=== PATIENT | female | born 1955 ===

== ENCOUNTER 2020-05-29 11:37 | Observation (INO) | payer MEDICARE, MEDICAID, SELFPAY ==
[2020-05-29] VITALS (7 sets, daily range): BP systolic 148–171; BP diastolic 66–85; PULSE 66–77; RESP 16–18; TEMP 36.7–36.8; O2SAT 95–97; BMI 37.8
--- NOTE | 2020-05-29 | ECG_ITS ---
Test Reason : DIZZINESS Blood Pressure : / mmHG Vent. Rate : 080 BPM Atrial Rate : 080 BPM P-R Int : 170 ms QRS Dur : 100 ms QT Int : 382 ms P-R-T Axes : 055 -26 037 degrees QTc Int : 440 ms Normal sinus rhythm Normal ECG When compared with ECG of 17-FEB-2018 15:22, No significant change was found Referred By: Generic ED Physician Electronically Signed By:Durga Garcia
--- NOTE | ~2020-05-29 | CT_ITS ---
EXAMINATION: CT ANGIOGRAM HEAD CT ANGIOGRAM NECK CLINICAL INFORMATION: Dizziness. Stroke. Outside treatment window. COMPARISON: CT head from 05/08/2008. TECHNIQUE: Initial noncontrast cnc machine programmer imaging of the head and neck was performed. Noncontrast head CT was also performed. Test bolus sequences followed by intravenous administration 70 mL of Omnipaque 350. Helical imaging was performed in the axial plane from the aortic arch to the skull vertex. Delayed postcontrast imaging of the head was also performed. The data was processed at the geospatial technologist's workstation for generation of MIP sequences. Angled MIPs and volume rendered reformatted images were also generated at an offline 3D workstation. Stenoses are assessed in accordance with NASCET criteria unless otherwise indicated. DLP: 2293 mGy-cm This CT examination was performed using dose optimization techniques as appropriate, variously including the following: *Automated exposure control. *Adjustment of mA and/or kV according to patient size (this includes techniques or standardized protocols for targeted exams where dose is matched to indication/reason for exam; i.e. extremities or head). *Use of iterative reconstruction technique. FINDINGS: CT Head: There is no evidence of acute intracranial hemorrhage or edematous territorial infarction. Scattered hypoattenuation in the periventricular and deep white matter are consistent with mild to moderate microangiopathy. Herrera-white matter differentiation is preserved. The ventricles are normal in size and configuration. No evidence for obstructive hydrocephalus. No abnormal mass effect or midline shift. No extra-axial fluid collections. No pathologic intra-axial enhancement or regional oligemia. No acute soft tissue or osseous abnormalities. Moderate mucosal thickening of the paranasal sinuses. Odontogenic disease with periapical lucency associated with the maxillary right premolar. The mastoid air cells and middle ear cavities are clear. CT Neck: The thyroid gland and remaining cervical soft tissues are within normal limits. Moderate degenerative disc disease at C4-C5 and C5-C6 with disc-osteophyte complex formation. Mild facet and uncovertebral joint arthropathy. CT Upper Chest: The visualized lung apices and upper mediastinum are within normal limits. Neck CTA: Aortic Arch: Normal contour and caliber with mild calcific atherosclerotic disease. Classic 3 vessel branching pattern of the aortic arch. Great Vessel Origins: No significant stenosis of the branch origins. Right Common Carotid Artery: Normal opacification without focal stenosis or occlusion. Cervical Right Internal Carotid Artery: Mild calcific atherosclerotic disease of the carotid bulb and proximal internal carotid artery without flow-limiting stenosis. Left Common Carotid Artery: Normal opacification without focal stenosis or occlusion. Cervical Left Internal Carotid Artery: Mild calcific atherosclerotic disease of the carotid bulb and proximal internal carotid artery without flow-limiting stenosis. Cervical Right Vertebral Artery: Co-dominant. Normal opacification without focal stenosis or occlusion. Cervical Left Vertebral Artery: Co-dominant. Normal opacification without focal stenosis or occlusion. Brain CTA: Intracranial Internal Carotid Arteries: Normal contrast opacification of the petrous, cavernous, paraophthalmic, and supraclinoid segments of the internal carotid arteries without focal stenosis. Right Anterior Cerebral Artery: Normal A1 segment. Normal opacification of the distal segments of the AGGIE. Left Anterior Cerebral Artery: Normal A1 segment. There is a 0.2 cm aneurysm associated with the a 3 segment (image [id number]). Otherwise, normal Opacification of the distal segments of the AGGIE. Anterior Communicating Artery: Normal. Right Middle Cerebral Artery: Normal opacification of the M1 segment of the MCA without focal stenosis or occlusion. Normal arborization of the distal segments. Left Middle Cerebral Artery: Normal opacification of the M1 segment of the MCA without focal stenosis or occlusion. Normal arborization of the distal segments. Right Vertebral Artery: Normal opacification of the V4 segment. Normal opacification of the proximal segments of the posterior inferior cerebellar artery. Left Vertebral Artery: Normal opacification of the V4 segment. Normal opacification of the proximal segments of the posterior inferior cerebellar artery. Basilar Artery: Normal opacification without focal stenosis or occlusion. Normal appearance of the proximal superior cerebellar arteries. Right Posterior Cerebral Artery: Normal P1 segment. Normal opacification of the distal segments of the DRUPAL PHP DEVELOPER. Left Posterior Cerebral Artery: Normal P1 segment. Normal opacification of the distal segments of the DRUPAL PHP DEVELOPER. Normal opacification of the superior sagittal, straight, transverse, and sigmoid sinuses. CT/CT angio head neck IMPRESSION: 1. No evidence of acute intracranial hemorrhage or edematous territorial infarction. 2. There is a 0.2 cm aneurysm associated with the A3 segment of the left anterior cerebral artery. 3. CTA of the head and neck without proximal occlusion or flow-limiting stenosis.
[2020-05-29 14:57] LABS: MANUAL DIFF FLAG NO
[2020-05-29 14:58] LABS: Basophils Percent Auto 0.6 % (0-2); Eosinophils Absolute Auto 0.1 X10*3/uL (0.0-0.4); Hematocrit 38.9 % (37-47); Hemoglobin 12.6 g/dl (12.0-16.0); Imm Gran Abs Auto 0.02 X10*3/uL (0.00-0.03); Imm Gran Pct Auto 0.3 % (0.0-0.4); Lymphocytes Absolute Auto 2.2 X10*3/uL (1.2-4.9); Lymphocytes Percent Auto 30.6 % (20-40); Mean Corpuscular HGB Conc 32.4 g/dl (31.0-35.0); Mean Corpuscular Hemoglobin 26.8 pg (27.0-33.0); Mean Corpuscular Volume 82.6 fL (80-98); Mean Platelet Volume 10.8 fL (9.4-12.3); Monocytes Absolute Auto 0.5 X10*3/uL (0.1-1.2); Monocytes Percent Auto 6.5 % (2-11); Neutrophils Absolute Auto 4.3 X10*3/uL (2.0-8.3); Platelet Count 212 X10*3/uL (160-400); Red Blood Count 4.71 X10*6/uL (4.20-5.50); Red Cell Distribution Width 12.3 % (11.0-16.0); White Blood Count 7.1 X10*3/uL (4.8-10.8)
[2020-05-29 15:18] LABS: Anion Gap 12 (12-20); Blood Urea Nitrogen 14 mg/dL (9-16); Calcium 10.9 mg/dL (8.4-10.2); Carbon Dioxide 30 mmol/L (22-29); Chloride 99 mmol/L (96-108); Estimated Glomerular Filt Rate > 60; Glucose Random 189 mg/dL (60-115); Potassium 4.3 mmol/L (3.3-5.1); Sodium 137 mmol/L (135-145)
[2020-05-29 15:49] LABS: Glucose, Whole Blood 143 mg/dL (60-115)
[2020-05-29] MEDS: 0.9 % Sodium Chloride 1,000 ML 999 ML IV (18:19)
[2020-05-29] MEDS: Meclizine HCl 25 MG TABLET 50 MG PO (18:19)
[2020-05-29 18:26] LABS: Glucose Urine UA NEG (NEG); Leukocyte Esterase Urine TRACE (NEG); Nitrite Urine POS (NEG); PH >= 9.0 (5.0-8.0); UACC Culture Trigger YES; Urine Blood NEG (NEG); Urine Ketones NEG (NEG); Urine Protein NEG (NEG-TRACE)
--- NOTE | 2020-05-29 18:26 | ED.GENADULT ---
HPI - General Adult General Chief complaint: Nausea/Vomiting/Diarrhea Stated complaint: HIGH BS,DIZZINESS Time Seen by Provider: 05/29/20 12:35 Source: patient Mode of arrival: ambulatory Limitations: no limitations History of Present Illness HPI narrative: Patient presents to ED for dizziness which occurred while she was sitting at 10:00 o'clock in the morning. Patient felt like she was moving. Patient denied having any slurred speech, loss of vision, facial droop, or paralysis of extremities. Patient states when she stood up dizziness got worse. Patient states when dizziness episode occurred her blood pressure systolic was 144 and fingerstick glucose was 200s. Patient denies ever having chest pain, headache, or passing out. Related Data Home Medications Medication Instructions Recorded Confirmed allopurinol 100 mg PO DAILY 05/29/20 05/29/20 amlodipine 5 mg PO DAILY 05/29/20 05/29/20 aspirin 81 mg PO DAILY 05/29/20 05/29/20 atorvastatin 40 mg PO BEDTIME 05/29/20 05/29/20 blood sugar diagnostic [FreeStyle 05/29/20 05/29/20 Lite Strips] cholecalciferol (vitamin D3) 50 mcg PO QAM 05/29/20 05/29/20 citalopram 20 mg PO DAILY 05/29/20 05/29/20 dulaglutide [Trulicity] 1.5 mg SUBCUT QWEEK 05/29/20 05/29/20 insulin glargine [Lantus U-100 25 unit SUBCUT DAILY 05/29/20 05/29/20 Insulin] metformin 1,000 mg PO BID 05/29/20 05/29/20 Allergies Allergy/AdvReac Type Severity Reaction Status Date / Time No Known Allergies Allergy Unverified 12/27/19 16:37 [No Known Allergies*] Review of Systems Review of Systems: Yes all other systems are reviewed and are negative Constitutional: Constitutional: Reports as per HPI, Reports no additional constitutional complaints and Reports anorexia Eyes: Eyes: Reports as per HPI and Reports no additional eye complaints ENT: Reports system reviewed and no additional complaints, except as documented, Reports as per HPI, Reports vertigo and Reports dizziness Cardiovascular: Cardiovascular: Reports as per HPI and Reports no additional cardiovascular complaints Respiratory: Respiratory: Reports as per HPI and Reports no additional respiratory complaints Gastrointestinal: Gastrointestinal: Reports as per HPI and Reports no additional gastrointestinal complaints Genitourinary: Genitourinary: Reports no additional female genitourinary complaints and Reports as per HPI Musculoskeletal: Musculoskeletal: Reports no additional musculoskeletal complaints and Reports as per HPI Neurologic: Reports system reviewed and no additional complaints, except as documented, Reports as per HPI, Reports vertigo and Reports dizziness Psychiatric: Psychiatric: Reports no additional psychiatric complaints and Reports as per HPI [facility]LY [facility] Past Medical History Medical History (Updated 05/30/20 @ 01:07 by HUMAIRA Hernandez) Diabetes type 2, uncontrolled HTN (hypertension) Vitamin D deficiency Social History Social History Smoking Status: Unknown if ever smoked Use of substances other than those prescribed or required for medical reasons: No Advance Directives: No Advance Directives Information Provided: Yes Physical Exam Vital Signs: Vital Signs: Last Vital Signs Temp 98.3 F 05/29/20 20:22 Pulse 76 05/29/20 22:16 Resp 18 05/29/20 22:16 BP 152/72 H 05/29/20 22:16 Pulse Ox 97 05/29/20 22:16 Body Mass Index 37.8 Const: General: cooperative, healthy appearing, comfortable, no acute distress, well developed, alert, awake and Physically active HENMT: Other: Patient has known chronic left ear hearing loss Head: Yes normal to inspection, Yes No palpable skull fracture present, Yes normocephalic, Yes atraumatic, Yes abrasion, No Gerber's sign, No contusion, No cranial bruits, No hematoma, No laceration, No occipital foramen tenderness, No palpable skull fracture, No raccoon eyes, No scalp tenderness, No Temporal artery tenderness present and No periorbital ecchymosis Ears: external ears normal, TM's normal bilaterally and TM normal on the right Eyes: Other: Positive for left horizontal nystagmus General: appearance normal, both eyes and all related structures Neck: Neck: Yes normal visual inspection, Yes full ROM, Yes no lymphadenopathy, Yes no meningeal signs, Yes trachea midline, Yes supple and No tender Chest: Chest palpation & inspection: normal inspection of the chest and normal palpation of entire chest wall Resp: Effort & Inspection: normal respiratory effort and able to speak in complete sentences Auscultation: clear to auscultation bilaterally Cardio: Jugular venous distension: no JVD Heart sounds: S1 normal heart sound present and S2 normal heart sound present GI: Inspection: Yes normal to inspection and No abdominal wall ecchymosis Palpation (GI): Soft to palpation, not firm, nontender, no guarding and not rigid : General: No CVA tenderness and Yes no CVA tenderness Back/Spine/Pelvis: Back: no CVA tenderness, No CVA tenderness and No back tenderness Skin: General skin exam: no rashes or lesions noted and elasticity normal Neuro: Other: Negative for facial droop. Negative slurred speech. Negative pronator drift. All extremities motor strength are equal and 5+. Rapid hand movement is intact. Tried to do Romberg but patient felt dizzy and almost fell. General: no meningeal signs Extrem: General: Yes normal to inspection and Yes full ROM Psych: Appearance: grossly normal, well kempt and not disheveled Course Course Course Narrative: Negative for any neuro deficit. If stroke patient already of the window. Blood pressure and fingerstick glucose are normal. Will have cardiac evaluation due to risk factors of age and diabetes. The patient of the window and orthostatics negative will send patient for head CT a. Will give fluids. Also given meclizine 50 mg. If patient does not improve will reassess and may need to be admitted for MRI to rule out posterior cerebellar stroke if there is no improvement. Reevaluation(s) Reevaluation #1: While a in the CT scan room per hours informed by technical service representative the patient states she had allergic reaction in the past with IV contrast. Patient states having hives, but no anaphylactic reaction. Patient given Benadryl and Solu-Medrol before CT scan was performed. Patient's troponin negative. UA shows nitrate. Avoid orthostatic results. Time: 19:40 Reevaluation #2: Patient's orthostatics negative. Awaiting for results of head CT a. Time: 20:04 Reevaluation #3: Head CT is negative for signs of stroke. 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 Case presented to hospitalist Dr. Rouse for admission for MRI in the morning to rule out posterior stroke . On ambulation patient felt dizzy. Valium ordered. Patient started on antibiotics for UTI. Patient has no urinary symptoms. Medical Decision Making MDM Narrative Medical decision making narrative: Dizziness. BRIELLE Lab Data Result diagrams: 05/29/20 14:51 05/29/20 14:51 Labs: Lab Results 05/29/20 05/29/20 05/29/20 Range/Units 14:51 14:51 15:42 WBC 7.1 (4.8-10.8) X10*3/uL RBC 4.71 (4.20-5.50) X10*6/uL Hgb 12.6 (12.0-16.0) g/dl Hct 38.9 (37-47) % MCV 82.6 (80-98) fL MCH 26.8 L (27.0-33.0) pg MCHC 32.4 (31.0-35.0) g/dl RDW 12.3 (11.0-16.0) % Plt Count 212 (160-400) X10*3/uL MPV 10.8 (9.4-12.3) fL Immature Gran % (Auto) 0.3 (0.0-0.4) % Neut % (Auto) 60.0 (45-73) % Lymph % (Auto) 30.6 (20-40) % Ogle % (Auto) 6.5 (2-11) % Eos % (Auto) 2.0 (0-4) % Baso % (Auto) 0.6 (0-2) % Lymph # (Auto) 2.2 (1.2-4.9) X10*3/uL Ogle # (Auto) 0.5 (0.1-1.2) X10*3/uL Eos # (Auto) 0.1 (0.0-0.4) X10*3/uL Baso # (Auto) 0.0 (0.0-0.2) X10*3/uL Abs Immat Gran (auto) 0.02 (0.00-0.03) X10*3/uL Absolute Neuts (auto) 4.3 (2.0-8.3) X10*3/uL Absolute Nucleated RBC 0.000 (0.0-0.012) X10*3/uL Nucleated RBC % (auto) 0.0 (0.0-0.2) /100WBC PT (10.8-13.0) SEC INR (0.9-1.1) APTT (24.1-38.0) SEC Sodium 137 (135-145) mmol/L Potassium 4.3 (3.3-5.1) mmol/L Chloride 99 (96-108) mmol/L Carbon Dioxide 30 H (22-29) mmol/L Anion Gap 12 (12-20) BUN 14 (9-16) mg/dL Creatinine 0.77 (0.5-1.4) mg/dL Estim Creat Clear Calc TNP Estimated GFR > 60 POC Glucose 143 H (60-115) mg/dL Random Glucose 189 H (60-115) mg/dL Calcium 10.9 H (8.4-10.2) mg/dL Troponin I High Sens (<3.5-17.0) ng/L Urine Color Urine Appearance Urine pH (5.0-8.0) Ur Specific [place] (1.005-1.025) Urine Protein (NEG-TRACE) MG/DL Urine Glucose (UA) (NEG) MG/DL Urine Ketones (NEG) MG/DL Urine Blood (NEG) Urine Nitrite (NEG) Ur Leukocyte Esterase (NEG) Urine RBC (0) /HPF Urine WBC (0-4) /HPF Ur Squamous Epith Cells /LPF Urine Bacteria /LPF 05/29/20 05/29/20 05/29/20 Range/Units 18:11 18:17 18:17 WBC (4.8-10.8) X10*3/uL RBC (4.20-5.50) X10*6/uL Hgb (12.0-16.0) g/dl Hct (37-47) % MCV (80-98) fL MCH (27.0-33.0) pg MCHC (31.0-35.0) g/dl RDW (11.0-16.0) % Plt Count (160-400) X10*3/uL MPV (9.4-12.3) fL Immature Gran % (Auto) (0.0-0.4) % Neut % (Auto) (45-73) % Lymph % (Auto) (20-40) % Ogle % (Auto) (2-11) % Eos % (Auto) (0-4) % Baso % (Auto) (0-2) % Lymph # (Auto) (1.2-4.9) X10*3/uL Ogle # (Auto) (0.1-1.2) X10*3/uL Eos # (Auto) (0.0-0.4) X10*3/uL Baso # (Auto) (0.0-0.2) X10*3/uL Abs Immat Gran (auto) (0.00-0.03) X10*3/uL Absolute Neuts (auto) (2.0-8.3) X10*3/uL Absolute Nucleated RBC (0.0-0.012) X10*3/uL Nucleated RBC % (auto) (0.0-0.2) /100WBC PT 12.4 (10.8-13.0) SEC INR 1.0 (0.9-1.1) APTT 33.3 (24.1-38.0) SEC Sodium (135-145) mmol/L Potassium (3.3-5.1) mmol/L Chloride (96-108) mmol/L Carbon Dioxide (22-29) mmol/L Anion Gap (12-20) BUN (9-16) mg/dL Creatinine (0.5-1.4) mg/dL Estim Creat Clear Calc Estimated GFR POC Glucose (60-115) mg/dL Random Glucose (60-115) mg/dL Calcium (8.4-10.2) mg/dL Troponin I High Sens < 3.5 (<3.5-17.0) ng/L Urine Color YELLOW Urine Appearance CLOUDY Urine pH >= 9.0 H (5.0-8.0) Ur Specific [place] 1.010 (1.005-1.025) Urine Protein NEG (NEG-TRACE) MG/DL Urine Glucose (UA) NEG (NEG) MG/DL Urine Ketones NEG (NEG) MG/DL Urine Blood NEG (NEG) Urine Nitrite POS H (NEG) Ur Leukocyte Esterase TRACE H (NEG) Urine RBC 0-2 (0) /HPF Urine WBC 1-4 (0-4) /HPF Ur Squamous Epith Cells TRACE /LPF Urine Bacteria 2+ /LPF ECG Data Interpretation: Normal sinus rhythm. Normal EKG. Negative STEMI. Ventricular rate 80. LA interval 170. QTC 440. Discharge Plan Discharge Clinical Impression: Dizziness, Acute UTI Patient Disposition: Admitted As Inpatient
[2020-05-29 18:30] LABS: Appearance Urine CLOUDY; Color Urine YELLOW
[2020-05-29 18:32] LABS: Prothrombin Time 12.4 SEC (10.8-13.0)
[2020-05-29 18:35] LABS: Partial Thromboplastin Time 33.3 SEC (24.1-38.0)
[2020-05-29 18:38] LABS: Bacteria Urine 2+ /LPF; RBC Urine 0-2 /HPF (0); Squamous Epithelial Cell Urine TRACE /LPF
[2020-05-29 18:52] LABS: Troponin-I High Sensitivity < 3.5 ng/L (<3.5-17.0)
--- NOTE | 2020-05-29 19:17 | PC.NURSE ---
Patient in cat scan for cta. Patient had an allergic reaction to contrast and was medicated per emar as noted.
[2020-05-29] MEDS: methylPREDNISolone Sod Succ/PF 125 MG/2 ML VIAL IVPUSH (19:18)
[2020-05-29] MEDS: diphenhydrAMINE HCL 50 MG/ML VIAL IVPUSH (19:18)
[2020-05-29] MEDS: iohexoL 350 MG/ML 100 ML INFUS..BTL IV (19:31)
--- NOTE | 2020-05-29 22:08 | PM.IMHP ---
History of Present Illness Date of Service: 05/29/20 Chief Complaint: Dizziness 65-year-old female with a past medical history of hypertension, diabetes, left ear hearing loss presented to the hospital with a chief complaint of dizziness. Patient reports that around 10:00 a.m. she was sitting and suddenly felt room spinning associated nausea vomiting. Denies any headaches or blurry visions. When she tried to stand up her symptoms got worsened. Subsequently came to the ER for further evaluation. Denies any chest pain palpitations. Denies any numbness tingling. Denies any fever chills cough. Denies any recent travel or sick contacts. Denies any focal weakness. Denies any fall or loss of consciousness. Review of all other systems is negative except mentioned above ER course: Per ER team patient's exam was nonfocal CTA head and neck showed no acute findings except for small aneurysm. Patient on exam also noted to have nystagmus. Patient was given meclizine with improvement slightly. But was unsteady on gait. Orthostatics were negative EKG nonischemic and troponins negative. Also noted to have UTI-given antibiotics. Admitted to the hospital for further management [facility] Medical History (Updated 05/30/20 @ 01:07 by HUMAIRA Hernandez) Diabetes type 2, uncontrolled HTN (hypertension) Vitamin D deficiency Social History Smoking Status: Unknown if ever smoked Use of substances other than those prescribed or required for medical reasons: No Advance Directives: No Advance Directives Information Provided: Yes Meds Allergies Allergy/AdvReac Type Severity Reaction Status Date / Time No Known Allergies Allergy Unverified 12/27/19 16:37 [No Known Allergies*] Active Medications: Current Medications Generic Name Dose Route Start Last Admin Trade Name Freq PRN Reason Stop Dose Admin Acetaminophen 650 mg 05/29/20 22:03 Acetaminophen Supp 650 Mg Supp.Rect KS Q6H PRN Pain, Mild (Pain Scale 1-3) Ceftriaxone Sodium 1 gm/ 50 mls @ 100 mls/hr 05/29/20 22:03 Sodium Chloride IV 05/29/20 22:32 ONCE ONE Ceftriaxone Sodium 1 gm/ 50 mls @ 100 mls/hr 05/29/20 22:15 Sodium Chloride IV Q24H [facility] Insulin Human Lispro 0 unit 05/30/20 07:30 Insulin Lispro 100 Unit/Ml 3 Ml Vial SUBCUT QIDACHS [facility] Labetalol HCl 10 mg 05/29/20 22:06 Labetalol Hcl 100 Mg/20 Ml Vial IVPUSH Q4H PRN BP>140/90 Meclizine HCl 25 mg 05/29/20 22:05 Meclizine Hcl 25 Mg Tablet PO Q8H PRN dizziness Pharmacy Consult 1 each 05/29/20 21:52 Consult Rx Perform Med Rec MISCELLANE ONCE PRN Consult order Sodium Chloride 3 ml 05/30/20 00:00 0.9 % Sodium Chloride Flush 3 Ml Syringe IVFLUSH QSWVFT [facility] Home Medications Medication Instructions Recorded Confirmed Last Taken Type allopurinol 100 mg PO DAILY 05/29/20 05/29/20 Unknown History amlodipine 5 mg PO DAILY 05/29/20 05/29/20 Unknown History aspirin 81 mg PO DAILY 05/29/20 05/29/20 Unknown History atorvastatin 40 mg PO BEDTIME 05/29/20 05/29/20 Unknown History blood sugar diagnostic [FreeStyle 05/29/20 05/29/20 Unknown History Lite Strips] cholecalciferol (vitamin D3) 50 mcg PO QAM 05/29/20 05/29/20 Unknown History citalopram 20 mg PO DAILY 05/29/20 05/29/20 Unknown History dulaglutide [Trulicity] 1.5 mg SUBCUT QWEEK 05/29/20 05/29/20 Unknown History insulin glargine [Lantus U-100 25 unit SUBCUT DAILY 05/29/20 05/29/20 Unknown History Insulin] metformin 1,000 mg PO BID 05/29/20 05/29/20 Unknown History Physical Exam Vital Signs and Narrative: Vital Signs: Last Vital Signs Temp 98.3 F 05/29/20 20:22 Pulse 66 05/29/20 20:22 Resp 18 05/29/20 20:22 BP 148/66 H 05/29/20 20:22 Pulse Ox 96 05/29/20 20:22 Body Mass Index 37.8 Gen: Appears be in no acute distress HEENT: NCAT, Moist mucosa. Pulmonary: Vesicular breath sounds, fair air entry CVS: Normal S1-S2 Abdomen: BS+, Soft, Nontender Extremities: Warm well perfused Neuro: Alert and awake. Grossly nonfocal Gait not assessed Results Labs CBC and Chem 7: 05/29/20 14:51 05/29/20 14:51 Labs: Laboratory Results - last 24 hr 05/29/20 05/29/20 05/29/20 14:51 14:51 15:42 MCV 82.6 MCH 26.8 L MCHC 32.4 RDW 12.3 Plt Count 212 MPV 10.8 Immature Gran % (Auto) 0.3 Neut % (Auto) 60.0 Lymph % (Auto) 30.6 [place] % (Auto) 6.5 Eos % (Auto) 2.0 Baso % (Auto) 0.6 Lymph # (Auto) 2.2 [place] # (Auto) 0.5 Eos # (Auto) 0.1 Baso # (Auto) 0.0 Abs Immat Gran (auto) 0.02 Absolute Neuts (auto) 4.3 Absolute Nucleated RBC 0.000 Nucleated RBC % (auto) 0.0 PT INR APTT Anion Gap 12 Estim Creat Clear Calc TNP Estimated GFR > 60 POC Glucose 143 H Random Glucose 189 H Calcium 10.9 H Troponin I High Sens Urine Color Urine Appearance Urine pH Ur Specific [place] Urine Protein Urine Glucose (UA) Urine Ketones Urine Blood Urine Nitrite Ur Leukocyte Esterase Urine RBC Urine WBC Ur Squamous Epith Cells Urine Bacteria 05/29/20 05/29/20 05/29/20 18:11 18:17 18:17 MCV MCH MCHC RDW Plt Count MPV Immature Gran % (Auto) Neut % (Auto) Lymph % (Auto) [place] % (Auto) Eos % (Auto) Baso % (Auto) Lymph # (Auto) [place] # (Auto) Eos # (Auto) Baso # (Auto) Abs Immat Gran (auto) Absolute Neuts (auto) Absolute Nucleated RBC Nucleated RBC % (auto) PT 12.4 INR 1.0 APTT 33.3 Anion Gap Estim Creat Clear Calc Estimated GFR POC Glucose Random Glucose Calcium Troponin I High Sens < 3.5 Urine Color YELLOW Urine Appearance CLOUDY Urine pH >= 9.0 H Ur Specific [place] 1.010 Urine Protein NEG Urine Glucose (UA) NEG Urine Ketones NEG Urine Blood NEG Urine Nitrite POS H Ur Leukocyte Esterase TRACE H Urine RBC 0-2 Urine WBC 1-4 Ur Squamous Epith Cells TRACE Urine Bacteria 2+ Imaging Radiologist's Impressions: Impressions Head/Neck CTA 05/29/20 18:35 IMPRESSION: 1. No evidence of acute intracranial hemorrhage or edematous territorial infarction. 2. There is a 0.2 cm aneurysm associated with the A3 segment of the left anterior cerebral artery. 3. CTA of the head and neck without proximal occlusion or flow-limiting stenosis. Assessment and Plan (1) Dizziness: Status: Acute 65-year-old female with a past medical history of hypertension, diabetes, left ear hearing loss presented to the hospital with a chief complaint of dizziness/room spinning. Noted to have vertigo. Vertigo: Concern for BPPV. Patient noted to have nausea vomiting and also nystagmus along with the symptoms. Symptoms slightly improved with meclizine. Currently unsteady on gait-fall precautions. PT/OT. Patient would benefit vestibular rehab as outpatient. CTA showed no acute findings. Troponins negative, EKG nonischemic, orthostatics negative. Neurology consult for further recommendations Meclizine p.r.n. UTI: Continue ceftriaxone. Follow up cultures. Brain aneurysm: Patient currently denies any headaches or blurry visions. Labetalol p.r.n. to keep the goal blood pressure less than 140/90. Diabetes: Insulin sliding scale. Follow fingerstick glucose. Titrate insulins as needed. Hypertension: Continue home medications DVT prophylaxis: SCD boots Full code
[2020-05-29 22:33] LABS: Glucose, Whole Blood 247 mg/dL (60-115)
[2020-05-29 22:51] LABS: COVID-19 Test Negative (Negative); IDNOW Serial# 9DD0AD1C
[2020-05-29] MEDS: diazePAM 5 MG TABLET PO (23:11)
[2020-05-29] MEDS: cefTRIAXone sodium 1 GM in 0.9 % Sodium Chloride 50 ML IV (23:11)
[2020-05-29] MEDS: 0.9 % Sodium Chloride 1,000 ML 75 ML IVCONT (23:58)
[2020-05-30] VITALS (10 sets, daily range): BP systolic 113–144; BP diastolic 50–74; PULSE 66–89; RESP 13–21; TEMP 36.1–36.6; O2SAT 95–98
[2020-05-30 00:29] LABS: Reflex Lactate? Lactic Acid Added
[2020-05-30 02:55] LABS: Reflex Lactate? 2 Y
[2020-05-30 03:57] LABS: Magnesium 1.5 mg/dL (1.6-2.6)
[2020-05-30 04:08] LABS: ~Lactic Acid-LAB USE ONLY 3.4 mmol/L (0.5-2.0)
[2020-05-30 07:52] LABS: Glucose, Whole Blood 305 mg/dL (60-115)
[2020-05-30 08:07] LABS: MANUAL DIFF FLAG NO
[2020-05-30] MEDS: Aspirin Enteric Coated 81 MG TABLET.DR PO (08:07)
[2020-05-30] MEDS: amLODIPine Besylate 5 MG TABLET PO (08:07)
[2020-05-30] MEDS: allopurinoL 100 MG TABLET PO (08:08)
[2020-05-30] MEDS: Insulin Lispro 100 UNIT/ML 3 ML VIAL SUBCUT ×3 (08:08→20:49)
[2020-05-30] MEDS: Cholecalciferol (Vitamin D3) 25 MCG TABLET 50 MCG PO (08:08)
[2020-05-30] MEDS: Escitalopram Oxalate 10 MG TABLET PO (08:08)
[2020-05-30] MEDS: metFORMIN HCl 1,000 MG TABLET 1000 MG PO ×2 (08:08→17:08)
[2020-05-30 08:11] LABS: Basophils Percent Auto 0.1 % (0-2); Imm Gran Abs Auto 0.03 X10*3/uL (0.00-0.03); Imm Gran Pct Auto 0.3 % (0.0-0.4); Lymphocytes Absolute Auto 1.1 X10*3/uL (1.2-4.9); Lymphocytes Percent Auto 10.3 % (20-40); Mean Corpuscular HGB Conc 32.4 g/dl (31.0-35.0); Mean Corpuscular Hemoglobin 26.5 pg (27.0-33.0); Mean Corpuscular Volume 81.7 fL (80-98); Mean Platelet Volume 10.9 fL (9.4-12.3); Monocytes Absolute Auto 0.2 X10*3/uL (0.1-1.2); Monocytes Percent Auto 1.5 % (2-11); Neutrophils Percent Auto 87.8 % (45-73); Platelet Count 222 X10*3/uL (160-400); Red Blood Count 4.53 X10*6/uL (4.20-5.50); Red Cell Distribution Width 12.3 % (11.0-16.0); White Blood Count 10.3 X10*3/uL (4.8-10.8)
[2020-05-30 08:37] LABS: Anion Gap 15 (12-20); Blood Urea Nitrogen 20 mg/dL (9-16); Calcium 9.7 mg/dL (8.4-10.2); Carbon Dioxide 23 mmol/L (22-29); Chloride 99 mmol/L (96-108); Creatinine Clr Calc Pharmacy 77.5; Estimated Glomerular Filt Rate > 60; Glucose Random 323 mg/dL (60-115); Potassium 4.5 mmol/L (3.3-5.1); Sodium 132 mmol/L (135-145)
--- NOTE | 2020-05-30 10:00 | PC.NURSE ---
pt was ambulatory o bathroom with walker, she is able to self care for her ostomy appliance. Pt ambulated with steady gait
[2020-05-30 12:39] LABS: Glucose, Whole Blood 194 mg/dL (60-115)
[2020-05-30] MEDS: 0.9 % Sodium Chloride 1,000 ML 75 ML IVCONT (12:40)
--- NOTE | 2020-05-30 15:33 | P.CNNE_ITS ---
History of Present Illness Data of Consult Service Date: 05/30/20 Primary Care Provider: Unknown Physician HPI Reason for consult: Dizziness with nausea This is a 65-year-old woman with a history of hypertension diabetes and a previous sudden hearing loss in one year who was sitting when she suddenly developed vertiginous dizziness nausea and unsteadiness. She was brought to the hospital and admitted. She had a negative CT scan of the head and a CTA of the head and neck which showed no conclusive and flow-limiting lesions. 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 Review of Systems Eyes: Eyes: Reports no additional eye complaints ENT: Reports system reviewed and no additional complaints, except as documented and Reports Normal hearing present Cardiovascular: Cardiovascular: Reports no additional cardiovascular complaints Respiratory: Respiratory: Reports no additional respiratory complaints Gastrointestinal: Gastrointestinal: Reports no additional gastrointestinal complaints Musculoskeletal: Musculoskeletal: Reports no additional musculoskeletal complaints Integumentary/Breasts: Skin/Breast: Reports system reviewed and no additional complaints, except as docu Neurologic: Reports as per HPI and Reports Normal hearing present Psychiatric: Psychiatric: Reports as per HPI Endocrine: Endocrine: Reports no additional endocrine complaints Hematologic/Lymphatic: Hematologic/Lymphatic: Reports no additional hematologic/lymphatic complaints Allergic/Immunologic: Allergic/Immunologic: Reports no additional allergic/immunologic complaints [facility] Past Medical History Medical History (Updated 05/30/20 @ 15:36 by Gypsy Rodríguez MD) Diabetes type 2, uncontrolled HTN (hypertension) Vitamin D deficiency Social History Social History Smoking Status: Unknown if ever smoked Use of substances other than those prescribed or required for medical reasons: No Advance Directives: No Advance Directives Information Provided: Yes Meds Allergies Allergy/AdvReac Type Severity Reaction Status Date / Time No Known Allergies Allergy Unverified 12/27/19 16:37 [No Known Allergies*] Active Medications: Current Medications Generic Name Dose Route Start Last Admin Trade Name Freq PRN Reason Stop Dose Admin Acetaminophen 650 mg 05/29/20 22:03 Acetaminophen Supp 650 Mg Supp.Rect [place] Q6H PRN Pain, Mild (Pain Scale 1-3) Allopurinol 100 mg 05/30/20 09:00 05/30/20 08:08 Allopurinol 100 Mg Tablet PO 100 mg DAILY JERRELL Administration Amlodipine Besylate 5 mg 05/30/20 09:00 05/30/20 08:07 Amlodipine Besylate 5 Mg Tablet PO 5 mg DAILY [facility] Administration Protocol Aspirin 81 mg 05/30/20 09:00 05/30/20 08:07 Aspirin Enteric Coated 81 Mg Tablet. PO 81 mg DAILY [facility] Administration Atorvastatin Calcium 40 mg 05/30/20 21:00 Atorvastatin Calcium 40 Mg Tablet PO BEDTIME [facility] Escitalopram Oxalate 10 mg 05/30/20 09:00 05/30/20 08:08 Escitalopram Oxalate 10 Mg Tablet PO 10 mg DAILY [facility] Administration Ceftriaxone Sodium 1 gm/ 50 mls @ 100 mls/hr 05/30/20 22:00 Sodium Chloride IV Q24H JERRELL Sodium Chloride 1,000 mls @ 75 mls/hr 05/29/20 23:00 05/30/20 12:40 Ns IVCONT 75 mls/hr .[id number] [facility] Administration Insulin Human Lispro 0 unit 05/30/20 07:30 05/30/20 12:41 Insulin Lispro 100 Unit/Ml 3 Ml Vial SUBCUT Not Given QIDACHS [facility] Protocol Labetalol HCl 10 mg 05/29/20 22:06 Labetalol Hcl 100 Mg/20 Ml Vial IVPUSH Q4H PRN BP>140/90 Meclizine HCl 25 mg 05/29/20 22:05 Meclizine Hcl 25 Mg Tablet PO Q8H PRN dizziness Metformin HCl 1,000 mg 05/30/20 08:00 05/30/20 08:08 Metformin Hcl 1,000 Mg Tablet PO 1,000 mg BID@0800,1700 [facility] Administration Pharmacy Consult 1 each 05/29/20 21:52 Consult Rx Perform Med Rec MISCELLANE ONCE PRN Consult order Sodium Chloride 3 ml 05/30/20 00:00 05/30/20 07:45 0.9 % Sodium Chloride Flush 3 Ml Syringe IVFLUSH Not Given QSHIFT [facility] Vitamin D 50 mcg 05/30/20 09:00 05/30/20 08:08 Cholecalciferol (Vitamin D3) 25 Mcg Tablet PO 50 mcg DAILY [facility] Administration Home Medications Medication Instructions Recorded Confirmed Last Taken Type allopurinol 100 mg PO DAILY 05/29/20 05/29/20 Unknown History amlodipine 5 mg PO DAILY 05/29/20 05/29/20 Unknown History aspirin 81 mg PO DAILY 05/29/20 05/29/20 Unknown History atorvastatin 40 mg PO BEDTIME 05/29/20 05/29/20 Unknown History blood sugar diagnostic [FreeStyle 05/29/20 05/29/20 Unknown History Lite Strips] cholecalciferol (vitamin D3) 50 mcg PO QAM 05/29/20 05/29/20 Unknown History citalopram 20 mg PO DAILY 05/29/20 05/29/20 Unknown History dulaglutide [Trulicity] 1.5 mg SUBCUT QWEEK 05/29/20 05/29/20 Unknown History insulin glargine [Lantus U-100 25 unit SUBCUT DAILY 05/29/20 05/29/20 Unknown History Insulin] metformin 1,000 mg PO BID 05/29/20 05/29/20 Unknown History Physical Exam Vital Signs: Vital Signs: Last Vital Signs Temp 98.3 F 05/29/20 20:22 Pulse 81 05/30/20 12:39 Resp 16 05/30/20 12:39 BP 142/60 H 05/30/20 12:39 Pulse Ox 95 05/30/20 12:39 Body Mass Index 37.8 Const: General: cooperative, comfortable, no acute distress, well developed, alert and awake Nutritional Appearance: well nourished Orientation/consciousness: oriented to person, oriented to place and oriented to time Limitations: no limitations HENMT: Head: Yes normal to inspection, Yes normocephalic and Yes atraumatic Ears: hearing grossly normal bilaterally General nose exam: Normal external nose present Face and sinus: Yes normal facial exam Mouth: Normal oral and palatal mucosa present Eyes: General: appearance normal, both eyes and all related structures Visual Gusman: normal visual gusman by confrontation Alignment and Position: alignment normal Periorbital: periorbital findings normal Eyelids: Yes eyelids normal Conjunctivae: conjunctivae normal Sclerae: sclerae normal Corneas: corneas normal Pupils: Equal, round and reactive pupils present and Pupil accommodation reflex normal EOM: EOMs intact bilaterally Direct Ophthalmoscopy: normal light reflex Neck: Neck: Yes normal visual inspection, Yes full ROM and Yes no meningeal signs Thyroid: Thyroid normal Carotids: normal carotid upstroke and bounding pulses Chest: Chest palpation & inspection: normal inspection of the chest Resp: Effort & Inspection: normal respiratory effort Auscultation: clear to auscultation bilaterally Cardio: Rate: regular rate Rhythm: regular rhythm Heart sounds: S1 normal heart sound present and S2 normal heart sound present Peripheral pulses: Peripheral pulses 2+ throughout GI: Inspection: Yes normal to inspection Percussion: Yes normal to percussion Auscultation: normal bowel sounds Rectal Exam - Female: deferred Back/Spine/Pelvis: Cervical Spine: normal cervical lordosis and cervical ROM normal Thoracic/Lumbar Spine: thoracic and lumbar spine normal to inspection Skin: General skin exam: no rashes or lesions noted Neuro: General: oriented to person, oriented to place, oriented to time, gait normal, tone normal, moves all extremities, Normal light touch and pain sensation, no meningeal signs, no focal motor deficits, CN's II-XI intact bilaterally, normal sensation to monofilament and deep tendon reflexes 2+ bilaterally Cranial nerves: Yes CN's II-XII intact bilaterally, Yes Equal, round and reactive pupils present, Yes Bilaterally intact EOM present, Yes Nystagmus not present, Yes Normal facial strength present, Yes Midline tongue present, Yes Normal gag reflex present, Yes Symmetric palate elevation present, Yes Normal hearing present and Yes Ability to bilaterally rotate head present Cognition (Neuro): normal cognition Speech: Other speech findings present (Neuro) Gait exam (Neuro): Normal gait present Motor exam (neuro): 5/5 motor strength present throughout, Pronator motor function not present, no tremor noted, no asterixis, Motor fasciculations not present, Normal motor muscle tone present throughout and Motor abnormalities not present Sensory Exam: Bilaterally intact graphesthesia Deep tendon reflexes (DTR's): Right triceps reflex intensity grade: 2+, Left triceps reflex intensity grade: 2+, Rt Biceps (C5, C6): 2+, Left biceps reflex intensity grade: 2+, Right brachioradialis reflex intensity grade: 2+, Left brachioradialis reflex intensity grade: 2+, Right patellar reflex intensity grade: 2+, Left patellar reflex intensity grade: 2+, Right ankle reflex intensity grade: 2+ and Left ankle reflex intensity grade: 2+ Plantar Reflex Responses: downgoing: right, left and bilateral Coordination: [id number] test normal, [id number] test normal, tandem gait normal and Romberg test negative Pupils: Normal pupillary reactivity/response: bilateral Extrem: General: Yes normal to inspection, Yes normal exam except as noted and Yes no pedal edema Psych: Appearance: grossly normal Mental Status: mental status grossly normal Speech and movement: Normal speech and movement present and Clear speech present Affect: normal affect Attitude: cooperative Thought process: Normal thought process present Results Labs CBC & Chem 7: 05/30/20 08:02 05/30/20 08:02 Labs: Short CBC 05/30/20 Range/Units 08:02 WBC 10.3 (4.8-10.8) X10*3/uL Hgb 12.0 (12.0-16.0) g/dl Hct 37.0 (37-47) % Plt Count 222 (160-400) X10*3/uL BMP 05/30/20 08:02 Sodium 132 L Potassium 4.5 Chloride 99 Carbon Dioxide 23 BUN 20 H Creatinine 0.83 Calcium 9.7 D Urine 05/29/20 Range/Units 18:11 Urine Color YELLOW Urine Appearance CLOUDY Urine pH >= 9.0 H (5.0-8.0) Ur Specific Brohman 1.010 (1.005-1.025) Urine Protein NEG (NEG-TRACE) MG/DL Urine Glucose (UA) NEG (NEG) MG/DL Microbiology Microbiology Results: Microbiology 05/29/20 18:15 Urine clean catch - Clean Catch Midstream Urine Culture - Final Assessment and Plan (1) Dizziness: Problem details: No evidence evidence of vertebrobasilar syndrome or occlusive intracranial disease. Most likely vestibular neuronitis Status: Acute Treat symptomatically with meclizine 25 mg every 8 hours when necessary. No evidence of vertebrobasilar syndrome
--- NOTE | 2020-05-30 15:34 | P.PNIM_ITS ---
Subjective Subjective Date of Service: 05/30/20 Interval History: patient seen and examined at bedside patient was reporting dizziness Constitutional Constitutional: Reports as per HPI, Reports no additional constitutional complaints and Reports anorexia Eyes Eyes: Reports as per HPI and Reports no additional eye complaints ENT Ears, Nose, Mouth, and Throat: Reports system reviewed and no additional complaints, except as documented, Reports as per HPI, Reports vertigo and Reports dizziness Cardiovascular Cardiovascular: Reports as per HPI and Reports no additional cardiovascular complaints Respiratory Respiratory: Reports as per HPI and Reports no additional respiratory complaints Gastrointestinal Gastrointestinal: Reports as per HPI and Reports no additional gastrointestinal complaints Musculoskeletal Musculoskeletal: Reports no additional musculoskeletal complaints and Reports as per HPI Neurologic Neurologic: Reports system reviewed and no additional complaints, except as documented, Reports as per HPI, Reports vertigo and Reports dizziness Psychiatric Psychiatric: Reports no additional psychiatric complaints and Reports as per HPI Physical Exam Vital Signs: Vital Signs: Last Vital Signs Temp 98.3 F 05/29/20 20:22 Pulse 81 05/30/20 12:39 Resp 16 05/30/20 12:39 BP 142/60 H 05/30/20 12:39 Pulse Ox 95 05/30/20 12:39 Body Mass Index 37.8 Const: General: cooperative, healthy appearing, comfortable, no acute distress, well developed, alert, awake and Physically active HENMT: Other: Patient has known chronic left ear hearing loss Head: Yes normal to inspection, Yes No palpable skull fracture present, Yes normocephalic, Yes atraumatic, Yes abrasion, No Gerber's sign, No contusion, No cranial bruits, No hematoma, No laceration, No occipital foramen tenderness, No palpable skull fracture, No raccoon eyes, No scalp tenderness, No Temporal artery tenderness present and No periorbital ecchymosis Ears: external ears normal, TM's normal bilaterally and TM normal on the right Eyes: Other: Positive for left horizontal nystagmus General: appearance normal, both eyes and all related structures Neck: Neck: Yes no meningeal signs Chest: Chest palpation & inspection: normal inspection of the chest and normal palpation of entire chest wall Resp: Effort & Inspection: normal respiratory effort and able to speak in complete sentences Auscultation: clear to auscultation bilaterally Cardio: Jugular venous distension: no JVD Heart sounds: S1 normal heart sound present and S2 normal heart sound present GI: Inspection: Yes normal to inspection and No abdominal wall ecchymosis Palpation (GI): Soft to palpation, not firm, nontender, no guarding and not rigid : General: No CVA tenderness and Yes no CVA tenderness Back/Spine/Pelvis: Back: no CVA tenderness, No CVA tenderness and No back tenderness Skin: General skin exam: no rashes or lesions noted and elasticity normal Neuro: Other: Negative for facial droop. Negative slurred speech. Negative pronator drift. All extremities motor strength are equal and 5+. Rapid hand movement is intact. Tried to do Romberg but patient felt dizzy and almost fell. General: no meningeal signs Extrem: General: Yes normal to inspection and Yes full ROM Psych: Appearance: grossly normal, well kempt and not disheveled Objective Data Current Medications Generic Name Dose Route Start Last Admin Trade Name Freq PRN Reason Stop Dose Admin Acetaminophen 650 mg 05/29/20 22:03 Acetaminophen Supp 650 Mg Supp.Rect MA Q6H PRN Pain, Mild (Pain Scale 1-3) Allopurinol 100 mg 05/30/20 09:00 05/30/20 08:08 Allopurinol 100 Mg Tablet PO 100 mg DAILY JERRELL Administration Amlodipine Besylate 5 mg 05/30/20 09:00 05/30/20 08:07 Amlodipine Besylate 5 Mg Tablet PO 5 mg DAILY [facility] Administration Protocol Aspirin 81 mg 05/30/20 09:00 05/30/20 08:07 Aspirin Enteric Coated 81 Mg Tablet. PO 81 mg DAILY [facility] Administration Atorvastatin Calcium 40 mg 05/30/20 21:00 Atorvastatin Calcium 40 Mg Tablet PO BEDTIME JERRELL Escitalopram Oxalate 10 mg 05/30/20 09:00 05/30/20 08:08 Escitalopram Oxalate 10 Mg Tablet PO 10 mg DAILY JERRELL Administration Ceftriaxone Sodium 1 gm/ 50 mls @ 100 mls/hr 05/30/20 22:00 Sodium Chloride IV Q24H JERRELL Sodium Chloride 1,000 mls @ 75 mls/hr 05/29/20 23:00 05/30/20 12:40 Ns IVCONT 75 mls/hr .[id number] JERRELL Administration Insulin Human Lispro 0 unit 05/30/20 07:30 05/30/20 12:41 Insulin Lispro 100 Unit/Ml 3 Ml Vial SUBCUT Not Given QIDACHS [facility] Protocol Labetalol HCl 10 mg 05/29/20 22:06 Labetalol Hcl 100 Mg/20 Ml Vial IVPUSH Q4H PRN BP>140/90 Meclizine HCl 25 mg 05/29/20 22:05 Meclizine Hcl 25 Mg Tablet PO Q8H PRN dizziness Metformin HCl 1,000 mg 05/30/20 08:00 05/30/20 08:08 Metformin Hcl 1,000 Mg Tablet PO 1,000 mg BID@0800,1700 [facility] Administration Pharmacy Consult 1 each 05/29/20 21:52 Consult Rx Perform Med Rec MISCELLANE ONCE PRN Consult order Sodium Chloride 3 ml 05/30/20 00:00 05/30/20 07:45 0.9 % Sodium Chloride Flush 3 Ml Syringe IVFLUSH Not Given QSHIFT [facility] Vitamin D 50 mcg 05/30/20 09:00 05/30/20 08:08 Cholecalciferol (Vitamin D3) 25 Mcg Tablet PO 50 mcg DAILY [facility] Administration Labs CBC & Chem 7: 05/30/20 08:02 05/30/20 08:02 Microbiology Microbiology Results: Microbiology 05/29/20 18:15 Urine clean catch - Clean Catch Midstream Urine Culture - Final Assessment and Plan (1) Dizziness: Problem details: No evidence evidence of vertebrobasilar syndrome or occlusive intracranial disease. Most likely vestibular neuronitis Status: Acute Assessment and Plan: 65-year-old female with a past medical history of hypertension, diabetes, left ear hearing loss presented to the hospital with a chief complaint of dizziness /room spinning. Noted to have vertigo. Dizziness Concern for BPPV. Patient noted to have nausea vomiting and also nystagmus along with dizziness Currently unsteady on gait-fall precautions. CTA showed no acute findings. Neurology consult for further recommendations Meclizine p.r.n. PT evaluation orthostatics negative. UTI: Continue ceftriaxone. Follow up cultures. Brain aneurysm: Patient currently denies any headaches or blurry visions. monitor blood pressure . Diabetes: continue Insulin sliding scale. Follow fingerstick glucose. Hypertension: Continue amlodipine DVT prophylaxis: SCD boots Full code
[2020-05-30 17:04] LABS: Glucose, Whole Blood 291 mg/dL (60-115)
[2020-05-30] MEDS: 0.9 % Sodium Chloride Flush 3 ML SYRINGE IVFLUSH ×2 (17:09→23:39)
[2020-05-30 20:22] LABS: Glucose, Whole Blood 265 mg/dL (60-115)
[2020-05-30] MEDS: Atorvastatin Calcium 40 MG TABLET PO (20:49)
[2020-05-30] MEDS: cefTRIAXone sodium 1 GM in 0.9 % Sodium Chloride 50 ML IV (20:50)
[2020-05-31 04:00] VITALS: BP 125/55; PULSE 71; RESP 16; TEMP 36.4; O2SAT 97
[2020-05-31 07:31] VITALS: BP 149/74; PULSE 67; RESP 18; TEMP 36.3; O2SAT 98
[2020-05-31 07:59] LABS: Glucose, Whole Blood 147 mg/dL (60-115)
[2020-05-31 09:09] VITALS: BP 149/74; PULSE 67
[2020-05-31] MEDS: Aspirin Enteric Coated 81 MG TABLET.DR PO (09:09)
[2020-05-31] MEDS: metFORMIN HCl 1,000 MG TABLET 1000 MG PO (09:09)
[2020-05-31] MEDS: Escitalopram Oxalate 10 MG TABLET PO (09:09)
[2020-05-31] MEDS: Cholecalciferol (Vitamin D3) 25 MCG TABLET 50 MCG PO (09:09)
[2020-05-31] MEDS: amLODIPine Besylate 5 MG TABLET PO (09:09)
[2020-05-31] MEDS: allopurinoL 100 MG TABLET PO (09:09)
[2020-05-31] MEDS: 0.9 % Sodium Chloride Flush 3 ML SYRINGE IVFLUSH (09:09)
--- NOTE | 2020-05-31 10:01 | MHC.CM.PN ---
Addendum entered by Julia Piña 05/31/20 11:00: [facility] has accepted referral pending PCP vrification. Original Note: Pt informed CM that her daughter takes care of her, and asked that she be called. CM contacted pts daughter, Diego ([phone]) who reported she lives with her mother and takes care of her. She reports she acts as pts PAPER RULER for two hours a day, but is there 24 hours per day to assist pt as needed. She reports the pt has a cane at home but was not needing it [facility], pt also has a shower chair. Pts daughter reports the pt did not have any other services [facility], but they are agreeable to [facility]NA. Per discussion, a referral was made to [facility]. pt has a HCP on file naming her daughter as her primary agent. Observation notice was explained to both the pt and her daughter Pt will DC home today with resumption of her P[employer]ER RULER services and a new referral to [facility]. Pts daughter will provide transportation and asks that she be called when pt is ready to DC.
--- NOTE | 2020-05-31 10:18 | P.DS_ITS ---
DS: Providers Provider Date of Service: 05/31/20 Date of admission: 05/29/20 22:03 Primary care physician: Unknown Physician Consults: 05/29/20 22:05 Consult to Neurology Routine Consulting Provider: [facility] Reason for consultation: dizzuiness; nystagmus; aneurysm on cta DS: Diagnosis Discharge Diagnosis (1) Dizziness: Status: Acute Problem details: No evidence evidence of vertebrobasilar syndrome or occlusive intracranial disease. Most likely vestibular neuronitis (2) Acute UTI: Status: Acute (3) Diabetes type 2, uncontrolled: Status: Acute (4) Vitamin D deficiency: Status: Acute DS: Medications Discharge Medications Home Medications: Home Medications Medication Instructions Recorded Confirmed Lantus U-100 Insulin 25 unit SUBCUT DAILY 05/29/20 05/29/20 Trulicity 1.5 mg SUBCUT QWEEK 05/29/20 05/29/20 allopurinol 100 mg PO DAILY 05/29/20 05/29/20 amlodipine 5 mg PO DAILY 05/29/20 05/29/20 aspirin 81 mg PO DAILY 05/29/20 05/29/20 atorvastatin 40 mg PO BEDTIME 05/29/20 05/29/20 blood sugar diagnostic [FreeStyle 05/29/20 05/29/20 Lite Strips] cholecalciferol (vitamin D3) 50 mcg PO QAM 05/29/20 05/29/20 citalopram 20 mg PO DAILY 05/29/20 05/29/20 metformin 1,000 mg PO BID 05/29/20 05/29/20 Previous Rx's Medication Instructions Recorded cefuroxime axetil 250 mg PO BID 7 Days #14 tab 05/31/20 DS: Summary Hospital Course Hospital Course: 65-year-old female with a past medical history of hypertension, diabetes, left ear hearing loss presented to the hospital with a chief complaint of dizziness. Patient reports that around 10:00 a.m. she was sitting and suddenly felt room spinning associated nausea vomiting. Denies any headaches or blurry visions. When she tried to stand up her symptoms got worsened. Subsequently came to the ER for further evaluation. Denies any chest pain palpitations. Denies any numbness tingling. Denies any fever chills cough. Denies any recent travel or sick contacts. Denies any focal weakness. Denies any fall or loss of consciousness. ER course: Per ER team patient's exam was nonfocal CTA head and neck showed no acute findings except for small aneurysm. Patient on exam also noted to have nystagmus. Patient was given meclizine with improvement slightly. But was unsteady on gait. Orthostatics were negative EKG nonischemic and troponins negative. Also noted to have UTI-given antibiotics. Admitted to the hospital for further management. hospital course 65-year-old female admitted with Dizziness and UTI for dizziness patient has CTA head and neck done on admission shows no acute stroke but small aneurysm and no significant stenosis, patient was seen by Neurology reconciled stroke less likely, dizziness likely secondary to vertigo for S patient has chronic deafness, patient was evaluated by Physical therapy initially recommended vestibular rehab, patient's dizziness resolved, patient was ambulating without dizziness, patient wants to go home patient was stable discharged home with visiting nurse for physical therapy for UTI patient was started on Rocephin urine culture grew mixed organism switched to p.o. Ceftin on discharge Time Spent with Patient Time attestation: Total time spent providing and/or coordinating discharge services: Discharge coordination time: Greater than 30 minutes Physical Exam Vital Signs: Vital Signs: Last Vital Signs Temp 97.4 F 05/31/20 07:31 Pulse 67 05/31/20 09:09 Resp 18 05/31/20 07:31 BP 149/74 H 05/31/20 09:09 Pulse Ox 98 05/31/20 07:31 Body Mass Index 37.8 DS: Data Data Completed and Pending Labs on day of discharge: Laboratory Results - last 24 hr 05/30/20 05/30/20 05/30/20 12:36 16:59 19:44 POC Glucose 194 H 291 H 265 H 05/31/20 07:34 POC Glucose 147 H Preliminary micro results at discharge 05/29/20 22:26 Blood Culture - Preliminary Blood - Venous No growth after 24 hours. 05/29/20 22:24 Blood Culture - Preliminary Blood - Venous No growth after 24 hours. Discharge Plan Discharge Anticipated Discharge Date/Time: 05/31/20 09:39 Patient Disposition: Home Health Service Referrals: [facility] [Outside] Buzz Bullock NP [Nurse Practitioner] - Physician,Unknown [Primary Care Provider] - Discharge Medications: New cefuroxime axetil 250 mg tablet 250 mg PO BID 7 Days Qty: 14 RF: 0 Continued cholecalciferol (vitamin D3) 50 mcg (2,000 unit) capsule 50 mcg PO QAM RF: 0 atorvastatin 40 mg Tablet 40 mg PO BEDTIME RF: 0 amlodipine 5 mg Tablet 5 mg PO DAILY RF: 0 allopurinol 100 mg Tablet 100 mg PO DAILY RF: 0 aspirin 81 mg Tablet,Delayed Release (Dr/Ec) 81 mg PO DAILY RF: 0 citalopram 20 mg Tablet 20 mg PO DAILY RF: 0 metformin 1,000 mg Tablet 1,000 mg PO BID RF: 0 Trulicity 1.5 mg/0.5 mL Pen Injector 1.5 mg SUBCUT QWEEK RF: 0 Lantus U-100 Insulin 100 unit/mL Solution 25 unit SUBCUT DAILY RF: 0 No Action (DME) FreeStyle Lite Strips Strip MISCELLANEOUS QID RF: 0 Discharge Orders: Discharge Order (Routine); Ordered 05/31/20 Ordered By: Jose Rojas Diet: advance to usual diet Activity on Discharge: As tolerated Stand Alone Forms: Patient Portal Discharge page Care Plan Goals: treat vertigo Health Concerns: vertigo Plan of Treatment: VNS , Discharge Date/Time: 05/31/20 11:42
--- NOTE | 2020-05-31 10:19 | P.F2F_ITS ---
Service Date Service Date: 05/31/20 Encounter Date of encounter: 05/30/20 Reasons for Services Reason for physical therapy: home safety and mobility and therapeutic exercises Homebound: Leaving the home is medically contraindicated at this time without the asist of a device and/or another person due th the listed conditions above and below. Reason homebound: unsteady gait / fall risk Certification: Based on the above findings, I certify that this patient is confined to the home and needs intermittent intermediate care, physical therapy and/or speech therapy, or continues to need occupational therapy. The patient is under my care, and I have initiated the establishment of the plan of care. The patient will be followed by a physician who will periodically review the plan of care.
[2020-05-31] MEDS: Flu Vacc QS2020-21(6mos up)/PF 0.5 ML SYRINGE IM (11:31)
== END 2020-05-31 11:42 | disposition home health service (06) ==
LOC: HO.ED 22:50 → HO.EDOVER 05-30 01:07 → HO.S3 05-30 14:29
PROVIDERS: Physician Assistant; Admitting Provider Hospitalist; Emergency Provider Emergency Medicine Emergency Medical Services; Visit Provider Internal Medicine
DX: R42 Dizziness and giddiness (principal); N39.0 Urinary tract infection, site not specified; E11.65 Type 2 diabetes mellitus with hyperglycemia; E55.9 Vitamin D deficiency, unspecified; R11.2 Nausea with vomiting, unspecified; I10 Essential (primary) hypertension; H91.92 Unspecified hearing loss, left ear; Z23 Encounter for immunization; Z20.822 Contact with and (suspected) exposure to COVID-19; Z79.4 Long term (current) use of insulin; Z79.899 Other long term (current) drug therapy
CPT/HCPCS: 36415; 70496; 70498; 80048; 81001; 81003; 82947; 83605; 83735; 84484; 85025; 85610; 85730; 87040; 87086; 87635; 90471; 90686; 93005; 96361; 96365; 96375; 97162; 97166; 99218; 99285; J0696; J1200; J2930; Q9967

== ENCOUNTER 2021-01-26 15:25 | Outpatient (REF) | payer MEDICARE, MEDICAID, SELFPAY ==
--- NOTE | ~2021-01-26 | MM_ITS ---
EXAMINATION: MM SCREENING DIGITAL BREAST TOMOSYNTHESIS, BILATERAL CLINICAL INFORMATION: Screening. Asymptomatic. The lifetime risk of breast cancer based on the Tyrer-Cuzick Model is 7%. COMPARISON: Mammography: 12/06/2019, 09/15/2017 TECHNIQUE: Digital breast tomosynthesis is performed in both the craniocaudal and mediolateral oblique views along with computer-aided detection (CAD). Synthesized 2D images are generated from the tomosynthesis. Additional left CC view is provided. FINDINGS: There are scattered areas of fibroglandular density (ACR BI-RADS breast composition Category b). There are no significant masses, abnormal calcifications, or other abnormalities. Parenchymal pattern is similar to prior studies. No significant changes. MM/MM tomosynthesis screening BI IMPRESSION: No mammographic evidence of malignancy. ASSESSMENT: BI-RADS 1: Negative RECOMMENDATION: Routine annual mammography screening. This patient's information was entered into a reminder system with a target due date for their next mammogram.
== END 2021-01-26 15:26 | disposition home or self-care (01) ==
LOC: HO.MAMMO 15:25
PROVIDERS: PCP Nurse Practitioner Primary Care; Visit Provider Nurse Practitioner Primary Care
DX: Z12.31 Encounter for screening mammogram for malignant neoplasm of breast (principal)
CPT/HCPCS: 77063; 77067

== ENCOUNTER 2021-02-27 18:42 | Emergency (ER) | payer MEDICARE, MEDICAID, SELFPAY | END 2021-02-27 19:07 | disposition left against medical advice (07) | PROVIDERS: Emergency Provider Emergency Medicine | DX: R05.9 Cough, unspecified (principal) ==

== ENCOUNTER → 2021-06-17 08:53 | Outpatient (BNVA) | payer MEDICARE, MEDICAID, SELFPAY | PROVIDERS: PCP Nurse Practitioner Primary Care; Visit Provider Internal Medicine Endocrinology, Diabetes & Metabolism | DX: E11.65 Type 2 diabetes mellitus with hyperglycemia (principal); Z79.84 Long term (current) use of oral hypoglycemic drugs | CPT/HCPCS: 82947; 83036; 99202 ==

== ENCOUNTER → 2021-07-01 09:48 | Outpatient (BNVA) | payer MEDICARE, MEDICAID, SELFPAY | PROVIDERS: PCP Nurse Practitioner Primary Care; Visit Provider Dietitian, Registered | DX: E11.65 Type 2 diabetes mellitus with hyperglycemia (principal) | CPT/HCPCS: 97802 ==

== ENCOUNTER 2021-07-17 10:23 | Outpatient (REF) | payer MEDICARE, MEDICAID, SELFPAY ==
[2021-07-17 12:33] LABS: Anion Gap 13 (12-20); Blood Urea Nitrogen 8 mg/dL (9-16); Calcium 9.8 mg/dL (8.4-10.2); Carbon Dioxide 27 mmol/L (22-29); Chloride 102 mmol/L (96-108); Cholesterol 142 mg/dL; Estimated Glomerular Filt Rate > 60; Glucose Random 283 mg/dL (60-115); HDL Cholesterol 26 mg/dL; LDL Cholesterol Calculated 63 mg/dl; Potassium 3.7 mmol/L (3.3-5.1); Sodium 138 mmol/L (135-145); Triglycerides 268 mg/dL
[2021-07-17 12:42] LABS: Creatinine Urine 118.23 mg/dL
== END 2021-07-17 10:24 | disposition home or self-care (01) ==
LOC: HO.LAB 10:23
PROVIDERS: PCP Nurse Practitioner Primary Care; Visit Provider Internal Medicine Endocrinology, Diabetes & Metabolism
DX: E11.65 Type 2 diabetes mellitus with hyperglycemia (principal)
CPT/HCPCS: 36415; 80048; 80061; 82043

== ENCOUNTER → 2021-07-22 08:45 | Outpatient (BNVA) | payer MEDICARE, MEDICAID, SELFPAY | PROVIDERS: PCP Nurse Practitioner Primary Care; Visit Provider Registered Nurse Diabetes Educator | DX: E11.65 Type 2 diabetes mellitus with hyperglycemia (principal) | CPT/HCPCS: 99211 ==

== ENCOUNTER → 2021-09-17 08:47 | Outpatient (BNVA) | payer MEDICARE, MEDICAID, SELFPAY | PROVIDERS: PCP Nurse Practitioner Primary Care; Visit Provider Internal Medicine Endocrinology, Diabetes & Metabolism | DX: E11.65 Type 2 diabetes mellitus with hyperglycemia (principal) | CPT/HCPCS: 82947; 83036; 99212 ==

== ENCOUNTER → 2021-11-12 14:34 | Outpatient (BNVA) | payer MEDICARE, MEDICAID, SELFPAY | PROVIDERS: PCP Nurse Practitioner Primary Care; Visit Provider Registered Nurse Diabetes Educator | DX: E11.9 Type 2 diabetes mellitus without complications (principal) | CPT/HCPCS: 99211 ==

== ENCOUNTER → 2022-01-15 10:48 | Outpatient (BNVA) | payer MEDICARE, MEDICAID, SELFPAY | PROVIDERS: PCP Nurse Practitioner Primary Care; Visit Provider Internal Medicine Endocrinology, Diabetes & Metabolism | DX: E11.65 Type 2 diabetes mellitus with hyperglycemia (principal) | CPT/HCPCS: 82947; 83036; 99212 ==

== ENCOUNTER → 2022-02-10 10:14 | Outpatient (BNVA) | payer MEDICARE, MEDICAID, SELFPAY | PROVIDERS: PCP Nurse Practitioner Primary Care; Visit Provider Registered Nurse Diabetes Educator | DX: E11.65 Type 2 diabetes mellitus with hyperglycemia (principal) | CPT/HCPCS: 99211 ==

== ENCOUNTER → 2022-04-07 13:52 | Outpatient (BNVA) | payer MEDICARE, MEDICAID, SELFPAY | PROVIDERS: PCP Nurse Practitioner Primary Care; Visit Provider Registered Nurse Diabetes Educator | DX: E11.65 Type 2 diabetes mellitus with hyperglycemia (principal); I10 Essential (primary) hypertension; E55.9 Vitamin D deficiency, unspecified; Z87.891 Personal history of nicotine dependence | CPT/HCPCS: 99211 ==

== ENCOUNTER 2022-08-22 14:34 | Emergency (ER) | payer MEDICARE, MEDICAID, SELFPAY ==
--- NOTE | ~2022-08-22 | US_ITS ---
EXAMINATION: US PELVIS CLINICAL INFORMATION: Vaginal bleeding. History of cervical cancer. COMPARISON: Previous CT of the abdomen and pelvis March 2015 and pelvic ultrasound September 2013 TECHNIQUE: Ultrasound of the pelvis is performed using both transabdominal and transvaginal transducers along with Doppler. Transvaginal imaging is performed due to inadequate visualization transabdominally. Exam is very limited due to patient body habitus and position of the uterus. FINDINGS: Exam is extremely limited due to body habitus. There is question of identification of a retroverted and retroflexed uterus measuring 6.8 x 4.1 x 4.2 cm in length. Endometrial thickness measures 0.8 cm. No focal uterine lesion is appreciated by ultrasound. The ovaries are not seen. There is no fluid in the pelvis. US/US pelvic and transvaginal IMPRESSION: Very limited exam. Question retroverted retroflexed uterus and slightly thickened endometrium.
--- NOTE | ~2022-08-22 | CT_ITS ---
EXAMINATION: CT ABDOMEN AND PELVIS WITHOUT CONTRAST CLINICAL INFORMATION: Abdominal pain. Hematuria. COMPARISON: 04/09/2015 TECHNIQUE: Multidetector volumetric imaging was performed from the superior aspect of the liver through the pubic symphysis. Sagittal and coronal reformatted images were obtained on the technologist's workstation. This CT examination was performed using dose optimization techniques as appropriate, variously including the following: *Automated exposure control *Adjustment of mA and/or kV according to patient size (this includes techniques or standardized protocols for targeted exams where dose is matched to indication/reason for exam; i.e. extremities or head) *Use of iterative reconstruction technique DLP: 551 mGy-cm FINDINGS: LUNG BASES: Bronchial wall thickening present. Mosaic attenuation likely related to air trapping in the setting of small airway inflammation. LIVER, GALLBLADDER, AND BILIARY TREE: The liver is normal in size, shape, and attenuation. No focal hepatic lesion or biliary ductal dilatation is present. The gallbladder is unremarkable with no evidence of radiopaque gallstones, gallbladder wall thickening, or obvious pericholecystic inflammatory changes. PANCREAS: Unremarkable. SPLEEN: Unremarkable. ADRENAL GLANDS: Unremarkable. KIDNEYS AND URETERS: The kidneys are normal in size, shape, and attenuation. There is a 1.4 x 0.4 x 0.4 cm stone in the lower pole of the right kidney. Mild bilateral pelvocaliectasis, slightly worse on the right with accompanying right hydroureter leading up to a normal appearing ileal conduit in the left lower quadrant. No ureteral calculi. No perinephric abnormalities. BLADDER: Surgically absent. GASTROINTESTINAL TRACT: Right hemicolectomy with right lower quadrant end colostomy. No bowel obstruction or inflammation. ABDOMINAL WALL: Associated small fat-containing parastomal hernia associated with the right lower quadrant colostomy. Associated fat and small bowel containing parastomal hernia associated with the left lower quadrant urostomy. LYMPH NODES: Normal. VASCULAR: Unremarkable. PELVIC VISCERA: Hysterectomy. Extensive scar tissue within the deep pelvis and chronic stranding in the presacral and deep pelvic fat. OSSEOUS STRUCTURES: No acute or suspicious osseous abnormalities. Chronic degenerative change at L5-S1 with accompanying degenerative ankylosis. CT/CT abdomen pelvis wo IV con IMPRESSION: * Nonobstructive 1.4 cm stone in the lower pole of the right kidney. * Mild bilateral pelvocaliectasis, slightly worse on the right with accompanying right hydroureter leading up to a normal appearing ileal conduit in the left lower quadrant. * Right hemicolectomy with right lower quadrant end colostomy. * Left lower quadrant urostomy with associated fat and small bowel containing parastomal hernia.
--- NOTE | 2022-08-22 14:42 | ED_ITS ---
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 Uses 1 pad per day. Having lower abdominal pain with this. Patient reports 25 yrs ago she had cervical cancer which sounds like it was treated with a LEEP procedure. Patient denies any need for hysterectomy. She had subsequent radiation after. Patient reports this was performed at a hospital in [place] but she does not know the hospital name or the surgeon name. Per patient she had postoperative radiation scarring requiring a bowel obstru ction with subsequent ileostomy placement (?fistula), also required urostomy (?bladder stones). Patient reports that she has not had a period for 25 years until 2 months ago when she developed vaginal bleeding. Patient reports she had been followed by a real estate associate attorney in [place] but she has not seen them in 2 years. She is unsure when her last Pap smear was. She also noted this morning that when she emptied her urostomy that she had some hematuria. She denies any fevers, chills, urinary symptoms, vomiting. She does report that the vaginal discharge is bloody and has a bad odor. The patient is a difficult historian. We were able to use her daughter and the asphalt heater operator to obtain most of the history above but it is limited. Related Data Home Medications Medication Instructions Recorded Confirmed allopurinol 100 mg tablet 100 mg PO DAILY 05/29/20 08/22/22 aspirin 81 mg tablet,delayed 81 mg PO DAILY 05/29/20 08/22/22 release atorvastatin 40 mg tablet 40 mg PO BEDTIME 05/29/20 08/22/22 citalopram 20 mg tablet 20 mg PO DAILY 05/29/20 08/22/22 amlodipine 10 mg tablet 10 mg PO DAILY 06/17/21 08/22/22 irbesartan 150 mg tablet 150 mg PO DAILY 06/17/21 08/22/22 pen needle, diabetic 32 gauge x #50 ea 06/17/21 06/17/21 5/32 (UltiCare Pen Needle) lancets 33 gauge (TRUEplus Lancets) #100 ea 09/17/21 multivitamin-ferrous 1 tab PO DAILY 09/17/21 08/22/22 fumarate-folic acid 18 mg-400 mcg tablet (Certavite-Antioxidant) omega-3 fatty acids-fish oil 340 1 cap PO DAILY 09/17/21 08/22/22 mg-1,000 mg capsule (Fish Oil) sulfamethoxazole 800 1 tab PO BID 08/22/22 08/22/22 mg-trimethoprim 160 mg tablet Previous Rx's Medication Instructions Recorded cholecalciferol (vitamin D3) 50 50 mcg PO QAM 30 days #30 caps 08/27/20 mcg (2,000 unit) capsule blood sugar diagnostic (FreeStyle #150 ea 04/06/21 Lite Strips) insulin degludec 100 unit/mL (3 20 unit (0.2 mL) subcut BEDTIME 09/14/21 mL) subcutaneous pen (Tresiba #15 mL FlexTouch U-100 insulin) dulaglutide 4.5 mg/0.5 mL 4.5 mg (0.5 mL) subcut QWEEK #2 mL 01/15/22 subcutaneous pen injector (Trulicity) metformin 1,000 mg tablet 1,000 mg PO BIDWMEAL #180 tabs 07/12/22 cefuroxime axetil 250 mg tablet 250 mg PO BID 7 days #14 tabs 08/22/22 Allergies Allergy/AdvReac Type Severity Reaction Status Date / Time No Known Allergies Allergy Verified 09/17/21 09:02 [No Known Allergies*] Review of Systems Review of Systems: Yes all other systems are reviewed and are negative Constitutional: Constitutional: Reports no additional constitutional complaints, Denies body ache(s), Denies chills, Denies fever(s), Denies headache(s) and Denies weakness Eyes: Eyes: Reports no additional eye complaints and Denies change in vision ENT: Reports system reviewed and no additional complaints, except as documented, Denies dizziness, Denies headache(s), Denies nasal congestion, Denies nasal discharge and Denies neck pain Cardiovascular: Cardiovascular: Reports no additional cardiovascular complaints, Denies chest pain, Denies leg edema and Denies dyspnea Respiratory: Respiratory: Reports no additional respiratory complaints, Denies cough and Denies dyspnea Gastrointestinal: Gastrointestinal: Reports no additional gastrointestinal complaints, Reports abdominal pain, Denies diarrhea, Denies nausea and Denies vomiting Genitourinary: Genitourinary: Reports no additional female genitourinary complaints, Reports abnormal vaginal bleeding and Denies urinary incontinence Musculoskeletal: Musculoskeletal: Reports no additional musculoskeletal complaints, Denies back pain, Denies arthralgias, Denies joint swelling, Denies neck pain, Denies numbness and Denies tingling Integumentary/Breasts: Skin/Breast: Reports system reviewed and no additional complaints, except as docu and Denies rash Neurologic: Reports system reviewed and no additional complaints, except as do cumented, Denies dizziness, Denies headache(s), Denies numbness, Denies tingling and Denies weakness PMF Past Medical History Attestation statement: The following information was validated with the patient. Source: old records reviewed and nursing notes reviewed Medical History Diabetes type 2, uncontrolled HTN (hypertension) Vitamin D deficiency Surgical History H/O cystoscopy History of surgery History of urostomy Hx of colostomy S/P cystourethroscopy with dilation of urethral stricture Social History Social History Household Members: Children Alcohol intake: never Patient Tobacco Use Status: Former Tobacco user Quit Date: Over 25 years ago Smoked in Last 30 Days: No Second Hand Smoke Exposure: No Use of substances other than those prescribed or required for medical reasons: No Advance Directives: No Advance Directives Information Provided: Yes service: No Current occupational status: unemployed Physical Exam ED Vital Signs: Vital Signs - 24 hr 08/22/22 14:43 08/22/22 18:18 Temperature 98.2 F 98.1 F Pulse Rate 82 65 Respiratory Rate 16 16 Blood Pressure 145/69 H 120/62 Pulse Oximetry 97 95 Oxygen Delivery Method Room Air Room Air BMI result Body Mass Index 29.2 Const General: cooperative, healthy appearing, comfortable and no acute distress Orientation/consciousness: patient oriented x3 Limitations: no limitations HENMT Head: Yes normal to inspection Ears: hearing grossly normal bilaterally Eyes General: appearance normal, both eyes and all related structures Pupils: Equal, round and reactive pupils present Neck Neck: Yes normal visual inspection and Yes full ROM Chest Chest palpation & inspection: normal inspection of the chest Resp Effort & Inspection: normal respiratory effort Auscultation: clear to auscultation bilaterally Cardio Rate: regular rate Rhythm: regular rhythm Peripheral pulses: Peripheral pulses 2+ throughout GI Other: RLQ ileostomy bag present, LLQ urostomy bag present Palpation (GI): Tenderness to palpation present (GI) (Mild TTP LLQ) with no rebound tenderness and no guarding Auscultation: normal bowel sounds 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 The posterior clay have large amounts of black granulated tissues which are friable w/purulent serosanguineous drainage Back/Spine/Pelvis Thoracic/Lumbar Spine: thoracic and lumbar spine normal to inspection Skin General skin exam: no rashes or lesions noted Neuro General: patient oriented x3 and moves all extremities Cranial nerves: Yes Equal, round and reactive pupils present Cognition (Neuro): normal cognition Gait exam (Neuro): Normal gait present Extrem General: Yes normal to inspection Course Course Course Narrative: RME performed by Janae Corrales PA-C. Patient is a 67 year old assigned fema le at presenting to the emergency department with vaginal bleeding. Labs ordered. Patient placed back in the waiting room pending room availability and results. Reevaluation(s) Reevaluation #1: [id number]-Sign out to Rachelle GERARDO pending CT, pelvic US, UA Reevaluation #2: Went to go evaluate patient myself and she tells me she is having lower abdominal pain, difficulties with urination. CT of the abdomen and pelvis with a nonobstructive 1.4 cm stone in the lower pole the right kidney. Mild bilateral pelvocaliectasis slightly worse on the right with accompanying right hydroureter leading up to a normal-appearing ileal conduit right lower quadrant. Will have her follow with urology. Ultrasound with a retroverted retroflexed uterus and slightly thickened endometrium. Time: 19:22 Reevaluation #3: Has not had vaginal bleeding while the department she tells me. H&H stable Still having some discomfort however improved will have her follow-up with Urology, OBGYN. Will send her home on Ceftin for UTI sx. Educated patient on diagnosis and treatment plan, answered all question, patient verbalizes understanding. At this time patient will be discharged home, advised to return with new or worsening symptoms. Educated on worrisome signs and symptoms and when to return. At this time I feel comfortable discharge home. Time: 20:21 Medications Administered Generic Name Dose Route Start Last Admin Trade Name [place] PRN Reason Stop Dose Admin Sodium Chloride 1,000 mls @ 999 mls/hr 08/22/22 19:30 08/22/22 19:39 Ns IV 08/22/22 20:30 999 mls/hr .Q1H1M JERRELL Administration Discontinued Medications Generic Name Dose Route Start Last Admin Trade Name Freq PRN Reason Stop Dose Admin Lorazepam 1 mg 08/22/22 15:32 08/22/22 15:43 Lorazepam 2 Mg/Ml Vial IVPUSH 08/22/22 15:33 1 mg ONCE ONE Administration Morphine Sulfate 4 mg 08/22/22 15:32 08/22/22 15:43 Morphine Sulfate 4 Mg/Ml Cartridge IVPUSH 08/22/22 15:33 4 mg ONCE ONE Administration Protocol Ondansetron HCl 4 mg 08/22/22 15:32 08/22/22 15:43 Ondansetron Hcl 4 Mg/2 Ml Vial IVPUSH 08/22/22 15:33 4 mg ONCE ONE Administration Tamsulosin HCl 0.4 mg 08/22/22 19:22 08/22/22 19:39 Tamsulosin Hcl 0.4 Mg Capsule PO 08/22/22 19:23 0.4 mg ONCE ONE Administration Medical Decision Making Medical Decision Making MDM Narrative: 67 yo female with history of LEEP (25 yrs ago) for cervical cancer and radiation (done at [facility] in [place], unknown physician), subsequent radiation complication (?fistula) with urostomy and ileostomy placement here with complaints of now 2 months of post-menopausal bleeding with lower abdominal pain, ?hematuria noted from her urostomy bag. Patient not a good historian On arrival HD stable Mild TTP to left lower abdomen with no rebound or guarding Will need labs, UA, CT A/P, pelvic US. Differential Diagnosis Differential Diagnoses: The differential diagnosis associated with the presentation includes fistula, divert, malignancy Lab Data [facility] Lab Attestation statement: I reviewed the patient's lab results. 08/22/22 14:53 08/22/22 14:53 Labs: Lab Results 08/22/22 08/22/22 08/22/22 Range/Units 14:53 14:53 15:39 WBC 6.5 (4.8-10.8) X10*3/uL RBC 4.83 (4.20-5.50) X10*6/uL Hgb 12.8 (12.0-16.0) g/dl Hct 39.9 (37.0-47.0) % MCV 82.6 (80.0-98.0) fL MCH 26.5 L (27.0-33.0) pg MCHC 32.1 (31.0-35.0) g/dl RDW 12.8 (11.0-16.0) % Plt Count 214 (160-400) X10*3/uL MPV 10.6 (9.4-12.3) fL Immature Gran % (Auto) 0.3 (0.0-0.4) % Neut % (Auto) 59.1 (45-73) % Lymph % (Auto) 31.2 (20-40) % [place] % (Auto) 6.2 (2-11) % Eos % (Auto) 2.6 (0-4) % Baso % (Auto) 0.6 (0-2) % Lymph # (Auto) 2.0 (1.2-4.9) X10*3/uL [place] # (Auto) 0.4 (0.1-1.2) X10*3/uL Eos # (Auto) 0.2 (0.0-0.4) X10*3/uL Baso # (Auto) 0.0 (0.0-0.2) X10*3/uL Abs Immat Gran (auto) 0.02 (0.00-0.03) X10*3/uL Absolute Neuts (auto) 3.8 (2.0-8.3) x10*3/uL Absolute Nucleated RBC 0.000 (0.0-0.012) X10*3/uL Nucleated RBC % (auto) 0.0 (0.0-0.2) /100WBC PT 12.3 (10.0-13.1) SEC INR 1.1 (0.9-1.1) Sodium 139 (135-145) mmol/L Potassium 4.7 D (3.3-5.1) mmol/L Chloride 105 (96-108) mmol/L Carbon Dioxide 23 (22-29) mmol/L Anion Gap 16 (12-20) BUN 11 (9-16) mg/dL Creatinine 1.07 (0.5-1.4) mg/dL Estim Creat Clear Calc 51.3 Estimated GFR 51 Random Glucose 264 H (60-115) mg/dL Calcium 10.7 H D (8.4-10.2) mg/dL Total Bilirubin 0.7 (0.0-1.0) mg/dL AST 17 (5-31) U/L ALT 13 (0-31) U/L Alkaline Phosphatase 84 (39-117) U/L Total Protein 7.3 (6.5-8.0) g/dL Albumin 4.1 (3.5-5.0) g/dL Urine Color Urine Appearance Urine pH (5.0-9.0) Ur Specific [place] (1.005-1.025) Urine Protein (Neg-Trace) mg/dL Urine Glucose (UA) (Negative) mg/dL Urine Ketones (Negative) mg/dL Urine Blood (Negative) Urine Nitrite (Negative) Ur Leukocyte Esterase (Negative) Urine RBC (0-2) /HPF Urine WBC (0-5) /HPF Ur Squamous Epith Cells (0-2) /HPF Urine Bacteria (None Seen) Hyaline Casts (0-2) /LPF 08/22/22 08/22/22 Range/Units 18:42 19:49 WBC 7.9 (4.8-10.8) X10*3/uL RBC 4.54 (4.20-5.50) X10*6/uL Hgb 12.3 (12.0-16.0) g/dl Hct 38.6 (37.0-47.0) % MCV 85.0 (80.0-98.0) fL MCH 27.1 (27.0-33.0) pg MCHC 31.9 (31.0-35.0) g/dl RDW 12.8 (11.0-16.0) % Plt Count 236 (160-400) X10*3/uL MPV 10.7 (9.4-12.3) fL Immature Gran % (Auto) 0.4 (0.0-0.4) % Neut % (Auto) 57.8 (45-73) % Lymph % (Auto) 32.5 (20-40) % [place] % (Auto) 6.2 (2-11) % Eos % (Auto) 2.5 (0-4) % Baso % (Auto) 0.6 (0-2) % Lymph # (Auto) 2.6 (1.2-4.9) X10*3/uL [place] # (Auto) 0.5 (0.1-1.2) X10*3/uL Eos # (Auto) 0.2 (0.0-0.4) X10*3/uL Baso # (Auto) 0.1 (0.0-0.2) X10*3/uL Abs Immat Gran (auto) 0.03 (0.00-0.03) X10*3/uL Absolute Neuts (auto) 4.6 (2.0-8.3) x10*3/uL Absolute Nucleated RBC 0.000 (0.0-0.012) X10*3/uL Nucleated RBC % (auto) 0.0 (0.0-0.2) /100WBC PT (10.0-13.1) SEC INR (0.9-1.1) Sodium (135-145) mmol/L Potassium (3.3-5.1) mmol/L Chloride (96-108) mmol/L Carbon Dioxide (22-29) mmol/L Anion Gap (12-20) BUN (9-16) mg/dL Creatinine (0.5-1.4) mg/dL Estim Creat Clear Calc Estimated GFR Random Glucose (60-115) mg/dL Calcium (8.4-10.2) mg/dL Total Bilirubin (0.0-1.0) mg/dL AST (5-31) U/L ALT (0-31) U/L Alkaline Phosphatase (39-117) U/L Total Protein (6.5-8.0) g/dL Albumin (3.5-5.0) g/dL Urine Color Yellow Urine Appearance Cloudy Urine pH 6.5 (5.0-9.0) Ur Specific [place] 1.015 (1.005-1.025) Urine Protein 30 (1+) H (Neg-Trace) mg/dL Urine Glucose (UA) Negative (Negative) mg/dL Urine Ketones Negative (Negative) mg/dL Urine Blood Large (3+) H (Negative) Urine Nitrite Negative (Negative) Ur Leukocyte Esterase Trace H (Negative) Urine RBC >20 H (0-2) /HPF Urine WBC 11-20 H (0-5) /HPF Ur Squamous Epith Cells 6-10 (0-2) /HPF Urine Bacteria None Seen (None Seen) Hyaline Casts 11-20 (0-2) /LPF Independent Interpretation I performed an independent interpretation of an: Ultrasound and CT Scan Radiology Impression Discussion of test interpretation with radiology: I have reviewed the radiol ogist's reading. Critical Care Time Critical Care Time Critical Care Time: No Discharge Plan Discharge Clinical Impression: Abnormal vaginal bleeding, Kidney stone, Cystitis Patient Disposition: Home, Self-Care Instructions: Dysfunctional Uterine Bleeding (ED), Kidney Stones (ED), Urinary Tract Infection in Older Adults (ED) Additional Instructions: Take your medications as prescribed. If you were prescribed antibiotics today, it is important that you take your medication to their entirety, do not skip any doses, do not finish them early. Follow-up with your primary care provider this week. Return to the emergency department with new or worsening symptoms. Such as fevers, chills, chest pain, shortness of breath, nausea, vomiting, dizziness, headache, vision changes, lethargy In case of emergency call 911 Please follow-up with OBGYN due to vaginal bleeding. Return if your bleeding through more than 2 pads per hour having lightheadedness, fevers, chills or worsening pain. ?CT/CT abdomen pelvis wo IV con IMPRESSION: *? Nonobstructive 1.4 cm stone in the lower pole of the right kidney. *? Mild bilateral pelvocaliectasis, slightly worse on the right with accompanying right hydroureter leading up to a normal appearing ileal conduit in the left lower quadrant. *? Right hemicolectomy with right lower quadrant end colostomy. *? Left lower quadrant urostomy with associated fat and small bowel containing parastomal hernia. ? ?US/US pelvic and transvaginal IMPRESSION: Very limited exam. Question retroverted retroflexed uterus and slightly thickened endometrium. Prescriptions: New cefuroxime axetil 250 mg tablet 250 mg PO BID 7 Days Qty: 14 0RF No Action cholecalciferol (vitamin D3) 50 mcg (2,000 unit) capsule 50 mcg PO QAM 30 Days Qty: 30 2RF (DME) FreeStyle Lite Strips Strip See Rx Instructions .Route Qty: 150 11RF Rx Instructions: As directed test blood sugar four times daily Tresiba FlexTouch U-100 100 unit/mL (3 mL) insulin pen 20 unit subcut BEDTIME Qty: 15 5RF metformin 1,000 mg tablet 1,000 mg PO BIDWMEAL Qty: 180 2RF atorvastatin 40 mg Tablet 40 mg PO BEDTIME allopurinol 100 mg Tablet 100 mg PO DAILY aspirin 81 mg Tablet,Delayed Release (Dr/Ec) 81 mg PO DAILY citalopram 20 mg Tablet 20 mg PO DAILY sulfamethoxazole-trimethoprim 800-160 mg tablet 1 tab PO BID irbesartan 150 mg tablet 150 mg PO DAILY amlodipine 10 mg tablet 10 mg PO DAILY (DME) pen needle, diabetic [UltiCare Pen Needle] 32 gauge x 5/32 needle See Rx Instructions .ROUTE .MEDSUPPLY Qty: 50 Rx Instructions: As directed Fish Oil 340-1,000 mg capsule 1 cap PO DAILY (DME) lancets [TRUEplus Lancets] 33 gauge misc See Rx Instructions Not Applicable QID Qty: 100 Rx Instructions: As directed Certavite-Antioxidant 18-400 mg-mcg tablet 1 tab PO DAILY Trulicity 4.5 mg/0.5 mL pen injector 4.5 mg subcut QWEEK Qty: 2 5RF Patient Comments: TUESDAY Referrals: [facility] [place] [facility] [Provider Group] - 2 days Bibi Hernandez NP [Primary Care Provider] - 2 days Denver Murphy MD [Physician] - 2 days
[2022-08-22 14:43] VITALS: BP 145/69; PULSE 82; RESP 16; TEMP 36.8; O2SAT 97; BMI 29.2
[2022-08-22 14:57] LABS: Basophils Percent Auto 0.6 % (0-2); Eosinophils Absolute Auto 0.2 X10*3/uL (0.0-0.4); Eosinophils Percent Auto 2.6 % (0-4); Hematocrit 39.9 % (37.0-47.0); Hemoglobin 12.8 g/dl (12.0-16.0); Imm Gran Abs Auto 0.02 X10*3/uL (0.00-0.03); Imm Gran Pct Auto 0.3 % (0.0-0.4); Lymphocytes Percent Auto 31.2 % (20-40); MANUAL DIFF FLAG NO; Mean Corpuscular HGB Conc 32.1 g/dl (31.0-35.0); Mean Corpuscular Hemoglobin 26.5 pg (27.0-33.0); Mean Corpuscular Volume 82.6 fL (80.0-98.0); Mean Platelet Volume 10.6 fL (9.4-12.3); Monocytes Absolute Auto 0.4 X10*3/uL (0.1-1.2); Monocytes Percent Auto 6.2 % (2-11); Neutrophils Absolute Auto 3.8 x10*3/uL (2.0-8.3); Neutrophils Percent Auto 59.1 % (45-73); Platelet Count 214 X10*3/uL (160-400); Red Blood Count 4.83 X10*6/uL (4.20-5.50); Red Cell Distribution Width 12.8 % (11.0-16.0); White Blood Count 6.5 X10*3/uL (4.8-10.8)
[2022-08-22 15:17] LABS: Alanine Aminotransferase 13 U/L (0-31); Albumin Level 4.1 g/dL (3.5-5.0); Alkaline Phosphatase 84 U/L (39-117); Anion Gap 16 (12-20); Aspartate Amino Transferase 17 U/L (5-31); Bilirubin Total 0.7 mg/dL (0.0-1.0); Blood Urea Nitrogen 11 mg/dL (9-16); Calcium 10.7 mg/dL (8.4-10.2); Carbon Dioxide 23 mmol/L (22-29); Chloride 105 mmol/L (96-108); Creatinine Clr Calc Pharmacy 51.3; Estimated Glomerular Filt Rate 51; Glucose Random 264 mg/dL (60-115); Potassium 4.7 mmol/L (3.3-5.1); Sodium 139 mmol/L (135-145); Total Protein 7.3 g/dL (6.5-8.0)
[2022-08-22] MEDS: LORazepam 2 MG/ML VIAL 1 MG IVPUSH (15:43)
[2022-08-22] MEDS: Morphine Sulfate 4 MG/ML CARTRIDGE IVPUSH (15:43)
[2022-08-22] MEDS: ondansetron HCL 4 MG/2 ML VIAL IVPUSH (15:43)
[2022-08-22 16:02] LABS: INTERNATIONAL NORM RATIO 1.1 (0.9-1.1); Prothrombin Time 12.3 SEC (10.0-13.1)
--- NOTE | 2022-08-22 18:17 | PHA.MEDREC ---
Pharmacy Consult ? Medication Reconciliation Pharmacy has completed the medication reconciliation. pT TAKES TRULICITY ON TUESDAY
[2022-08-22 18:18] VITALS: BP 120/62; PULSE 65; RESP 16; TEMP 36.7; O2SAT 95
[2022-08-22 18:47] LABS: MANUAL DIFF FLAG NO
[2022-08-22 18:48] LABS: Basophils Absolute Auto 0.1 X10*3/uL (0.0-0.2); Basophils Percent Auto 0.6 % (0-2); Eosinophils Absolute Auto 0.2 X10*3/uL (0.0-0.4); Eosinophils Percent Auto 2.5 % (0-4); Hematocrit 38.6 % (37.0-47.0); Hemoglobin 12.3 g/dl (12.0-16.0); Imm Gran Abs Auto 0.03 X10*3/uL (0.00-0.03); Imm Gran Pct Auto 0.4 % (0.0-0.4); Lymphocytes Absolute Auto 2.6 X10*3/uL (1.2-4.9); Lymphocytes Percent Auto 32.5 % (20-40); Mean Corpuscular HGB Conc 31.9 g/dl (31.0-35.0); Mean Corpuscular Hemoglobin 27.1 pg (27.0-33.0); Mean Platelet Volume 10.7 fL (9.4-12.3); Monocytes Absolute Auto 0.5 X10*3/uL (0.1-1.2); Monocytes Percent Auto 6.2 % (2-11); Neutrophils Absolute Auto 4.6 x10*3/uL (2.0-8.3); Neutrophils Percent Auto 57.8 % (45-73); Platelet Count 236 X10*3/uL (160-400); Red Blood Count 4.54 X10*6/uL (4.20-5.50); Red Cell Distribution Width 12.8 % (11.0-16.0); White Blood Count 7.9 X10*3/uL (4.8-10.8)
[2022-08-22] MEDS: Tamsulosin HCL 0.4 MG CAPSULE PO (19:39)
[2022-08-22] MEDS: 0.9 % Sodium Chloride 1,000 ML 999 ML IV (19:39)
[2022-08-22 19:57] LABS: Appearance Urine Cloudy; Color Urine Yellow; Glucose Urine UA Negative (Negative); Leukocyte Esterase Urine Trace (Negative); Nitrite Urine Negative (Negative); PH 6.5 (5.0-9.0); Specific Gravity - Urine 1.015 (1.005-1.025); UMIC TRIGGER UACC YES; Urine Blood Large (3+) (Negative); Urine Ketones Negative (Negative); Urine Protein 30 (1+) mg/dL (Neg-Trace)
[2022-08-22 20:22] LABS: Bacteria Urine None Seen (None Seen); RBC Urine >20 /HPF (0-2); UACC Culture Trigger YES
== END 2022-08-22 20:54 | disposition home or self-care (01) ==
PROVIDERS: Nurse Practitioner Family; Physician Assistant; Physician Assistant Medical; Emergency Provider Emergency Medicine; PCP Nurse Practitioner Primary Care
DX: N93.9 Abnormal uterine and vaginal bleeding, unspecified (principal); N20.0 Calculus of kidney; R30.0 Dysuria; N30.90 Cystitis, unspecified without hematuria; R10.2 Pelvic and perineal pain; Z79.899 Other long term (current) drug therapy; Z87.891 Personal history of nicotine dependence
CPT/HCPCS: 36415; 51702; 74176; 76830; 76856; 80053; 81001; 85025; 85610; 87086; 96361; 96374; 96375; 99284; J2060; J2270; J2405

== ENCOUNTER 2022-11-02 13:02 | Outpatient (AMB) | payer MEDICARE, MEDICAID, SELFPAY ==
[2022-11-02 13:08] VITALS: BP 118/64; PULSE 79; O2SAT 96; BMI 29.3
--- NOTE | 2022-11-02 13:08 | MHC.OFFVIS ---
Intake Vital Signs 11/02/22 13:08 Height 5 ft 4 in Weight 170 lb 13.732 oz BMI 29.3 BP 118/64 Blood Pressure Location Lt brachial Position Sitting Pulse 79 Pulse Source Pulse Oximeter Pulse Oximetry (%) 96 Oxygen Delivery Method Room Air Intake Visit Reasons: T2DM Intake Note: Patient present today to follow up on Type 2 Diabetes Mellitus. 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 Initially diagnosed with T2DM in 25 yrs ago . Was initially started on treatment with not sure . Current regimen metformin 1000 mg b.i.d. Trulcity 3 mg Qwkly Lantus 25 units Checks sugars 1 times per day. Average sugar: 198 Range: -155-229 Reports low sugars None . Complains of numbness in her 2nd to 4th digit both hands. Also complains of occasional episodes of dizziness Most recent A1C 6.9 Family history of T2DM in granfathers Type 2 DM . Has eyes checked yearly, last eye exam 5-6 mos ago , denies retinopathy. had cataract surgery Has neuropathy, does not sees podiatry. has nephropathy, on ARB. UAC as measured on . Has HLD, on statin. Denies CAD. Received and will start [facility] diabetes education. [facility] Medical History Diabetes type 2, uncontrolled HTN (hypertension) Vitamin D deficiency Surgical History H/O cystoscopy History of surgery History of urostomy Hx of colostomy S/P cystourethroscopy with dilation of urethral stricture Social History Household Members: Children Alcohol intake: never Patient Tobacco Use Status: Former Tobacco user Quit Date: Over 25 years ago Second Hand Smoke Exposure: No service: No Current occupational status: unemployed Physical Exam Vital Signs: Last Vital Signs Pulse 79 11/02/22 13:08 BP 118/64 11/02/22 13:08 Pulse Ox 96 11/02/22 13:08 Oxygen Delivery Method Room Air 11/02/22 13:08 BMI result Body Mass Index 29.3 Absence of Cushingoid features. Absence of acromegalic features. Neck exam reveals nl size thyroid about 15 gms. No thyroid nodules palpable. No carotid bruits present. Lungs CTA. Heart S1 S2, Reg R/R. No M/R/ G. Skin exam reveals absence of vitiligo or acanthosis nigricans. Abdominal exam reveals Soft NT/ND with NA BS. No organomegaly present. Neck Other: . Extrem Other: Visual exam of foot performed. No ulcerations or open lesions. No onchomycosis, no callouses.Pulses 2 + distally Sensation intact to monofilament exam. Vibratory sensation sensed is intact with 128 Hz tuning fork Results AMB Hemoglobin A1c AMB Hemoglobin A1c 8.4 % Last Edit by Janny Johnson MA on 11/02/22 13:29 Assessment & Plan Assessment & Plan (1) Diabetes type 2, uncontrolled: Code(s): E11.65 - Type 2 diabetes mellitus with hyperglycemia Plan: This is a 67-year-old female with a history of type 2 diabetes being treated with metformin, Trulicity and basal insulin with improving excellent glycemic control and known microvascular complications namely neuropathy and macro albuminuria. Plan is . Reinitiate Yohannes. Cannot make any changes to her regimen as there is limited data. . Orders: Orders AMB Hemoglobin A1c Today Z13.9 - Encounter for screening, unspecified Coding Level of Care Code Est Pt Level 3 (09978) Diagnoses Diabetes type 2, uncontrolled E11.65
[2022-11-02 13:22] LABS: Glucose, Whole Blood 162 mg/dL (60-115)
== END 2022-11-02 13:38 | disposition home or self-care (01) ==
PROVIDERS: PCP Nurse Practitioner Primary Care; Visit Provider Internal Medicine Endocrinology, Diabetes & Metabolism
DX: Z13.9 Encounter for screening, unspecified (principal); E11.65 Type 2 diabetes mellitus with hyperglycemia
CPT/HCPCS: 99213

== ENCOUNTER → 2022-11-02 13:02 | Outpatient (BNVA) | payer MEDICARE, MEDICAID, SELFPAY | PROVIDERS: PCP Nurse Practitioner Primary Care; Visit Provider Internal Medicine Endocrinology, Diabetes & Metabolism | DX: E11.40 Type 2 diabetes mellitus with diabetic neuropathy, unspecified (principal); E11.21 Type 2 diabetes mellitus with diabetic nephropathy; E78.5 Hyperlipidemia, unspecified; E55.9 Vitamin D deficiency, unspecified; Z79.85 Long-term (current) use of injectable non-insulin antidiabetic drugs; R20.0 Anesthesia of skin; R42 Dizziness and giddiness; Z79.4 Long term (current) use of insulin; Z79.84 Long term (current) use of oral hypoglycemic drugs; Z96.41 Presence of insulin pump (external) (internal) | CPT/HCPCS: 82947; 83036; 99211; 99212 ==

== ENCOUNTER 2022-11-02 13:37 | Outpatient (AMB) | payer MEDICARE, MEDICAID, SELFPAY ==
--- NOTE | 2022-11-02 13:39 | A.OFFVIS_ITS ---
Intake Intake Visit Reasons: DM Cardiology Rn Required: Yes Cardiology Rn Language: Service Desk Manager Name: Jocelin [facility] [place] Information Interpreted: non-clinical & clinical Accompanied by: Daughter Allergies No Known Allergies [No Known Allergies*] Allergy (Verified 11/02/22 13:14) [facility] Comprehensive Diabetes Asmnt Most Recent Diabetes Results: Creatinine 1.07 mg/dL (0.5-1.4) 08/22/22 Blood Urea Nitrogen 11 mg/dL (9-16) 08/22/22 Sodium 139 mmol/L (135-145) 08/22/22 Potassium 4.7 mmol/L (3.3-5.1) 08/22/22 Chloride 105 mmol/L (96-108) 08/22/22 Carbon Dioxide 23 mmol/L (22-29) 08/22/22 Calcium 10.7 mg/dL (8.4-10.2) H 08/22/22 AST 17 U/L (5-31) 08/22/22 ALT 13 U/L (0-31) 08/22/22 Total Protein 7.3 g/dL (6.5-8.0) 08/22/22 Albumin 4.1 g/dL (3.5-5.0) 08/22/22 PFSH Medical History Diabetes type 2, uncontrolled HTN (hypertension) Vitamin D deficiency Surgical History H/O cystoscopy History of surgery History of urostomy Hx of colostomy S/P cystourethroscopy with dilation of urethral stricture Social History Household Members: Children Alcohol intake: never Patient Tobacco Use Status: Former Tobacco user Quit Date: Over 25 years ago Second Hand Smoke Exposure: No service: No Current occupational status: unemployed Assessment & Plan Assessment & Plan (1) Diabetes type 2, uncontrolled: Code(s): E11.65 - Type 2 diabetes mellitus with hyperglycemia Plan: CGM Info Instructed Pt on what CGM can and can't do CGM Can: Give Pt minute by minute reading of glucose levels Displays glucose trend arrows that represents the direction glucose levels are fluctuating Give insight on decisions about how to dose insulin CGM cannot: Improve glucose control on its own Completely eliminate the need for all finger sticks Make dosing decision for you CGM is the reading of glucose in the interstitial fluid not actual blood glucose, finger sticks are still necessary when Pt's symptom?s do not match sensor reading and if sensors prompts Pt to do a fingerstick Pt has Freestyle Yohannes 2 Sensor placed on left arm Pt left in warm up Reviewed delay of CGM from fingersticks Reminded pt that if symptoms do not match sensor still needs to check fingersticks. Coding Level of Care Code Est Pt Level 1 (08281) Diagnoses Diabetes type 2, uncontrolled E11.65 Results AMB Hemoglobin A1c AMB Hemoglobin A1c 8.4 % Last Edit by Janny Johnson MA on 11/02/22 13:29
== END 2022-11-02 13:38 | disposition home or self-care (01) ==
LOC: HO.ENCR 13:37
PROVIDERS: PCP Nurse Practitioner Primary Care; Visit Provider Registered Nurse Diabetes Educator
DX: E11.65 Type 2 diabetes mellitus with hyperglycemia (principal)

== ENCOUNTER 2023-02-08 09:54 | Outpatient (REF) | payer MEDICARE, MEDICAID, SELFPAY ==
--- NOTE | ~2023-02-08 | MR_ITS ---
EXAMINATION: MR BRAIN WITHOUT AND WITH CONTRAST CLINICAL INFORMATION: Dizziness COMPARISON: CTA head and neck 05/29/2020 TECHNIQUE: Multiplanar multisequence MR imaging of the brain was obtained without and following the administration of 7.5 mL Gadavist intravenous contrast. FINDINGS: There is no acute infarct on diffusion-weighted imaging. There is no intracranial hemorrhage on iron-sensitive imaging. No extra-axial collection or mass effect/herniation. Scattered periventricular and deep white matter T2 FLAIR hyperintensities consistent with mild underlying microangiopathy. No hydrocephalus. The ventricles are normal in morphology and size. No abnormal parenchymal or extra-axial enhancement. The major flow voids at the skull base are preserved. The midline structures are normal. The cerebellar tonsils are normally positioned. The craniocervical junction is normal. Marrow signal is within normal limits. The visualized soft tissues are without significant abnormality. No signal abnormality within the paranasal sinuses or within the mastoid air cells. MR/MR head/brain wo/w con IMPRESSION: Mild chronic microangiopathy. Otherwise unremarkable contrast-enhanced MRI of the brain
[2023-02-08] MEDS: gadobutroL 7.5 ML VIAL IVPUSH (11:11)
== END 2023-02-08 09:55 | disposition home or self-care (01) ==
LOC: HO.MRI 09:54
PROVIDERS: PCP Nurse Practitioner Primary Care; Visit Provider Nurse Practitioner Primary Care
DX: R26.81 Unsteadiness on feet (principal); Z85.41 Personal history of malignant neoplasm of cervix uteri
CPT/HCPCS: 70553; A9585

== ENCOUNTER 2023-03-16 16:49 | Emergency (ER) | payer MEDICARE, MEDICAID, SELFPAY ==
--- NOTE | ~2023-03-16 | XR_ITS ---
EXAMINATION: XR CHEST CLINICAL INFORMATION: Cough and SOB. COMPARISON: None available. TECHNIQUE: 2 views of the chest were obtained. FINDINGS: No significant abnormality is noted involving the heart, lungs, mediastinum, bony thorax or soft tissues. XR/XR chest 2V IMPRESSION: Unremarkable chest examination.
[2023-03-16 18:03] VITALS: BP 182/53; PULSE 99; RESP 22; TEMP 36.9; O2SAT 99; BMI 25.9
--- NOTE | 2023-03-16 18:07 | ED.GENADULT ---
HPI - General Adult General Chief complaint: General Medical Stated complaint: fever,h/a bodyaches Time Seen by Provider: 03/16/23 22:33 Source: patient Mode of arrival: ambulatory Limitations: no limitations History of Present Illness HPI narrative: Patient has been sick for last 3 weeks she got worse in last few days increased chills no urinary complaints feels weak and tired subjective fever on arrival patient temperature was 100.9 degrees has urostomy and colostomy Related Data Home Medications Medication Instructions Recorded Confirmed allopurinol 100 mg tablet 100 mg PO DAILY 05/29/20 08/22/22 aspirin 81 mg tablet,delayed 81 mg PO DAILY 05/29/20 08/22/22 release atorvastatin 40 mg tablet 40 mg PO BEDTIME 05/29/20 08/22/22 amlodipine 10 mg tablet 10 mg PO DAILY 06/17/21 08/22/22 irbesartan 150 mg tablet 150 mg PO DAILY 06/17/21 08/22/22 pen needle, diabetic 32 gauge x #50 ea 06/17/21 06/17/21/32 (UltiCare Pen Needle) lancets 33 gauge (TRUEplus Lancets) #100 ea 09/17/21 Previous Rx's Medication Instructions Recorded cholecalciferol (vitamin D3) 50 50 mcg PO QAM 30 days #30 caps 08/27/20 mcg (2,000 unit) capsule blood sugar diagnostic (FreeStyle #150 ea 04/06/21 Lite Strips) metformin 1,000 mg tablet 1,000 mg PO BIDWMEAL #180 tabs 07/12/22 dulaglutide 4.5 mg/0.5 mL 4.5 mg (0.5 mL) subcut QWEEK #2 mL 09/27/22 subcutaneous pen injector (Trulicity) insulin degludec 100 unit/mL (3 20 unit (0.2 mL) subcut BEDTIME 10/19/22 mL) subcutaneous pen (Tresiba #15 mL FlexTouch U-100 insulin) cefuroxime axetil 250 mg tablet 250 mg PO BID 10 days #20 tabs 03/17/23 Allergies Allergy/AdvReac Type Severity Reaction Status Date / Time No Known Allergies Allergy Verified 03/16/23 18:06 [No Known Allergies*] Review of Systems Review of Systems: Yes all other systems are reviewed and are negative COUNT INCLUDES THE [facility] Past Medical History Medical History HTN (hypertension) Diabetes type 2, uncontrolled Vitamin D deficiency Surgical History History of urostomy History of surgery S/P cystourethroscopy with dilation of urethral stricture H/O cystoscopy Hx of colostomy Social History Social History Household Members: Children Alcohol intake: never Patient Tobacco Use Status: Former Tobacco user Quit Date: Over 25 years ago Smoked in Last 30 Days: No Second Hand Smoke Exposure: No Use of substances other than those prescribed or required for medical reasons: No Advance Directives: Yes Advance Directives on File: Yes Advance Directives Date on File: 05/30/20 service: No Current occupational status: unemployed Physical Exam ED Vital Signs: Vital Signs - 24 hr 03/16/23 18:03 03/16/23 22:10 03/17/23 00:40 Temperature 98.4 F 100.9 F H Pulse Rate 99 86 64 Respiratory Rate 22 H 16 17 Blood Pressure 182/53 H 106/48 L 109/43 L Pulse Oximetry 99 97 Oxygen Delivery Method Room Air Room Air 03/17/23 01:16 Temperature 99.5 F Pulse Rate Respiratory Rate Blood Pressure Pulse Oximetry Oxygen Delivery Method BMI result Body Mass Index 25.9 Appearance: Alert. Oriented X3. No acute distress. Eyes: PERRLA, No Nystagmus ENT: Pharynx normal. Oral Mucosa moist Neck: Normal inspection. Neck supple. CVS: Normal heart rate and rhythm. Pulses normal. Respiratory: No respiratory distress. Equal air entry bilateral, no wheezing/rales/rhonchi Abdomen: Soft and nontender. Bowel sounds are present, no mass palpable, no CVA tenderness Skin: Skin warm and dry. Normal skin color. Normal skin turgor. Extremities: No lower extremity edema. No calf tenderness Neuro: Oriented X 3. No motor deficit. No sensory deficit.No cerebellar signs , cranial nerves II-XII intact Course Course Course Narrative: This is an RME: Additional HPI, ROS, PE not included below will be deferred to primary provider. This is a 68-year-old female, with a history of diabetes and asthma, presenting to the emergency department for evaluation of subjective fevers, shakiness, shortness of breath, and cough. Patient also endorsing foul-smelling urine. Plan: labs, chest xray, viral swabs Medications Administered Discontinued Medications Generic Name Dose Route Start Last Admin Trade Name Josefa PRN Reason Stop Dose Admin Acetaminophen 975 mg 03/16/23 20:47 03/16/23 20:55 Acetaminophen 325 Mg Tablet PO 03/16/23 20:48 975 mg ONCE ONE Administration Sodium Chloride 1,000 mls @ 999 mls/hr 03/16/23 22:52 03/17/23 01:12 Ns IV 03/16/23 23:52 Infused .Q1H1M ONE Infusion Ceftriaxone Sodium 1 gm/ 50 mls @ 100 mls/hr 03/16/23 22:52 03/17/23 00:05 Sodium Chloride IV 03/16/23 23:21 Infused ONCE ONE Infusion Insulin Human Lispro 6 unit 03/16/23 22:56 03/16/23 23:26 Insulin Lispro 100 Unit/Ml 3 Ml Vial SUBCUT 03/16/23 22:57 6 unit ONCE ONE Administration Medical Decision Making Medical Decision Making [facility] Narrative: Patient with symptoms for last 3 weeks workup showed acute UTI received IV Rocephin blood culture and urine culture sent at this time patient feeling much better and discharged patient home on Ceftin Differential Diagnosis Differential Diagnoses: The differential diagnosis associated with the presentation includes UTI/viral syndrome Admission/Observation Consideration of admission/observation: Escalation of care including admission/observation considered Lab Data [facility] Lab Attestation statement: I reviewed the patient's lab results. 03/16/23 18:22 03/16/23 18:22 Labs: Lab Results 03/16/23 03/16/23 03/16/23 Range/Units 18:21 18:22 22:21 WBC 13.4 H (4.8-10.8) X10*3/uL RBC 4.21 (4.20-5.50) X10*6/uL Hgb 10.9 L (12.0-16.0) g/dl Hct 34.5 L (37.0-47.0) % MCV 81.9 (80.0-98.0) fL MCH 25.9 L (27.0-33.0) pg MCHC 31.6 (31.0-35.0) g/dl RDW 12.3 (11.0-16.0) % Plt Count 260 (160-400) X10*3/uL MPV 9.8 (9.4-12.3) fL Immature Gran % (Auto) 1.3 H (0.0-0.4) % Neut % (Auto) 86.7 H (45-73) % Lymph % (Auto) 6.9 L (20-40) % [place] % (Auto) 4.9 (2-11) % Eos % (Auto) 0.0 (0-4) % Baso % (Auto) 0.2 (0-2) % Lymph # (Auto) 0.9 L (1.2-4.9) X10*3/uL [place] # (Auto) 0.7 (0.1-1.2) X10*3/uL Eos # (Auto) 0.0 (0.0-0.4) X10*3/uL Baso # (Auto) 0.0 (0.0-0.2) X10*3/uL Abs Immat Gran (auto) 0.18 H (0.00-0.03) X10*3/uL Absolute Neuts (auto) 11.6 H (2.0-8.3) x10*3/uL Absolute Nucleated RBC 0.000 (0.0-0.012) X10*3/uL Nucleated RBC % (auto) 0.0 (0.0-0.2) /100WBC Sodium 134 L (135-145) mmol/L Potassium 4.6 (3.3-5.1) mmol/L Chloride 98 (96-108) mmol/L Carbon Dioxide 25 (22-29) mmol/L Anion Gap 16 (12-20) BUN 14 (9-16) mg/dL Creatinine 1.22 (0.5-1.4) mg/dL Estim Creat Clear Calc 41.9 Estimated GFR 44 POC Glucose 307 H (60-115) mg/dL Random Glucose 453 H* (60-115) mg/dL Lactic Acid (0.5-2.0) mmol/L Calcium 10.2 (8.4-10.2) mg/dL Total Bilirubin 0.6 (0.0-1.0) mg/dL Direct Bilirubin 0.3 (0.0-0.5) mg/dL AST 21 (5-31) U/L ALT 15 (0-31) U/L Alkaline Phosphatase 86 (39-117) U/L Total Protein 7.1 (6.5-8.0) g/dL Albumin 3.5 (3.5-5.0) g/dL Urine Color Yellow Urine Appearance Turbid Urine pH 7.0 (5.0-9.0) Ur Specific [place] 1.020 (1.005-1.025) Urine Protein 30 (1+) H (Neg-Trace) mg/dL Urine Glucose (UA) 100 H (Negative) mg/dL Urine Ketones Negative (Negative) mg/dL Urine Blood Small (1+) H (Negative) Urine Nitrite Negative (Negative) Ur Leukocyte Esterase Moderate (2+) H (Negative) Urine RBC 6-10 H (0-2) /HPF Urine WBC >50 H (0-5) /HPF Ur Squamous Epith Cells 11-20 (0-2) /HPF Urine Bacteria 4+ (None Seen) Hyaline Casts >20 (0-2) /LPF Influenza Type A (PCR) NEGATIVE (Negative) Influenza Type B (PCR) NEGATIVE (Negative) RSV RNA Qual (PCR) NEGATIVE (Negative) SARS-CoV-2 RNA (RT-PCR) NEGATIVE (Negative) 03/16/23 03/16/23 03/17/23 Range/Units 23:12 23:15 00:43 WBC (4.8-10.8) X10*3/uL RBC (4.20-5.50) X10*6/uL Hgb (12.0-16.0) g/dl Hct (37.0-47.0) % MCV (80.0-98.0) fL MCH (27.0-33.0) pg MCHC (31.0-35.0) g/dl RDW (11.0-16.0) % Plt Count (160-400) X10*3/uL MPV (9.4-12.3) fL Immature Gran % (Auto) (0.0-0.4) % Neut % (Auto) (45-73) % Lymph % (Auto) (20-40) % [place] % (Auto) (2-11) % Eos % (Auto) (0-4) % Baso % (Auto) (0-2) % Lymph # (Auto) (1.2-4.9) X10*3/uL [place] # (Auto) (0.1-1.2) X10*3/uL Eos # (Auto) (0.0-0.4) X10*3/uL Baso # (Auto) (0.0-0.2) X10*3/uL Abs Immat Gran (auto) (0.00-0.03) X10*3/uL Absolute Neuts (auto) (2.0-8.3) x10*3/uL Absolute Nucleated RBC (0.0-0.012) X10*3/uL Nucleated RBC % (auto) (0.0-0.2) /100WBC Sodium (135-145) mmol/L Potassium (3.3-5.1) mmol/L Chloride (96-108) mmol/L Carbon Dioxide (22-29) mmol/L Anion Gap (12-20) BUN (9-16) mg/dL Creatinine (0.5-1.4) mg/dL Estim Creat Clear Calc Estimated GFR POC Glucose 290 H 238 H (60-115) mg/dL Random Glucose (60-115) mg/dL Lactic Acid 2.1 H* (0.5-2.0) mmol/L Calcium (8.4-10.2) mg/dL Total Bilirubin (0.0-1.0) mg/dL Direct Bilirubin (0.0-0.5) mg/dL AST (5-31) U/L ALT (0-31) U/L Alkaline Phosphatase (39-117) U/L Total Protein (6.5-8.0) g/dL Albumin (3.5-5.0) g/dL Urine Color Urine Appearance Urine pH (5.0-9.0) Ur Specific [place] (1.005-1.025) Urine Protein (Neg-Trace) mg/dL Urine Glucose (UA) (Negative) mg/dL Urine Ketones (Negative) mg/dL Urine Blood (Negative) Urine Nitrite (Negative) Ur Leukocyte Esterase (Negative) Urine RBC (0-2) /HPF Urine WBC (0-5) /HPF Ur Squamous Epith Cells (0-2) /HPF Urine Bacteria (None Seen) Hyaline Casts (0-2) /LPF Influenza Type A (PCR) (Negative) Influenza Type B (PCR) (Negative) RSV RNA Qual (PCR) (Negative) SARS-CoV-2 RNA (RT-PCR) (Negative) Discharge Plan Discharge Clinical Impression: Acute UTI Patient Disposition: Home, Self-Care Instructions: Urinary Tract Infection in Women (ED) Additional Instructions: Drink plenty of fluids Take her insulin on time Antibiotic as prescribed Report to the ER/high fever/vomiting not feeling good Prescriptions: New cefuroxime axetil 250 mg tablet 250 mg PO BID 10 Days Qty: 20 0RF No Action cholecalciferol (vitamin D3) 50 mcg (2,000 unit) capsule 50 mcg PO QAM 30 Days Qty: 30 2RF (DME) FreeStyle Lite Strips Strip See Rx Instructions .Route Qty: 150 11RF Rx Instructions: As directed test blood sugar four times daily metformin 1,000 mg tablet 1,000 mg PO BIDWMEAL Qty: 180 2RF Trulicity 4.5 mg/0.5 mL pen injector 4.5 mg subcut QWEEK Qty: 2 5RF insulin degludec [Tresiba FlexTouch U-100] 100 unit/mL (3 mL) insulin pen 20 unit subcut BEDTIME Qty: 15 5RF atorvastatin 40 mg Tablet 40 mg PO BEDTIME allopurinol 100 mg Tablet 100 mg PO DAILY aspirin 81 mg Tablet,Delayed Release (Dr/Ec) 81 mg PO DAILY irbesartan 150 mg tablet 150 mg PO DAILY amlodipine 10 mg tablet 10 mg PO DAILY (DME) pen needle, diabetic [UltiCare Pen Needle] 32 gauge x 5/32 needle See Rx Instructions .ROUTE .MEDSUPPLY Qty: 50 Rx Instructions: As directed (DME) lancets [TRUEplus Lancets] 33 gauge misc See Rx Instructions Not Applicable QID Qty: 100 Rx Instructions: As directed Interventions: ED Discharge Assessment Last Done: 03/17/23 01:25
[2023-03-16 18:29] LABS: MANUAL DIFF FLAG NO
[2023-03-16 18:31] LABS: Basophils Percent Auto 0.2 % (0-2); Hematocrit 34.5 % (37.0-47.0); Hemoglobin 10.9 g/dl (12.0-16.0); Imm Gran Abs Auto 0.18 X10*3/uL (0.00-0.03); Imm Gran Pct Auto 1.3 % (0.0-0.4); Lymphocytes Absolute Auto 0.9 X10*3/uL (1.2-4.9); Lymphocytes Percent Auto 6.9 % (20-40); Mean Corpuscular HGB Conc 31.6 g/dl (31.0-35.0); Mean Corpuscular Hemoglobin 25.9 pg (27.0-33.0); Mean Corpuscular Volume 81.9 fL (80.0-98.0); Mean Platelet Volume 9.8 fL (9.4-12.3); Monocytes Absolute Auto 0.7 X10*3/uL (0.1-1.2); Monocytes Percent Auto 4.9 % (2-11); Neutrophils Absolute Auto 11.6 x10*3/uL (2.0-8.3); Neutrophils Percent Auto 86.7 % (45-73); Platelet Count 260 X10*3/uL (160-400); Red Blood Count 4.21 X10*6/uL (4.20-5.50); Red Cell Distribution Width 12.3 % (11.0-16.0); White Blood Count 13.4 X10*3/uL (4.8-10.8)
[2023-03-16 18:38] LABS: Appearance Urine Turbid; Color Urine Yellow; Glucose Urine UA 100 mg/dL (Negative); Leukocyte Esterase Urine Moderate (2+) (Negative); Nitrite Urine Negative (Negative); UMIC TRIGGER UACC YES; Urine Blood Small (1+) (Negative); Urine Ketones Negative (Negative); Urine Protein 30 (1+) mg/dL (Neg-Trace)
[2023-03-16 18:51] LABS: Alanine Aminotransferase 15 U/L (0-31); Albumin Level 3.5 g/dL (3.5-5.0); Alkaline Phosphatase 86 U/L (39-117); Anion Gap 16 (12-20); Aspartate Amino Transferase 21 U/L (5-31); Bilirubin Direct 0.3 mg/dL (0.0-0.5); Bilirubin Total 0.6 mg/dL (0.0-1.0); Blood Urea Nitrogen 14 mg/dL (9-16); Calcium 10.2 mg/dL (8.4-10.2); Carbon Dioxide 25 mmol/L (22-29); Chloride 98 mmol/L (96-108); Creatinine Clr Calc Pharmacy 41.9; Estimated Glomerular Filt Rate 44; Potassium 4.6 mmol/L (3.3-5.1); Sodium 134 mmol/L (135-145); Total Protein 7.1 g/dL (6.5-8.0)
[2023-03-16 18:52] LABS: Glucose Random 453 mg/dL (60-115)
[2023-03-16 18:58] LABS: Bacteria Urine 4+ (None Seen); Hyaline Casts Urine >20 /LPF (0-2); UACC Culture Trigger YES; WBC Urine >50 /HPF (0-5)
[2023-03-16 19:09] LABS: Influenza A PCR NEGATIVE (Negative); Influenza B PCR NEGATIVE (Negative); Resp Syncy Virus RNA Qual PCR NEGATIVE (Negative); SARS COV2 PCR INHOUSE NEGATIVE (Negative)
[2023-03-16] MEDS: Acetaminophen 325 MG TABLET 975 MG PO (20:55)
[2023-03-16 22:10] VITALS: BP 106/48; PULSE 86; RESP 16; TEMP 38.3; O2SAT 97
[2023-03-16 22:25] LABS: Glucose, Whole Blood 307 mg/dL (60-115)
[2023-03-16 23:20] LABS: Glucose, Whole Blood 290 mg/dL (60-115)
[2023-03-16] MEDS: cefTRIAXone sodium 1 GM in 0.9 % Sodium Chloride 50 ML IV (23:26)
[2023-03-16] MEDS: Insulin Lispro 100 UNIT/ML 3 ML VIAL 6 UNIT SUBCUT (23:26)
[2023-03-16] MEDS: 0.9 % Sodium Chloride 1,000 ML 999 ML IV (23:27)
[2023-03-16 23:50] LABS: Lactic Acid 2.1 mmol/L (0.5-2.0)
[2023-03-17 00:40] VITALS: BP 109/43; PULSE 64; RESP 17
[2023-03-17 00:48] LABS: Glucose, Whole Blood 238 mg/dL (60-115)
[2023-03-17 01:16] VITALS: TEMP 37.5
[2023-03-17 01:18] LABS: Reflex Lactate? Lactic Acid Added
--- NOTE | 2023-03-17 01:23 | PC.NURSE ---
pt utilized wheelchair at discharge. iv removed at discharge. temp rally 99.5, dr grier made aware no new orders placed prior to discharge. wrapping machine helper utilized. pt provided with discharge packet. pt verbalized understanding of discharge plan
== END 2023-03-17 01:25 | disposition home or self-care (01) ==
PROVIDERS: Physician Assistant Medical; Emergency Provider Internal Medicine; PCP Nurse Practitioner Primary Care
DX: N39.0 Urinary tract infection, site not specified (principal); R50.9 Fever, unspecified; R06.02 Shortness of breath; Z20.822 Contact with and (suspected) exposure to COVID-19; Z20.828 Contact with and (suspected) exposure to other viral communicable diseases; E11.9 Type 2 diabetes mellitus without complications; I10 Essential (primary) hypertension; E55.9 Vitamin D deficiency, unspecified; Z93.3 Colostomy status; Z87.891 Personal history of nicotine dependence; Z79.82 Long term (current) use of aspirin; Z79.899 Other long term (current) drug therapy; Z79.85 Long-term (current) use of injectable non-insulin antidiabetic drugs; Z79.4 Long term (current) use of insulin
CPT/HCPCS: 0241U; 36415; 71046; 80048; 80076; 81001; 82947; 83605; 85025; 87040; 87086; 96365; 99284; J0696

== ENCOUNTER 2023-04-01 12:51 | Outpatient (REF) | payer MEDICARE, MEDICAID, SELFPAY | END 2023-04-01 12:52 | disposition home or self-care (01) | LOC: HO.MAMMO 12:51 | PROVIDERS: PCP Nurse Practitioner Primary Care; Visit Provider Nurse Practitioner Primary Care | DX: Z12.31 Encounter for screening mammogram for malignant neoplasm of breast (principal) | CPT/HCPCS: 77063; 77067 ==

== ENCOUNTER → 2023-04-01 13:00 | Outpatient (BNV) | payer MEDICARE, MEDICAID, SELFPAY | PROVIDERS: PCP Nurse Practitioner Primary Care; Visit Provider Radiology Diagnostic Radiology | DX: Z12.31 Encounter for screening mammogram for malignant neoplasm of breast (principal) | CPT/HCPCS: 77063; 77067 ==

== ENCOUNTER 2023-06-14 08:40 | Outpatient (REF) | payer MEDICARE, MEDICAID, SELFPAY ==
[2023-06-14 10:03] LABS: Cholesterol 200 mg/dL (<200); HDL Cholesterol 38 mg/dL (>40); LDL Cholesterol Calculated 125 mg/dL (<100); Triglycerides 188 mg/dL (<150)
[2023-06-14 11:41] LABS: Creatinine Urine 87.63 mg/dL; Microalbum/Creatinine Ratio Ur 431.3 ug/mg cr (<30)
== END 2023-06-14 08:41 | disposition home or self-care (01) ==
LOC: HO.LAB 08:40
PROVIDERS: PCP Nurse Practitioner Primary Care; Visit Provider Internal Medicine Endocrinology, Diabetes & Metabolism
DX: E11.65 Type 2 diabetes mellitus with hyperglycemia (principal)
CPT/HCPCS: 36415; 80061; 82043; 82570

== ENCOUNTER 2023-06-16 10:45 | Outpatient (AMB) | payer MEDICARE, MEDICAID, SELFPAY ==
[2023-06-16 10:55] VITALS: BP 130/60; PULSE 91; BMI 29.6
--- NOTE | 2023-06-16 10:55 | A.OFFVIS_ITS ---
Intake Vital Signs 06/16/23 10:55 Height 5 ft 4 in Weight 172 lb 2.896 oz BMI 29.6 BP 130/60 Blood Pressure Location Lt brachial Position Sitting Pulse 91 Pulse Source Pulse Oximeter Intake Visit Reasons: f/u Type 2 DM-confirmed Intake Note: Patient presents today to follow up on D2MT. Last Diabetic Eye exam: 2 years ago Last Podiatry Visit: Doesn't have one Random Glucose: 233 mg/dl HgA1c: 8.7% Color Corrector Required: Yes Color Corrector Language: Tank Car Reconditioner Name: [facility] Information Interpreted: non-clinical & clinical Accompanied by: Self / Same As Patient Allergies No Known Allergies [No Known Allergies*] Allergy (Verified 06/16/23 11:03) Medication List - Last Reconciled 06/16/23 by Vic Whiting MD allopurinol 100 mg PO DAILY amlodipine 10 mg PO DAILY aspirin 81 mg PO DAILY atorvastatin 40 mg PO BEDTIME blood sugar diagnostic (FreeStyle Lite Strips) As directed test blood sugar four times daily cefuroxime axetil 250 mg PO BID 10 days cholecalciferol (vitamin D3) 50 mcg PO QAM 30 days dulaglutide (Trulicity) 4.5 mg (0.5 mL) subcut QWEEK insulin degludec (Tresiba FlexTouch U-100 insulin) 20 units (0.2 mL) subcut BEDTIME irbesartan 150 mg PO DAILY lancets (TRUEplus Lancets) As directed metformin 1,000 mg PO BID pen needle, diabetic (UltiCare Pen Needle) As directed HPI HPI Comments History of Present Illness Details 68 YO /F] who is seen in [facility] [place] for T2DM at the request of PCP. Initially diagnosed with T2DM in 25 yrs ago . Was initially started on treatment with not sure . Current regimen metformin 1000 mg b.i.d. Trulcity 4.5 mg Qwkly Lantus 20 units Yohannes download shows she is using the sensor 52% of the time. Average glucose is 218 with G mi of 8.5% and variability 30.6%. 39% range with 41% hyperglycemia and no hypoglycemia. Pen shows elevated point of cares throughout the day with a spike post-lunch Reports low sugars Rare . Complains of numbness in her 2nd to 4th digit both hands. Also complains of occasional episodes of dizziness Family history of T2DM in granfathers Type 2 DM . Has eyes checked yearly, last eye exam needs to make appt , denies retinopathy. had cataract surgery Has neuropathy, does not sees podiatry. has nephropathy, on ARB. UAC as measured on . Has HLD, on statin. Denies CAD. Received and will start Yohannes [facility] diabetes education. [facility] Medical History (Updated 06/16/23 @ 11:22 by Vic Whiting MD) Hyperlipidemia HTN (hypertension) Diabetes type 2, uncontrolled Vitamin D deficiency Surgical History History of urostomy History of surgery S/P cystourethroscopy with dilation of urethral stricture H/O cystoscopy Hx of colostomy Social History Household Members: Children Alcohol intake: never Patient Tobacco Use Status: Former Tobacco user Quit Date: Over 25 years ago Second Hand Smoke Exposure: No Advance Directives Date on File: 05/30/20 service: No Current occupational status: unemployed Physical Exam Vital Signs: Last Vital Signs Pulse 91 06/16/23 10:55 BP 130/60 06/16/23 10:55 BMI result Body Mass Index 29.6 Absence of Cushingoid features. Absence of acromegalic features. Neck exam reveals nl size thyroid about 15 gms. No thyroid nodules palpable. No carotid bruits present. Lungs CTA. Heart S1 S2, Reg R/R. No M/R/ G. Skin exam reveals absence of vitiligo or acanthosis nigricans. Abdominal exam reveals Soft NT/ND with NA BS. No organomegaly present. Neck Other: . Extrem Other: Visual exam of foot performed. No ulcerations or open lesions. No onchomycosis, no callouses.Pulses 2 + distally Sensation intact to monofilament exam. Vibratory sensation sensed is intact with 128 Hz tuning fork Results AMB Hemoglobin A1c AMB Hemoglobin A1c 8.7 % Last Edit by BJ Tillman on 06/16/23 11:20 Results Reviewed Results Reviewed: Laboratory Last Values Glucose (Clinic) 233 mg/dL (60-115) H 06/16/23 11:05 Assessment & Plan Assessment & Plan (1) Diabetes type 2, uncontrolled: Code(s): E11.65 - Type 2 diabetes mellitus with hyperglycemia Plan: This is a 68-year-old female with a history of type 2 diabetes being treated with metformin, Trulicity and basal insulin with deteriorated poor glycemic control and known microvascular complications namely neuropathy and macro albuminuria. Plan is talk to the patient about switching the Trulicity to Mounjaro . Could also add 6 units of Humalog prior to lunch. However, would not at the prandial insulin until patient meets with educator for follow-up. Went over side effects of Mounjaro including but not limited to nausea, vomiting and rare risk of pancreatitis (2) Hyperlipidemia: Code(s): E78.5 - Hyperlipidemia, unspecified Plan: LDL not at goal on atorvastatin 40 mg q.d.. Will add Zetia 10 mg and recheck lipid profile in 2 months Orders: Orders AMB Hemoglobin A1c Today E11.65 - Type 2 diabetes mellitus with hyperglycemia, Z13.9 - Encounter for screening, unspecified Lipid Panel 2 Months E78.5 - Hyperlipidemia, unspecified Medications: New tirzepatide (Mounjaro) 2.5 mg (0.5 mL) subcut QWEEK 4 weeks 2 mL 0RF ezetimibe (Zetia) 10 mg PO DAILY 30 tabs 5RF Discontinued dulaglutide (Trulicity) Discontinued Reason: Doctor's Order 4.5 mg (0.5 mL) subcut QWEEK 2 mL 5RF Coding Level of Care Code Est Pt Level 4 (31230) Diagnoses Diabetes type 2, uncontrolled E11.65 Hyperlipidemia E78.5
[2023-06-16 11:09] LABS: Glucose, Whole Blood 233 mg/dL (60-115)
== END 2023-06-16 11:32 | disposition home or self-care (01) ==
PROVIDERS: PCP Nurse Practitioner Primary Care; Visit Provider Internal Medicine Endocrinology, Diabetes & Metabolism
DX: Z13.9 Encounter for screening, unspecified (principal); E11.65 Type 2 diabetes mellitus with hyperglycemia; E78.5 Hyperlipidemia, unspecified
CPT/HCPCS: 99214

== ENCOUNTER → 2023-06-16 10:45 | Outpatient (BNVA) | payer MEDICARE, MEDICAID, SELFPAY | PROVIDERS: PCP Nurse Practitioner Primary Care; Visit Provider Internal Medicine Endocrinology, Diabetes & Metabolism | DX: E11.65 Type 2 diabetes mellitus with hyperglycemia (principal); E78.5 Hyperlipidemia, unspecified; Z79.4 Long term (current) use of insulin; Z79.85 Long-term (current) use of injectable non-insulin antidiabetic drugs; Z79.84 Long term (current) use of oral hypoglycemic drugs | CPT/HCPCS: 82947; 83036; 99212 ==

== ENCOUNTER 2023-06-28 11:27 | Outpatient (AMB) | payer MEDICARE, MEDICAID, SELFPAY ==
--- NOTE | 2023-06-28 11:58 | A.OFFVIS_ITS ---
Intake Intake Visit Reasons: f/u Type 2 DM Mental Health Technician Required: Yes Mental Health Technician Language: It Project Lead Name: [facility] [place] Accompanied by: Daughter Allergies No Known Allergies [No Known Allergies*] Allergy (Verified 06/16/23 11:03) HPI Comprehensive Diabetes Asmnt Most Recent Diabetes Results: Microalb/Creat Ratio 431.3 ug/mg cr (<30) H 06/14/23 Cholesterol 200 mg/dL (<200) H 06/14/23 HDL Cholesterol 38 mg/dL (>40) L 06/14/23 Triglycerides 188 mg/dL (<150) H 06/14/23 Creatinine 1.22 mg/dL (0.5-1.4) 03/16/23 Blood Urea Nitrogen 14 mg/dL (9-16) 03/16/23 Sodium 134 mmol/L (135-145) L 03/16/23 Potassium 4.6 mmol/L (3.3-5.1) 03/16/23 Chloride 98 mmol/L (96-108) 03/16/23 Carbon Dioxide 25 mmol/L (22-29) 03/16/23 Calcium 10.2 mg/dL (8.4-10.2) 03/16/23 AST 21 U/L (5-31) 03/16/23 ALT 15 U/L (0-31) 03/16/23 Total Protein 7.1 g/dL (6.5-8.0) 03/16/23 Albumin 3.5 g/dL (3.5-5.0) 03/16/23 [facility] Medical History (Updated 06/16/23 @ 11:22 by Vic Whiting MD) Hyperlipidemia HTN (hypertension) Diabetes type 2, uncontrolled Vitamin D deficiency Surgical History History of urostomy History of surgery S/P cystourethroscopy with dilation of urethral stricture H/O cystoscopy Hx of colostomy Social History Household Members: Children Alcohol intake: never Patient Tobacco Use Status: Former Tobacco user Quit Date: Over 25 years ago Second Hand Smoke Exposure: No Advance Directives Date on File: 05/30/20 service: No Current occupational status: unemployed Assessment & Plan Assessment & Plan (1) Diabetes type 2, uncontrolled: Code(s): E11.65 - Type 2 diabetes mellitus with hyperglycemia Plan: Learning objectives: The patient was provided with verbal and written education on the following topics as outlined below. Assess patient education level/literacy/barriers Patient questions/concerns, patient is currently out of sensors has been using glucometer 2 times daily. Did not bring glucometer to today's visit. Patient has not started on Mounjaro, has approval in patient's chart instructed patient to contact pharmacy to orange picking supervisor prescription. Patient also recently moved so she feels that her glucose levels have been higher because of stress The patient met all learning objectives and was able to verbalize understanding and provide teach back of education topics discussed . The patient was provided with the opportunity to ask questions and all questions were answered. Topics covered in today?s session included: Medications (If applicable) * Name of medication? * Dosing/administration instructions? * Mechanism of action? * Potential side effects? * Potential adverse reaction and appropriate treatment? * Review onset, peak, duration Assess for concerns re: insurance coverage, cost, barriers to compliance Insulin/Injectables (If applicable) * Storage/care of insulin?? * Injection sites? * Site rotation? * Onset, peak, duration * Drawing up insulin? * Injecting insulin/other injectables? * Sharps disposal Continuous blood glucose monitoring (if applicable) Hypoglycemia and Hyperglycemia * Signs and symptoms? * Causes?? * Treatment? * Preventing hypoglycemia? * When to seek medical attention * Blood glucose targets and how you feel when your blood glucose is in and out of your target ranges. * Monitoring and knowing your A1C. * What can make blood glucose go up and down and preventing high and low blood glucose. * Review of blood sugar targets in expected goal range and outside of expected goal range. * Problem solving and preventing hyper/hypoglycemia. * Sick day management of diabetes. * Using blood sugar results in decision making process in managing diabetes. ?Patient was receptive to information provided and participated in the discussion. Asked?appropriate questions and demonstrated good understanding of the topics discussed.? ? Educational Materials: The patient was provided with the following written educational materials: Target Goal handout Smart Goal:? Patient will start Mounjaro 2.5 mg weekly, follow-up with support associate in 6 weeks Patient Response to instructions: Comprehension of Instructions: Good Readiness to make changes:? Contemplation How confident they feel about making changes: Positive Coding Level of Care Code Est Pt Level 1 (21417) Diagnoses Diabetes type 2, uncontrolled E11.65
== END 2023-06-28 11:59 | disposition home or self-care (01) ==
PROVIDERS: PCP Nurse Practitioner Primary Care; Visit Provider Registered Nurse Diabetes Educator
DX: E11.65 Type 2 diabetes mellitus with hyperglycemia (principal)

== ENCOUNTER → 2023-06-28 11:27 | Outpatient (BNVA) | payer MEDICARE, MEDICAID, SELFPAY | PROVIDERS: PCP Nurse Practitioner Primary Care; Visit Provider Registered Nurse Diabetes Educator | DX: E11.65 Type 2 diabetes mellitus with hyperglycemia (principal) | CPT/HCPCS: 99211 ==

== ENCOUNTER 2023-07-15 13:01 | Outpatient (REF) | payer MEDICARE, MEDICAID, SELFPAY ==
[2023-07-15 16:53] LABS: Cholesterol 171 mg/dL (<200); HDL Cholesterol 42 mg/dL (>40); LDL Cholesterol Calculated 97 mg/dL (<100); Triglycerides 162 mg/dL (<150)
== END 2023-07-15 13:02 | disposition home or self-care (01) ==
LOC: HO.HHCL 13:01
PROVIDERS: Visit Provider Internal Medicine Endocrinology, Diabetes & Metabolism
DX: E78.5 Hyperlipidemia, unspecified (principal)
CPT/HCPCS: 36415; 80061

== ENCOUNTER 2024-01-05 09:36 | Outpatient (AMB) | payer MEDICARE, MEDICAID, SELFPAY ==
--- NOTE | 2024-01-05 09:39 | A.OFFVIS_ITS ---
Vital Signs 01/05/24 09:44 Height 5 ft 4 in Weight 158 lb 11.725 oz BMI 27.2 BP 110/68 Blood Pressure Location Rt brachial Position Sitting Pulse 78 Pulse Source Pulse Oximeter Intake Visit Reasons: f/u Type 2 DM/hyperlipidemia Intake Note: Patient presents today to re-establish treatment for Type 2 Diabetes Mellitus: Last Diabetic eye exam was on: DUE next year Last Podiatry exam was on: Does not see a Water Control Station Engineer Most recent HbA1c: 8.7%, 01/05/2024 Random Glucose- 195 mg/dL, Today Hand I Blocker Required: Yes Hand I Blocker Language: Legal Department Manager Services: Hand I Blocker Offered & Declined Accompanied by: Daughter Allergies No Known Allergies [No Known Allergies*] Allergy (Verified 06/16/23 11:03) HPI Comments Details: 68 YO female presenting for diabetic follow up. Patient elected daughter to provide interpretation as Telugu is her primary language. They decline professional lathe setup operator service Medical history: HTN, HLD Initially diagnosed with T2DM in 25 yrs ago . Current prescribed: metformin 1000 mg b.i.d. Mounjaro 2.5 weekly Tresiba 25 units weekly Yohannes 2 download shows she is using the sensor 64% of the time. Average glucose is 153 with GMI of 7%. 77% range with 23% hyperglycemia and no hypoglycemia. POC A1C today is 8.7%. Patient explains that she and daughter have been following diabetic diet at home for the past few weeks. Along with 100% medication compliance they attribute the recently improved glucose readings to dietary changes. Denies any interval hypoglycemia. Family history of T2DM in granfathers Type 2 DM . Reports eye exam is UTD. denies retinopathy. had cataract surgery Has neuropathy, does not sees podiatry. has nephropathy, on ARB. Has HLD, on statin. Denies CAD. Had diabetes education. ROS CONSTITUTIONAL: Denies weight loss, fever and chills. HEENT: Denies changes in vision and hearing. RESPIRATORY: Denies SOB and cough. CV: Denies palpitations and CP GI: Denies abdominal pain, nausea, vomiting and diarrhea. : Denies dysuria and urinary frequency. MSK: Denies new myalgia and joint pain. SKIN: Denies rash and pruritus. NEUROLOGICAL: Denies headache PSYCHIATRIC: Denies recent changes in mood. PHYSICAL EXAM: GENERAL: Alert and oriented x 3. NAD EYES: EOMI. Anicteric. HENT: Moist mucous membranes. No scleral icterus. No cervical lymphadenopathy. LUNGS: Clear to auscultation bilaterally. CARDIOVASCULAR: Regular rate and rhythm. No murmur. No JVD. ABDOMEN: Soft, non-tender +bs EXTREMITIES: No edema. Non-tender. SKIN: No rashes or lesions. Warm. NEUROLOGIC: No focal neurological deficits. CN II-XII grossly intact PSYCHIATRIC: Cooperative. Appropriate mood and affect [facility] Medical History (Updated 01/05/24 @ 10:49 by Na Corley MD) Hyperlipidemia HTN (hypertension) Diabetes type 2, uncontrolled Vitamin D deficiency Surgical History History of urostomy History of surgery S/P cystourethroscopy with dilation of urethral stricture H/O cystoscopy Hx of colostomy Social History Household Members: Children Alcohol intake: never Patient Tobacco Use Status: Former Tobacco user Second Hand Smoke Exposure: No Advance Directives Date on File: 05/30/20 service: No Current occupational status: unemployed Physical Exam Vital Signs: Last Vital Signs Pulse 78 01/05/24 09:44 BP 110/68 01/05/24 09:44 BMI result Body Mass Index 27.2 Results AMB Hemoglobin A1c AMB Hemoglobin A1c 8.7 % Last Edit by BJ Savage on 01/05/24 09:58 Results Reviewed Results Reviewed: Laboratory Last Values Glucose (Clinic) 195 mg/dL (60-115) H 01/05/24 09:49 Assessment & Plan Assessment & Plan (1) Diabetes type 2, uncontrolled: Code(s): E11.65 - Type 2 diabetes mellitus with hyperglycemia Category: Medical Qualifiers: Glycemic state: with hyperglycemia Qualified Code(s): E11.65 - Type 2 diabetes mellitus with hyperglycemia Plan: Patients 3 month glucose control is suboptimal however reviewed her Yohannes download and glycemic control has been excellent, or much improved for the past two weeks. As such will keep her on current doses of medications and have her return in 3 months or sooner as needed. Sensors sent. Congratulated on interval weight loss. (2) Hyperlipidemia: Code(s): E78.5 - Hyperlipidemia, unspecified Category: Medical Qualifiers: Hyperlipidemia type: mixed hyperlipidemia Qualified Code(s): E78.2 - Mixed hyperlipidemia Plan: LDL goal <100, preferably <70. continue statin therapy Orders: Orders AMB Hemoglobin A1c Today E11.65 - Type 2 diabetes mellitus with hyperglycemia Medications: New FreeStyle Yohannes 2 Sensor (flash glucose sensor) every 14 days 6 ea 3RF NS E11.65 - Type 2 diabetes mellitus with hyperglycemia Coding Level of Care Code Est Pt Level 5 (82179) Diagnoses Uncontrolled type 2 diabetes mellitus with hyperglycemia E11.65 Glycemic state: with hyperglycemia Mixed hyperlipidemia E78.2 Hyperlipidemia type: mixed hyperlipidemia Time Spent (min) 43
[2024-01-05 09:44] VITALS: BP 110/68; PULSE 78; BMI 27.2
[2024-01-05 09:53] LABS: Glucose, Whole Blood 195 mg/dL (60-115)
== END 2024-01-05 10:16 | disposition home or self-care (01) ==
PROVIDERS: PCP Nurse Practitioner Primary Care; Visit Provider Internal Medicine
DX: E11.65 Type 2 diabetes mellitus with hyperglycemia (principal); E78.2 Mixed hyperlipidemia

== ENCOUNTER → 2024-01-05 09:36 | Outpatient (BNVA) | payer MEDICARE, MEDICAID, SELFPAY | PROVIDERS: PCP Nurse Practitioner Primary Care; Visit Provider Internal Medicine | DX: E11.65 Type 2 diabetes mellitus with hyperglycemia (principal); E78.2 Mixed hyperlipidemia | CPT/HCPCS: 82947; 83036; 99212 ==

== ENCOUNTER 2024-04-26 13:54 | Outpatient (AMB) | payer MEDICARE, MEDICAID, SELFPAY ==
[2024-04-26 14:00] VITALS: BP 112/72; PULSE 74; BMI 26.1
--- NOTE | 2024-04-26 14:00 | A.OFFVIS_ITS ---
Vital Signs 04/26/24 14:00 Height 5 ft 4 in Weight 152 lb 1.903 oz BMI 26.1 BP 112/72 Blood Pressure Location Rt brachial Position Sitting Pulse 74 Pulse Source Pulse Oximeter Intake Visit Reasons: f/u T2DM/hyperlipidemia Intake Note: Patient presents today for a follow-up on Type 2 Diabetes Mellitus: Last Diabetic eye exam was on: DUE next year Last Podiatry exam was on: Does not see a Rn Float Most recent HbA1c: 8.0%, 04/26/2024 Random Glucose- 178 mg/dL, Today Records Technician Required: Yes Records Technician Language: Endband Cutter Hand Services: Records Technician Offered & Declined Records Technician Name: BJ Savage/ANDREIA ABRAHAM Accompanied by: Self / Same As Patient Allergies No Known Allergies [No Known Allergies*] Allergy (Verified 04/26/24 14:05) HPI Comments Details: 69 year female presenting for diabetic follow up. Medical history: HTN, HLD Initially diagnosed with T2DM in 25 yrs ago . Current prescribed: metformin 1000 mg b.i.d. stopped Mounjaro 2.5 weekly due to not wanting to lose additional weight Tresiba 25 units weekly Yohannes 2 download shows infrequent use over the past two weeks-patient explains she was hospitalized for blood clots. HbA1C 8.0% from 8.7% 01/04. Denies any interval hypoglycemia. Family history of T2DM in granfathers Type 2 DM . Reports eye exam is UTD. denies retinopathy. had cataract surgery Has neuropathy, does not sees podiatry. has nephropathy, on ARB. Has HLD, on statin. Denies CAD. Had diabetes education. ROS CONSTITUTIONAL: Denies weight loss, fever and chills. HEENT: Denies changes in vision and hearing. RESPIRATORY: Denies SOB and cough. CV: Denies palpitations and CP GI: Denies abdominal pain, nausea, vomiting and diarrhea. : Denies dysuria and urinary frequency. MSK: Denies new myalgia and joint pain. SKIN: Denies rash and pruritus. NEUROLOGICAL: Denies headache PSYCHIATRIC: Denies recent changes in mood. PHYSICAL EXAM: GENERAL: Alert and oriented x 3. NAD EYES: EOMI. Anicteric. HENT: Moist mucous membranes. No scleral icterus. No cervical lymphadenopathy. LUNGS: Clear to auscultation bilaterally. CARDIOVASCULAR: Regular rate and rhythm. No murmur. No JVD. ABDOMEN: Soft, non-tender +bs EXTREMITIES: No edema. Non-tender. SKIN: No rashes or lesions. Warm. NEUROLOGIC: No focal neurological deficits. CN II-XII grossly intact PSYCHIATRIC: Cooperative. Appropriate mood and affect [facility] Medical History (Updated 01/05/24 @ 10:49 by Na Corley MD) Hyperlipidemia HTN (hypertension) Diabetes type 2, uncontrolled Vitamin D deficiency Surgical History History of urostomy History of surgery S/P cystourethroscopy with dilation of urethral stricture H/O cystoscopy Hx of colostomy Social History Household Members: Children Alcohol intake: never Patient Tobacco Use Status: Former Tobacco user Second Hand Smoke Exposure: No Advance Directives Date on File: 05/30/20 service: No Current occupational status: unemployed Physical Exam Vital Signs: Last Vital Signs Pulse 74 04/26/24 14:00 BP 112/72 04/26/24 14:00 BMI result Body Mass Index 26.1 Results AMB Hemoglobin A1c AMB Hemoglobin A1c 8.0 % Last Edit by BJ Savage on 04/26/24 14:10 Results Reviewed Results Reviewed: Laboratory Last Values Glucose (Clinic) 178 mg/dL (60-115) H 04/26/24 14:03 Hgb A1c (Clinic) 8.0 % (4.0-6.0) H 04/26/24 14:08 Assessment & Plan Assessment & Plan (1) Diabetes type 2, uncontrolled: Code(s): E11.65 - Type 2 diabetes mellitus with hyperglycemia Category: Medical Qualifiers: Glycemic state: with hyperglycemia Qualified Code(s): E11.65 - Type 2 diabetes mellitus with hyperglycemia Plan: Improved diabetic control Stopped mounjaro Increase tresiba from 25 to 32 units given hyperglycemia recently and supoptimal diabetic control though improved Continue metformin She will return in one deng Orders: Orders AMB Hemoglobin A1c Today E11.65 - Type 2 diabetes mellitus with hyperglycemia Medications: Changed From insulin degludec (Tresiba FlexTouch U-100 insulin) 25 units subcut BEDTIME To insulin degludec (Tresiba FlexTouch U-100 insulin) 32 units (0.32 mL) subcut BEDTIME 45 mL 3RF Refilled insulin degludec (Tresiba FlexTouch U-100 insulin) 32 units (0.32 mL) subcut BEDTIME 45 mL 3RF Discontinued tirzepatide (Mounjaro) Discontinued Reason: Doctor's Order 2.5 mg (0.5 mL) subcut QWEEK 2 mL 4RF E11.65 - Type 2 diabetes mellitus with hyperglycemia Coding Level of Care Code Est Pt Level 4 (67797) Diagnoses Uncontrolled type 2 diabetes mellitus with hyperglycemia E11.65 Glycemic state: with hyperglycemia
[2024-04-26 14:09] LABS: Glucose, Whole Blood 178 mg/dL (60-115)
== END 2024-04-26 14:28 | disposition home or self-care (01) ==
PROVIDERS: PCP Nurse Practitioner Primary Care; Visit Provider Internal Medicine
DX: E11.65 Type 2 diabetes mellitus with hyperglycemia (principal)

== ENCOUNTER → 2024-04-26 13:54 | Outpatient (BNVA) | payer MEDICARE, MEDICAID, SELFPAY | PROVIDERS: PCP Nurse Practitioner Primary Care; Visit Provider Internal Medicine | DX: E11.65 Type 2 diabetes mellitus with hyperglycemia (principal); Z79.4 Long term (current) use of insulin | CPT/HCPCS: 82947; 83036; 99212 ==

== ENCOUNTER → 2024-05-10 09:09 | Outpatient (BNVA) | payer MEDICARE, MEDICAID, SELFPAY | PROVIDERS: PCP Nurse Practitioner Primary Care; Visit Provider Internal Medicine | DX: E11.65 Type 2 diabetes mellitus with hyperglycemia (principal); Z79.4 Long term (current) use of insulin | CPT/HCPCS: 82947; 99212 ==

== ENCOUNTER 2024-05-10 09:39 | Outpatient (AMB) | payer MEDICARE, MEDICAID, SELFPAY ==
--- NOTE | 2024-05-10 09:41 | A.OFFVIS_ITS ---
Vital Signs 05/10/24 09:42 Height 5 ft 4 in Weight 156 lb BMI 26.8 BP 154/69 H Blood Pressure Location Rt brachial Position Sitting Pulse 67 Pulse Source Pulse Oximeter Intake Visit Reasons: Med check pt req Intake Note: Patient presents today for a follow-up on Type 2 Diabetes Mellitus: Last Diabetic eye exam was on: DUE next year Last Podiatry exam was on: Does not see a Acetylene Plant Operator Most recent HbA1c: 8.0%, 04/26/2024 Random Glucose- 290 mg/dL, Today Color Paste Mixing Supervisor Required: Yes Color Paste Mixing Supervisor Language: Burundian Allergies No Known Allergies [No Known Allergies*] Allergy (Verified 05/10/24 09:20) Medication List - Last Reconciled 05/10/24 by Ruby Avery NP amlodipine 10 mg PO DAILY apixaban (Eliquis) 5 mg PO BID aspirin 81 mg PO DAILY atorvastatin 40 mg PO BEDTIME blood sugar diagnostic (FreeStyle Lite Strips) As directed test blood sugar four times daily cefuroxime axetil 250 mg PO BID 10 days cholecalciferol (vitamin D3) 50 mcg PO QAM 30 days enoxaparin mg subcut ezetimibe (Zetia) 10 mg PO DAILY FreeStyle Yohannes 2 Sensor (flash glucose sensor) every 14 days NS insulin degludec (Tresiba FlexTouch U-100 insulin) 28 units (0.28 mL) subcut BEDTIME 90 days irbesartan 150 mg PO DAILY lancets (TRUEplus Lancets) As directed metformin 1,000 mg PO BID pen needle, diabetic (UltiCare Pen Needle) As directed HPI Comments Details: 69 year female presenting for diabetic follow up. She she was last seen 04/26/[address] Hadley Pedraza. Most recent A1c was 8% on 04/26/2024 down from previous 8.7%. She was recently admitted to [facility] with a blood clot and is on Eliquis. Initially diagnosed with T2DM approx 1999. She stopped Mounjaro 2.5 weekly as she was losing weight, , had absolutely no appetite and felt poorly. Current prescribed: metformin 1000 mg b.i.d. Tresiba 25 units weekly Yohannes 2 download shows infrequent use over the past two weeks Average 185, 43% higher very high, 57% in range with no lows Denies any interval hypoglycemia. Family history of T2DM in granfathers Type 2 DM . Reports eye exam is UTD. denies retinopathy. had cataract surgery Has neuropathy, does not sees podiatry. has nephropathy, on ARB. Microalbumin 375 on 06/14/2023 [facility] contacted for labs Has HLD, on statin. LDL 97 07/15/2023 Denies CAD. Had diabetes education. [facility] Medical History Hyperlipidemia HTN (hypertension) Diabetes type 2, uncontrolled Vitamin D deficiency Surgical History History of urostomy History of surgery S/P cystourethroscopy with dilation of urethral stricture H/O cystoscopy Hx of colostomy Family History (Updated 05/10/24 @ 09:21 by BJ Savage) Father No problems noted. Mother No problems noted. Social History Household Members: Children Alcohol intake: never Patient Tobacco Use Status: Former Tobacco user Second Hand Smoke Exposure: No Advance Directives Date on File: 05/30/20 service: No Current occupational status: unemployed Physical Exam Vital Signs: Last Vital Signs Pulse 67 05/10/24 09:42 BP 154/69 H 05/10/24 09:42 BMI result Body Mass Index 26.8 Const Other: Absence of Cushingoid features. Absence of acromegalic features. Neck exam reveals nl size thyroid about 15 gms. No thyroid nodules palpable. No carotid bruits present. Lungs CTA. Heart S1 S2, Reg R/R. No M/R G. Skin exam reveals absence of vitiligo or acanthosis nigricans. No edema Visual exam of foot performed. No ulcerations or open lesions. No inter digit maceration or fissuring. No onychomycosis, no callouses. Sensation diminshed to monofilament exam. Vibratory sensation is diminshed with 128 Hz tuning fork. Assessment & Plan Assessment & Plan (1) Diabetes type 2, uncontrolled: Code(s): E11.65 - Type 2 diabetes mellitus with hyperglycemia Category: Medical Qualifiers: Glycemic state: with hyperglycemia Qualified Code(s): E11.65 - Type 2 diabetes mellitus with hyperglycemia Plan: Type 2 diabetic with nephropathy with recent A1c of 8% 04/26/2024. She had difficulty tolerating Mounjaro at 2.5 as it completely wiped out her appetite. We will increase her Tresiba from 25 units to 28 units and continue metformin a 1000 twice daily. She is not scanning with a freestyle to very often so we will order freestyle Yohannes 3+ with a reader. Daughter will schedule an appointment for her once she obtain supplies. If were not able to get the sugars under better control could consider Jardiance. The patient had an opportunity to ask questions regarding treatment plan. The patient expressed understanding and agreement with the above treatment plan. The patient is aware they should contact our office by phone for worsening glucose readings or for any low blood sugars which may warrant a change in diabetes medication. Compliance is encouraged with medications and any followup testing/consults which may have been ordered. Medications: New blood-glucose meter,continuous (FreeStyle Yohannes 3 [place]) for use with glucose sensors 1 ea 0RF FreeStyle Yohannes 3 Sensor (blood-glucose sensor) for continuous use change every 15 days 2 ea 11RF NS E11.65 - Type 2 diabetes mellitus with hyperglycemia Changed From insulin degludec (Tresiba FlexTouch U-100 insulin) 32 units (0.32 mL) subcut BEDTIME 45 mL 3RF To insulin degludec (Tresiba FlexTouch U-100 insulin) 28 units (0.28 mL) subcut BEDTIME 90 days 27 mL 3RF Patient Instructions: Take 15 carb carbohydrate grams to treat a low sugar (3-4 glucose tablets, half a glass of juice or 15 carbohydrate grams of soft candy such as gummie snacks). Recheck your sugar in 15 minutes and re-treat again with 15 carbohydrate grams if low or still with symptoms. Do not drive a car or operate machinery if you do not know what your blood sugar is, if it is low or in excess of 300. foot care The patient was counseled to achieve a target A1C of 7% (154 avg). Fasting blood sugars should be 90-130 in the morning and less than 180 two hours after meals. Reviewed the relationship between poor diabetic control and the development of complications. Coding Level of Care Code Est Pt Level 4 (72779) Complex EM visit Add On G2211 Diagnoses Uncontrolled type 2 diabetes mellitus with hyperglycemia E11.65 Glycemic state: with hyperglycemia Time Spent (min) 30 Comment Time spent reviewing labs/provider notes, face to face, chart doc
[2024-05-10 09:42] VITALS: BP 154/69; PULSE 67; BMI 26.8
--- OUTSIDE RECORDS SUMMARY | 2024-05-10 12:39 | XMS_ITS | Encounter Summary ---
Author Organization [facility] Address [address] [place] [address] Care Team Providers Care Drilling Engineer Name Role Phone Joseph Bullockshannon Lizarraga Primary Care Provider [phone] Encounter Details Date Type Department Care Team (Late st Contact Info) Description 02/19/2020 Orders Only [facility] Interventional Radiology [address] [place] [address] Rhea Monahan MD [address] [place], [place] [id number] Social History Tobacco Use Types Packs/Day Years Used Date Smoking Tobacco: Former Cigarettes Q uit: 04/11/1999 Smokeless Tobacco: Never Comments:quit many years ago , cannot recall, only smoked 2 cig a day Alcohol Use Standard Drinks/Week Comments Never 0 (1 standard drink = 0.6 oz pur e alcohol) Comments No Sex and Gender Information Value Date Recorded Sex Assigned at Not on file Legal Sex Female 9:21 AM EST Gender Identity Not on file Sexual Orientation Straight 08/22/2019 11 :48 AM EDT documented as of this encounter Plan of Treatment Not on file documented as of this encounter Visit Diagnoses Not on filedocumented in this encounter Additional Health Concerns Infection Onset Date Last Indicated Resolved Time R/O C.diff 03/19/2020 03/19/2020 03/26/2020 10:3 4 PM EST documented as of this encounter Care Teams Drilling Engineer Relationship Specialty Start Date End Date Buzz Bullock [address] [place] [address] PCP - General Nurse Practitioner 3/4/20 documented as of this encounter
--- OUTSIDE RECORDS SUMMARY | 2024-05-10 12:39 | XMS_ITS | Encounter Summary ---
Author Organization [facility] Address [address] [facility] [address] [place] [address] Care Team Providers Care Bond Manager Name Role Phone Bibi Hernandez Primary Care Provider [phone] Reason for Visit * Reason Onset Date Comments Med Refill Dec recall 02/02/2023 Encounter Details Date Type Department Care Team ([facility] st Contact Info) Description 02/02/2023 Refill [facility] [address], [place] [phone] Nikky Perrin MD [address] [place] [address] Social History Tobacco Use Types Packs/Day Years Used Date Smoking Tobacco: Never Smokeless Tobacco: Never Alcohol Use Standard Drinks/Week Comments Not Currently 0 (1 standard drink = 0.6 oz pur e alcohol) Housing Stability Answer Date Recorded What is your housing situation today? I do not have housing (Staying with others, in a hotel, in a halfway, living outside on the street, on a beach, in a car, or in a park 01/15/[address] you li ve. Do you have problems with any of the following? None of the above 01/15/2023 Food Insecurity Answer Date Recorded Within the past 12 months, y ou worried that your food would run out before you got money to buy more: Never True 01/24/2023 Within the past 12 months,th e food you bought just didn't last and you didn't have enough money to get more: Never True Transportation Answer Date Recorded In the past 12 months, has l ack of transportation kept you from medical appts, meetings, work or from getting things needed for daily living? No 01/24/2023 Utilities Answer Date Recorded In the past 12 months, has t he electric, gas, oil or water company threatened to shut off services in your home? No 01/24/2023 Depression Answer Date Recorded Patient Health Questionnaire-2 Score 0 12/17/2022 Comments Unknown Sex and Gender Information Value Date Recorded Sex Assigned at Female 02/08/2022 10:14 AM EDT Legal Sex Female 10:14 AM EDT Gender Identity Female 02/08/2022 10:14 AM EDT Sexual Orientation Straight 02/08/2022 10 :14 AM EDT documented as of this encounter Miscellaneous Notes * Telephone Encounter - Walter Reveles MA - 02/02/2023 10:59 AM EDT T/C to pt to schedule a recall rv dm with PCP. Appointment made for 03/29 @ 2:15 pm documented in this encounter Plan of Treatment Upcoming Encounters Date Type Department Care Team (Late st Contact Info) Description 06/21/2024 10:30 AM EDT Office Visit [facility] [address] [place] [address] Bibi Hernandez ANP [address] [place] [address] documented as of this encounter Visit Diagnoses Not on filedocumented in this encounter Care Teams Bond Manager Relationship Specialty Start Date End Date Bibi Hernandez ANP [address] [place] [address] PCP - General Family Medicine 11/27/20 documented as of this encounter
--- OUTSIDE RECORDS SUMMARY | 2024-05-10 12:39 | XMS_ITS | Clinical Summary ---
Author Organization [employer] Address [address] [facility] 7[address] [place] [address] Care Team Providers Care Shank Inspector Name Role Phone Raz Richardson Primary Care Provider [phone] Allergies Active Allergy Reactions Criticality Noted Date Comments Acetaminophen Hives 01/01/2013 Iodinated Contrast Media Rash Medium 09/07/2019 Pt stated she gets a rash all over her body as well nausea at times Oxycodone Hives 01/01/2013 Medications metFORMIN (Glucophage) 1000 MG tablet Take 1 tablet by mouth every 12 (twelve) hours. Active omega-3 (fish oil) 1000 MG capsule Take 1 capsule by mouth 2 times daily. 07/22/19 21 Active Tresiba FlexTouch 100 UNIT/ML injection INJECT 20 UNITS SUBCUTANEOUSLY AT BEDTIME DIRECTED 03/12/20 22 Active dulaglutide (Trulicity) 4.5 MG/0.5ML solution pen-injector Inject under the skin once a week. Active FREESTYLE LITE test stripIndications:T ype 2 diabetes mellitus without complications (CMS/HCC) TEST BLOOD SUGAR 4 TIMES A DAY 200 strip 11 06/08/19 24 Active TRUEplus Lancets 33G miscIndications:Ty pe 2 diabetes mellitus without complications (CMS/HCC) TEST BLOOD SUGAR 4 TIMES A DAY 100 each 11 06/08/19 24 Active Multiple Vitamins-Minerals (CertaVite/Antioxi dants) tablet TAKE 1 TABLET BY MOUTH EVERY MORNING 90 tablet 3 09/15/19 24 Active Aspirin Adult Low Strength 81 MG EC tablet TAKE 1 TABLET BY MOUTH AT BEDTIME 90 tablet 3 09/15/19 24 Active irbesartan (Avapro) 150 MG tablet TAKE 1 TABLET BY MOUTH EVERY MORNING 90 tablet 3 09/15/19 24 Active amLODIPine (Norvasc) 10 MG tablet TAKE 1 TABLET BY MOUTH AT BEDTIME 90 tablet 3 10/31/19 24 Active atorvastatin (Lipitor) 40 MG tablet TAKE 1 TABLET BY MOUTH EVERY EVENING 90 tablet 3 10/31/19 24 Active allopurinol (Zyloprim) 100 MG tablet TAKE 1 TABLET BY MOUTH EVERY MORNING 30 tablet 5 11/02/19 24 Active citalopram (CeleXA) 20 MG tablet TAKE 1 TABLET BY MOUTH EVERY MORNING 30 tablet 5 11/02/19 24 Active BD Pen Needle Nila U/F 32G X 4 MM misc TEST BLOOD SUGAR 4 TIMES A DAY DIRECTED 100 each 11/22/19 24 Active Continuous Glucose Air Conditioning Manager (Clever CloudStyle Yohannes 2 [place]) deviceIndications: Type 2 diabetes mellitus with hyperlipidemia (CMS/HCC) (CMS/HCC) Scan sensor every 8 hours 1 each 12/13/19 Active Active Problems Problem Noted Date Diagnosed Date Abnormal vaginal bleeding 09/01/2022 Cystitis 09/01/2022 Kidney stone 09/01/2022 Uncontrolled type 2 diabetes mellitus 09/01/2022 Vitamin D deficiency 09/01/2022 History of radical hysterectomy 08/19/2022 Cortical age-related cataract of left eye 2022 Assessment & Plan (04/13/2022 2:11 PM EST): Patient is here for a preoperative exam Scheduled for : cataract surgery left eye under local anesthesia After careful evaluation of patients most recent vital signs and physical examination I do not see any contraindication for her to undergo this low risk surgical intervention Pt to follow up with PCP after procedure completed Preoperative examination 04/13/2022 Assessment & Plan (04/13/2022 2:11 PM EST): Patient is here for a preoperative exam Scheduled for : cataract surgery left eye under local anesthesia After careful evaluation of patients most recent vital signs and physical examination I do not see any contraindication for her to undergo this low risk surgical intervention Pt to follow up with PCP after procedure completed Hyperparathyroidism 08/13/2021 Anxiety 08/30/2019 Type 2 diabetes mellitus with hyperlipidemia (CM S/HCC) 08/30/2019 Overview (08/19/2022): Continue metformin 1G BID, tresiba 20 units daily, trulicity 4.5mg/wkly On atorvastatin 40 every day, plus fish oil and ASA Assessment & Plan (04/13/2022 2:00 PM EST): Patient has been instructed to inject only half of her usual dose of Tresiba the night prior to the procedure Pt's blood glucose should be monitored and a regular insulin sliding scale can be use if hyeprglycemia Hyperlipidemia 08/30/2019 History of bowel resection 08/30/2019 Chronic lower back pain 08/30/2019 On deep vein thrombosis (DVT) prophylaxis 2019 Alopecia 03/21/2012 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 Pt had normal Colonoscopy on 11/01/16. Depressive disorder 10/07/2011 Essential hypertension 10/07/2011 Overview (12/13/2023): Continue taking Amlodipine 10 mg, irbesartan 150mg Assessment & Plan (04/13/2022 2:01 PM EST): In terms of her HTN, pt has been instructed to take her blood pressure medications with a small sip of water to prevent her blood pressure from going up during the procedure Malignant tumor of cervix 10/07/2011 Overview (08/19/2022): Images from the original note were not included. From urogyn note 03/2021 for reference Urinary bladder stone 10/07/2011 Encounters Date Type Department Care Team Description 05/10/2024 Orders Only GENERIC EXTERNAL DATA DEPARTMENT Provider, Generic External Data 04/26/2024 Orders Only GENERIC EXTERNAL DATA DEPARTMENT Provider, Generic External Data 03/23/2024 Orders Only [facility] Management [address] [place] [address] ProviderIsabella MD 03/20/2024 Telephone [facility] [address] [place] [address] Raz Richardson ANP No Show (/) from Last 3 Months Immunizations Name Administration Dates Next Due Influenza High-dose Quadriva lent Preservative Free 01/25/2022,01/05/2021 Influenza injectable quadriv alent IIV4 with preservative 01/15/2016 Influenza injectable quadriv alent preservative free 05/31/2020,01/26/2017 Influenza, IIV3, injectable 04/15/2014, 1,01/12/2010 Influenza, Split (incl. rené fied surface antigen) 01/11/2013,03/21/2012 Pfizer Covid-19 Vaccine 12+ Bivalent 07/05/2022 Pneumococcal Polysaccharide PPSV23 02/11/2011, TD (adult), 2 Lf tetanus tox oid, preservative free, adsorbed 02/23/2000 Tdap 04/15/2014 Zoster, live 09/29/2016 Social History Tobacco Use Types Packs/Day Years Used Date Smoking Tobacco: Never Smokeless Tobacco: Never Tobacco Cessation:Counseling Given: Not Answered Alcohol Use Standard Drinks/Week Comments Not Currently 0 (1 standard drink = 0.6 oz pur e alcohol) Depression Answer Date Recorded Patient Health Questionnaire-9 Score 9 12/13/2023 Patient Health Questionnaire-9 Score 9 12/13/2023 Last PHQ-9: Questionnaire Data Not on file 0 12/13/2023 Housing Stability Answer Date Recorded What is your housing situation today? I have sandi mina 11/28/[address] you li ve. Do you have problems with any of the following? None of the above 11/28/2023 Food Insecurity Answer Date Recorded Within the past 12 months, y ou worried that your food would run out before you got money to buy more: Sometimes True 2023 Within the past 12 months,th e food you bought just didn't last and you didn't have enough money to get more: Sometimes True 11/28/2023 Transportation Answer Date Recorded In the past 12 months, has l ack of transportation kept you from medical appts, meetings, work or from getting things needed for daily living? No 11/28/2023 Utilities Answer Date Recorded In the past 12 months, has t he electric, gas, oil or water company threatened to shut off services in your home? No 11/28/2023 Depression Answer Date Recorded Patient Health Questionnaire-2 Score 2 12/13/2023 Internet Access Answer Date Recorded Internet Access Q1 Yes 12/09/2023 Internet Access Q2 Not on file 12/09/2023 Comments Unknown Sex and Gender Information Value Date Recorded Sex Assigned at Female 02/08/2022 10:14 AM EDT Legal Sex Female 10:14 AM EDT Gender Identity Female 02/08/2022 10:14 AM EDT Sexual Orientation Straight 02/08/2022 10 :14 AM EDT Last Filed Vital Signs Vital Sign Reading Time Taken Comments Blood Pressure 120/70 12/13/2023 1:59 PM EDT Pulse 94 12/13/2023 1:25 PM EDT Temperature 37.2 ??C (98.9 ??F) 12/13/2023 1:25 PM ED T Respiratory Rate 20 12/13/2023 1:25 PM EDT Oxygen Saturation 98% 12/13/2023 1:25 PM EDT Inhaled Oxygen Concentration - - Weight 75.4 kg (166 lb 3.2 oz) 12/13/2023 1:25 P M EDT Height 162.6 cm (5' 4 ) 12/17/2022 2:43 PM EDT Body Mass Index 28.53 12/17/2022 2:43 PM EDT Plan of Treatment Upcoming Encounters Date Type Department Care Team (Late st Contact Info) Description 06/21/2024 10:30 AM EDT Office Visit [facility] [address] [place], [place] [phone] Raz Richardson ANP [address] [place] [address] Health Maintenance Due Date Last Done Comments CT Colonography 1955 FIT DNA/Cologuard 1955 FIT 1955 FOBT 1955 Sigmoidoscopy 1955 Alcohol/Substance Use Screening 1967 Hepatitis C Screening 1973 Pneumococcal Vaccine: 50+ Years (2 of 2 - PCV) 02/12/2012 02/11/2011, 02/22/2006 Zoster Vaccines (2 of 3) 11/24/2016 09/29/2016 Colonoscopy 11/01/2021 11/01/2016 Colorectal Cancer Screening 11/01/2021 COVID-19 Vaccine ( season) 2023 07/05/2022, 04/14/2021, 07/19/2020 Influenza Vaccine (#1) 2023 2, 01/05/2021, 05/31/2020, Additional history exists Diabetes: Hemoglobin A1C 03/13/2024 024, 06/16/2023, 07/05/2022, Additional history exists Mammogram 04/01/2024 04/01/2023, 01/09, 12/07/2019, Additional history exists DTaP/Tdap/Td Vaccines (2 - Td or Tdap) 04/15/2024 04/15/2014, 02/23/2000 Depression Monitoring (PHQ-9) 06/11/2024 12/13/2023, 12/13/2023 Diabetes: Urine Protein Screening 06/13/2024 06/14/2023, 07/17/2021 Lipid Panel 06/13/2024 06/14/2023, 02/15/2020 Diabetes: Foot Exam 06/15/2024 06/16/2023 SDOH Screening 11/27/2024 11/28/2023 Depression Screening 12/12/2024 12/13/2023, 12/13/19 Tobacco Screening 12/12/2024 12/13/2023 Eye Exam 09/01/2025 09/02/2023 RSV Patients and Patients Aged 60 years or older (1 - 1-dose 75+ series) 2030 HIB Vaccines Aged Out No longer eligi ble based on patient's age to complete this topic HPV Vaccines Aged Out No longer eligi ble based on patient's age to complete this topic Hepatitis A Vaccines Aged Out No long er eligible based on patient's age to complete this topic Hepatitis B Vaccines Aged Out No long er eligible based on patient's age to complete this topic IPV Vaccines Aged Out No longer eligi ble based on patient's age to complete this topic Meningococcal Vaccine Aged Out No benjamin dusty eligible based on patient's age to complete this topic RSV under 20 months Aged Out No longe r eligible based on patient's age to complete this topic Rotavirus Vaccines Aged Out No longer eligible based on patient's age to complete this topic Procedures Procedure Name Priority Date/Time Associated Diagnosis Comments GLUCOSE, WHOLE BLOOD Routine 05/10/2024 9:37 AM EST GLUCOSE, WHOLE BLOOD Routine 04/26/2024 2:[address] ABDOMEN PELVIS WO CONTRAST Routine 03/14/2024 8:36 AM EST POCT GLYCATED HEMOGLOBIN, TOTAL Routine 12/13/2023 1:50 PM EDT Type 2 diabetes mellitus with hyperlipidemia (CMS/HCC) (CMS/HCC) ALBUMIN, RANDOM URINE W/CREATININE Routine 06/14/2023 9:05 AM EST LIPID PANEL, STANDARD Routine 06/14/2023 9:05 AM EST BI MAMMOGRAM SCREENING TOMOSYNTHESIS BILATERAL Routine 04/01/2023 1:08 PM EST HM COLONOSCOPY Routine 11/01/2016 from Last 3 Months or Most Recently Relevant to Health Maintenance Results * (ABNORMAL) Glucose, Whole Blood (05/10/2024 9:37 AM EST) Only the most recent of2 resultswithin the time period is included. Glucose, Whole Blood 290(H) 60 - 115 mg/dL [facility] Comment:METER #: [id number] 5Testing performed in the Endocrinology Department [address], [address], [facility]. 05/10/2024 9:37 AM EST 05/10/2024 9:45 AM EST us Generic External Data Provider LAB BLOOD ORDERAB LES Final Result [facility] [address] [place] [address] [phone] * CT Abdomen Pelvis w/o Contrast (03/14/2024 8:36 AM EST) Anatomical Region Laterality Modality Body, Pelvis, Abdomen Computed T omography us Historical Provider MD CHOUDHURY CT PROCEDURES Final R esult * (ABNORMAL) POCT HGB A1C (12/13/2023 1:50 PM EDT) Hemoglobin A1C 8.7(A) 4.0 - 6.0 % QC Media Lot # [id number] Lot# Expiration Date Blood 12/13/2023 1:50 PM EDT us Raz Richardson ANP POINT OF CARE TEST ENTER/EDIT OR DERABLES Final Result * (ABNORMAL) Albumin, Random Urine W/Creatinine (06/14/2023 9:05 AM EST) Creatinine, Urine 87.63 mg/dL [facility] Microalbumin Urine 378.0 mg/L [facility] Microalbum Creatinine Ratio Ur 431.3(H) <30 ug/mg cr [facility] Comment:Albumin/Creatinine R atio Reference Ranges: Normal: < 30 ug/mg creatinine Microalbuminuria: 30 - 300 ug/mg creatinineClinical Albuminuria: > 300 ug/mg creatinine 06/14/2023 9:05 AM EST 06/14/2023 10:01 AM EST Generic External Data Provider LAB URINE ORDERAB LES Final Result [facility] [address] [place] [address] [phone] * (ABNORMAL) Lipid Panel, Standard (06/14/2023 9:05 AM EST) Triglycerides 188(H) <150 mg/dL [facility] Comment:Desirable Triglyceri de: less than 150 mg/dLBorderline High Triglyceride 150-199 mg/dLHigh Triglyceride: 200-499 mg/dLVery High Triglyceride: greater than or equal to 5OO mg/dL Cholesterol 200(H) <200 mg/dL [facility] Comment:Desirable Cholestero l: less than 200 mg/dLBorderline High Cholesterol: 200-239 mg/dLHigh Cholesterol: greater than 239 mg/dL LDL Cholesterol Calculated 125(H) <100 mg/dL [facility] Comment:Desirable LDL: less than 100 mg/dLNear Optimal/Above Optimal LDL: 110- 129 mg/dLBorderline High LDL: 130-159 mg/dLHigh LDL: 160-189 mg/dLVery High LDL: greater than or equal to 190 mg/dL HDL Cholesterol 38(L) >40 mg/dL [facility] Comment:Desirable HDL: great er than 40 mg/dL Note: This HDL assay may give artificially low results in patients with liver disease. 06/14/2023 9:05 AM EST 06/14/2023 9:05 AM EST us Generic External Data Provider LAB BLOOD ORDERAB LES Final Result Performing Organization Address City/State/[facility] Co de Phone Number [facility] [address] [place] [address] [phone] * BI Mammogram Screening Tomosynthesis Bilateral (04/01/2023 1:08 PM EST) Anatomical Region Laterality Modality Breast Bilateral Mammography 04/01/2023 1:08 PM EST Narrative 04/06/2023 4:42 AM EST ? [facility] ? [address] ?[place] [address] ? Mammography Report ? Signed ? Patient: Conde,Chivo ?MR#: [id number] ?? 20 ? : 1955 ?Acct:[id number] ? Age/Sex: 68 / F ?ADM Date: 12/22/23 ? Loc: HO.MAMMO ? Attending : Raz Richardson GREEN HOUSE MANAGER ? Ordering Physician: DYLAN,RAZ ISBELL ?Results: 1Negative ? Date of Service: 04/01/23 ?Follow Up: 1 Year From Orig ?? inal Mammogram ? Procedure(s): MM tomosynthesis screening BI ?? Accession Number(s): [id number] ? cc: DYLAN,RAZ AKILAH ? EXAMINATION: ?? MM SCREENING DIGITAL BREAST TOMOSYNTHESIS, BILATERAL ? CLINICAL INFORMATION: ? Screening. Asymptomatic. ? COMPARISON: ?? Mammography: This study is compared with prior exams dating back to ?? 2017. ? TECHNIQUE: ?? Digital breast tomosynthesis is performed in both the craniocaudal and ?? mediolateral oblique views along with computer-aided detection (CAD). ?? Synthesized 2D images are generated from the tomosynthesis. ? FINDINGS: ?? There are scattered areas of fibroglandular density (ACR BI-RADS breast ?? composition Category b). ? There are no significant masses, abnormal calcifications, or other ?? abnormalities. ? MM/MM tomosynthesis screening BI ?? IMPRESSION: ?? No mammographic evidence of malignancy. ? ASSESSMENT: ? BI-RADS BI-RADS 1 - Negative ? RECOMMENDATION: ?? Routine annual mammography screening. ? 1 year F/U ? This examination should not preclude the clinical evaluation of a ?? suspicious palpable abnormality. ? This patient's information was entered into a reminder system with a ?? target due date for their next mammogram. ? Dictated By: ?Taya Perkins MD ? Signed By: ?<Electronically signed by Taya Perkins MD in OV> ? 04/06/23 0438 ? DD/ 1308 ? TD/TT: ? Ladle Puller: ? Procedure Note Jovita, Image - 04/06/2023 [facility] [address] [place] [address] Mammography Report Signed Patient: Alecia Conde#: [id number] 20 : 5Acct:[id number] Age/Sex: 68 / FADM Date: 04/01/23 Loc: HO.MAMMO Attending Dr: Raz Richardson NP Ordering Physician: RAZ RICHARDSON NPResults: 1Negative Date of Service: 04/01/23Follow Up: 1 Year From Orig inal Mammogram Procedure(s): MM tomosynthesis screening BI Accession Number(s): [id number] cc: RAZ RICHARDSON NP EXAMINATION: MM SCREENING DIGITAL BREAST TOMOSYNTHESIS, BILATERAL CLINICAL INFORMATION: Screening. Asymptomatic. COMPARISON: Mammography: This study is compared with prior exams dating back to 2017. TECHNIQUE: Digital breast tomosynthesis is performed in both the craniocaudal and mediolateral oblique views along with computer-aided detection (CAD). Synthesized 2D images are generated from the tomosynthesis. FINDINGS: There are scattered areas of fibroglandular density (ACR BI-RADS breast composition Category b). There are no significant masses, abnormal calcifications, or other abnormalities. MM/MM tomosynthesis screening BI IMPRESSION: No mammographic evidence of malignancy. ASSESSMENT: BI-RADS BI-RADS 1 - Negative RECOMMENDATION: Routine annual mammography screening. 1 year F/U This examination should not preclude the clinical evaluation of a suspicious palpable abnormality. This patient's information was entered into a reminder system with a target due date for their next mammogram. Dictated By: Taya Perkins MD Signed By: <Electronically signed by Taya Perkins MD in OV> 04/06/23 0438 DD/ 1308 TD/TT: Ladle Puller: Raz Richardson ANP IMG BI PROCEDURES Edited Result - Final * Hm Colonoscopy (11/01/2016) Colonoscopy Normal Normal 11/01/2016 Historical Provider HEALTH MAINTENANCE Final Result from Last 3 Months or Most Recently Relevant to Health Maintenance Insurance [facility] STANDARD MEDICARE * Guarantor: Chivo Conde Account Type Relation to Patient Date of Phone Billing Address Personal/Family Self [address] Care Teams Shank Inspector Relationship Specialty Start Date End Date Raz Richardson ANP [address] [place] [phone] PCP - General Family Medicine 11/27/20
--- OUTSIDE RECORDS SUMMARY | 2024-05-10 12:39 | XMS_ITS | Encounter Summary ---
Author Organization [facility] Address [address] [place] [address] Care Team Providers Care Dressmaking Teacher Name Role Phone KobeBuzz Primary Care Provider [phone] Encounter Details Date Type Department Care Team (Late st Contact Info) Description 02/15/2020 Orders Only [facility] CT Scan [address] [place] [address] Efrem Rojas MD [address] [place], [place] [phone] Social History Tobacco Use Types Packs/Day Years [...] documented as of this encounter Care Teams Dressmaking Teacher Relationship Specialty Start Date End Date Buzz Bullock [address] [place] [address] PCP - General Nurse Practitioner 06/13/19 documented as of this encounter
--- OUTSIDE RECORDS SUMMARY | 2024-05-10 12:40 | XMS_ITS ---
Author Organization [facility] Address [address] [place] [address] Care Team Providers Care Barrel Dedenting Machine Operator Name Role Phone Buzz Bullock Primary Care Provider [phone] Active Problems Problem Noted Date Diagnosed Date Diarrhea 03/20/2020 Encounter for attention to colostomy 03/20/2020 Acute deep vein thrombosis ( DVT) of axillary vein of right upper extremity 09/08/2019 Hypertension 08/30/2019 Anxiety 08/30/2019 Bladder stones 08/30/2019 Bulging lumbar disc 08/30/2019 Cervical cancer 08/30/2019 Chronic lower back pain 08/30/2019 Diabetes mellitus, type 2 08/30/2019 Urethral stricture 08/30/2019 Hyperlipidemia 08/30/2019 Radiation cystitis 08/30/2019 Urinary incontinence 08/30/2019 Urinary retention 08/30/2019 Unexpected difficult intubation 08/30/2019 History of bowel resection 08/30/2019 On deep vein thrombosis (DVT) prophylaxis 2019 Sedated due to multiple medications 08/30/2019 Acute respiratory failure 08/30/2019 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 Past Plans No past plan information found. Radiation Treatments * No radiation treatments are documented for this patient in [facility]. Treatments may have been administered in another system. Lifetime Dose Tracking * Chemical Lifetime Dose Automatic Entry Manual Entr y Fluoro Time 0.2 minutes 0.2 minutes 0 minutes Radiation - mGy 4.236 mGy 4.236 mGy 0 mGy Resolved Problems Problem Noted Date Diagnosed Date Resolved Date Postoperative hypovolemic shock 08/30/2019 08/30/2019
--- OUTSIDE RECORDS SUMMARY | 2024-05-10 12:40 | XMS_ITS | Referral Summary ---
Author Organization [facility] Address [address] [place] [address] Care Team Providers Care Technical Account Executive Name Role Phone Buzz Bullock Primary Care Provider [phone] Allergies Active Allergy Reactions Criticality Noted Date Comments Iodinated Contrast Media Dermatitis Medium 09/07/2019 Pt stated she gets a rash all over her body as well nausea at times Medications allopurinoL (ZYLOPRIM) 100 mg tablet Take 100 mg by mouth daily. 0 Active amLODIPine (NORVASC) 5 mg tablet Take 5 mg by mouth nightly. at bedtime. 0 Active aspirin 81 mg EC tablet Take 81 mg by mouth nightly. at bedtime. 0 Active atorvastatin (LIPITOR) 40 mg tablet Take 40 mg by mouth every evening. 0 Active Freestyle Lite test strips TEST BLOOD SUGAR SIX TIMES DAILY 0 Active VITAMIN D3 50 mcg (2,000 unit) capsule Take 1 capsule by mouth daily. 0 Active cholecalciferol (VITAMIN D3) 2,000 unit tablet Take 1 tablet by mouth daily. 9 Active citalopram (CeleXA) 20 mg tablet Take 20 mg by mouth daily. 0 Active LANTUS U-100 INSULIN 100 unit/mL solution injection Inject 15 Units under the skin 2 times a day. 0 Active TRULICITY 1.5 mg/0.5 mL injection dose Tuesdays 0 Active metFORMIN ER (GLUCOPHAGE XR) 500 mg tablet TAKE 2 TABLETS BY MOUTH TWICE DAILY IN THE MORNING AND EVENING WITH FOOD 0 Active CEROVITE ADVANCED FORMULA 18-400 mg-mcg tablet Take 1 tablet by mouth daily. 0 Active FISH OIL 340-1,000 mg capsule TAKE 1 CAPSULE TWICE DAILY IN THE MORNING AND IN THE EVENING 0 Active irbesartan (AVAPRO) 150 mg tablet Take 150 mg by mouth daily. 0 Active insulin syringe-needle U-100 0.5 mL 30 gauge x 5/16 syringe USE FOUR TIMES DAILY DIRECTED 0 Active enoxaparin (LOVENOX) 100 mg/mL subuctaneous injection Inject 0.9 mL (90 mg total) under the skin every 12 hours. Use this injection through September 16 Syringe 0 Active TRUEPLUS LANCETS lancet 33 gauge TEST BLOOD SUGAR SIX TIMES DAILY 0 Active meclizine (ANTIVERT) 25 mg tablet TAKE 1 TABLET BY MOUTH THREE TIMES DAILY NEEDED FOR DIZZINESS 0 Active Tresiba FlexTouch U-100 100 unit/mL (3 mL) insulin pen Inject under the skin. 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 Impaired mobility Resolved Problems Problem Noted Date Diagnosed Date Resolved Date Postoperative hypovolemic shock 08/30/2019 08/30/2019 Social History Tobacco Use Types Packs/Day Years Used Date Smoking Tobacco: Former Cigarettes Q uit: 04/11/1999 Smokeless Tobacco: Never Tobacco Cessation:Counseling Given: No Comments:quit many years ago, cannot recall, only smoked 2 cig a day Alcohol Use Standard Drinks/Week Comments Never 0 (1 standard drink = 0.6 oz pur e alcohol) Comments No Sex and Gender Information Value Date Recorded Sex Assigned at Not on file Legal Sex Female 9:21 AM EST Gender Identity Not on file Sexual Orientation Straight 08/22/2019 11 :48 AM EDT Last Filed Vital Signs Vital Sign Reading Time Taken Comments Blood Pressure 123/80 04/08/2021 2:18 PM EST Pulse 82 04/08/2021 2:18 PM EST Temperature 36.3 ??C (97.4 ??F) 04/08/2021 2:18 PM ES T Respiratory Rate 18 09/11/2019 1:40 PM EDT Oxygen Saturation 98% 04/08/2021 2:18 PM EST Inhaled Oxygen Concentration - - Weight 80.3 kg (177 lb) 04/08/2021 2:18 PM EST Height 162.6 cm (5' 4 ) 04/08/2021 2:18 PM EST Body Mass Index 30.38 04/08/2021 2:18 PM EST Plan of Treatment Not on file Medical Devices Implanted Type Area Manager Stars Device Identifier Shelf Expiration Date Model / Serial / Lot Stent Diversion J Single 7fr X 70mm - [id number] - [id number] Implanted:Qty: 1 on 08/30/2019 by Matt Adhikari MD at [facility] Stent [employer]MPUS 03/16/2021 [id number] / [id number] / [id number] Stent Diversion J Single 7fr X 70mm - [id number] - [id number] Implanted:Qty: 1 on 08/30/2019 by Matt Adhikari MD at [facility] Stent [employer] 03/16/2021 [id number] / [id number] / [id number] Procedures * Due to [place] state law, this organization might not be sharing negative HIV tests. Procedure Name Priority Date/Time Associated Diagnosis Comments BASIC METABOLIC PANEL Routine 12/09/2020 2:26 PM EDT Vesicovaginal fistula HEMOGLOBIN A1C Timed 09/07/2019 7:52 AM EDT from Last 3 Months or Most Recently Relevant to Health Maintenance Results * Due to [place] state law, this organization might not be sharing negative HIV tests. * (ABNORMAL) Basic metabolic panel (12/09/2020 2:26 PM EDT) NA 139 135 - 145 mmol/L 12/09/2020 3:25 PM EDT [facility] K 4.1 3.5 - 5.3 mmol/L 12/09/2020 3:25 PM EDT [facility] Cl 105 97 - 110 mmol/L 12/09/2020 3:25 PM EDT [facility] CO2 28 24 - 32 mmol/L 12/09/2020 3:25 PM EDT [facility] BUN 16 7 - 23 mg/dL 12/09/2020 3:25 PM EDT [facility] Creatinine 0.55 0.50 - 1.20 mg/dL 12/09/2020 3:25 PM EDT [facility] Glucose 155(H) 70 - 99 mg/dL 12/09/2020 3:25 PM EDT [facility] Calcium 10.5 8.7 - 10.7 mg/dL 12/09/2020 3:25 PM EDT [facility] Anion Gap 6 5 - 15 12/09/2020 3:25 PM EDT [facility] eGFR Non- >90 >=90 mL/min/BS A 12/09/2020 3:25 PM EDT [facility] eGFR >90 >=90 mL/min/BS A 12/09/2020 3:25 PM EDT [facility] Comment: Units = mL/min/1.73 m2 Glomerular Filtration Rate (GFR) is estimated based on the CKD-EPI Creatinine Equation (2009). Stage ?Description ? GFR 1 ? Normal ? >=90 mL/min/BSA 2 ? Mildly decreased GFR ? 60-89 mL/min/BSA 3 ? Moderately decreased GFR ? 30-59 mL/min/BSA 4 ? Severely decreased GFR ? 15-29 mL/min/BSA 5 ? Kidney Failure ? <15 mL/min/BSA Blood Structure of peripheral vein / Unknown Venipuncture / Unknown 12/09/2020 2:26 PM EDT 12/09/2020 2:48 PM EDT Piper Barton LINING MACHINE OPERATOR LAB BLOOD ORDERABLES Final Result [facility] [address] [place] [address], * (ABNORMAL) Hemoglobin A1c (09/07/2019 7:52 AM EDT) Hemoglobin A1C 6.2(H) <5.7 % of total Hgb 09/07/2019 10:02 PM EDT [facility] Comment: For someone without known diabetes, a hemoglobin A1c value between 5.7% and 6.4% is consistent with prediabetes and should be confirmed with a follow-up test. For someone with known diabetes, a value <7% indicates that their diabetes is well controlled. A1c targets should be individualized based on duration of diabetes, age, comorbid conditions, and other considerations. This assay result is consistent with an increased risk of diabetes. Currently, no consensus exists regarding use of hemoglobin A1c for diagnosis of diabetes for children. eAG (MG/DL) 131 (calc) 09/07/2019 10:02 PM EDT [facility] eAG (MMOL/L) 7.3 (calc) 09/07/2019 10:02 PM EDT [facility] Blood Implantable venous catheter submitted as specimen / Unknown Existing Catheter / Unknown 09/07/2019 7:52 AM EDT 09/07/2019 8:28 AM EDT Narrative MARIA ARIZMENDI - 09/07/2019 10:02 PM EDT [facility] Received Date: Amara Fuentes LINING MACHINE OPERATOR LAB BLOOD ORDERABLES Ginger l Result [facility] [address] [facility] [address]rd [address], [place] [address], [place] [phone] iTwin [facility] [address] [facility] 3rd Floor, [place] [address], from Last 3 Months or Most Recently Relevant to Health Maintenance Insurance [address] [place] [id number] [facility] Advance Directives Documents on File Type Date Recorded Patient Final Inspector Paper Expl anation Health Care Proxy 09/06/2019 9:12 AM 09/04 * Full Code (Latest Code Status on File) Date Activated Date Inactivated Comments 07/26/2019 5:37 AM 07/26/2019 3:51 PM Care Teams Technical Account Executive Relationship Specialty Start Date End Date Buzz Bullock [address] [place] [address] PCP - General Nurse Practitioner 06/13/19
--- OUTSIDE RECORDS SUMMARY | 2024-05-10 12:40 | XMS_ITS | Encounter Summary ---
Author Organization [facility] [employer] Address [address] [facility] 7t [place] [address] Care Team Providers Care Customer Solutions Coordinator Name Role Phone Bibi Hernandez Primary Care Provider [phone] Encounter Details Date Type Department Care Team ([facility] st Contact Info) Description 03/23/2024 Orders Only [facility] [address] [place], [place] [phone] Provider, MD Isabella Social History Tobacco Use Types Packs/Day Years [...] as of this encounter Plan of Treatment Upcoming Encounters Date Type Department Care Team (Late st Contact Info) Description 06/21/2024 10:30 AM EDT Office Visit [facility] [address] [place], [place] [phone] Bibi Hernandez ANP [address] [place] [address] documented as of this encounter Procedures Procedure Name Priority Date/Time Associated Diagnosis Comments CT ABDOMEN PELVIS WO CONTRAST Routine 03/14/2024 8:36 AM EST documented in this encounter Results * CT Abdomen Pelvis w/o Contrast (03/14/2024 8:36 AM EST) Anatomical Region Laterality Modality Body, Pelvis, Abdomen Computed T omography us Historical Provider MD CHOUDHURY CT PROCEDURES Final R esult documented in this encounter Visit Diagnoses Not on filedocumented in this encounter Additional Health Concerns Assessment Noted Time PHQ-9 Depression Total Score: 9 12/13/19 24 1:28 PM EDT documented as of this encounter Care Teams Customer Solutions Coordinator Relationship Specialty Start Date End Date Bibi Hernandez ANP [address] [place] [phone] PCP - General Family Medicine 11/27/20 documented as of this encounter
--- OUTSIDE RECORDS SUMMARY | 2024-05-10 12:40 | XMS_ITS | Encounter Summary ---
Author Organization [employer] Address [address] [facility] 7t [place] [address] Care Team Providers Care General Hardware Salesperson Name Role Phone Bibi Hernandez Primary Care Provider [phone] Encounter Details Date Type Department Care Team ([facility] st Contact Info) Description 04/26/2024 Orders Only GENERIC EXTERNAL DATA DEPARTMENT Provider, Generic External Data Social History Tobacco Use Types Packs/Day Years [...] Description 06/21/2024 10:30 AM EDT Office Visit [facility] [address] [place] [address] Bibi Hernandez ANP [address] [place] [address] documented as of this encounter Procedures Procedure Name Priority Date/Time Associated Diagnosis Comments GLUCOSE, WHOLE BLOOD Routine 04/26/2024 2:03 PM EST documented in this encounter Results * (ABNORMAL) Glucose, Whole Blood (04/26/2024 2:03 PM EST) Glucose, Whole Blood 178(H) 60 - 115 mg/dL [facility] Comment:METER #: [id number] Testing performed in the Endocrinology Department [address] , [address], [facility]. 04/26/2024 2:03 PM EST 04/26/2024 2:08 PM EST us Generic External Data Provider LAB BLOOD ORDERAB LES Final Result [facility] [address] [place] [address] [phone] documented in this encounter Visit Diagnoses Not on filedocumented in this encounter Additional Health Concerns Assessment Noted Time PHQ-9 Depression Total Score: 9 12/13/19 24 1:28 PM EDT documented as of this encounter Care Teams General Hardware Salesperson Relationship Specialty Start Date End Date Bibi Hernandez ANP [address] [place] [phone] PCP - General Family Medicine 11/27/20 documented as of this encounter
--- OUTSIDE RECORDS SUMMARY | 2024-05-10 12:40 | XMS_ITS | Clinical Summary ---
Author Organization [facility] Address [address] [place] [address] Care Team Providers Care Poultry Inseminator Name Role Phone Buzz Bullock Primary Care Provider [phone] Allergies Active Allergy Reactions Criticality Noted Date [...] Resolved Date Postoperative hypovolemic shock 08/30/2019 08/30/2019 Family History Medical History Relation Name Comments Diabetes Mother Relation Name Status Comments Mother Social History Tobacco Use Types Packs/Day Years [...] 04/08/2021 2:18 PM EST Plan of Treatment Health Maintenance Due Date Last Done Comments Cologuard 1955 Colon Cancer Screening 1955 Colonoscopy 1955 FOBT / Fit Test 1955 Hepatitis C Screening 1955 Sigmoidoscopy 1955 Ophthalmology Exam 1965 Urine Microalbumin 1965 Mammogram 1995 Osteoporosis Screening 2005 Pneumococcal Vaccine: 65+ Years (3 of 3 - PCV) 02/12/2012 02/11/2011, 02/22/2006 RSV Vaccine (60+ years old and patients) (1 - Risk 60-74 years 1-dose series) 2015 Zoster Vaccines (1 of 2) 11/24/2016 09/29/2016 Hemoglobin A1C 03/09/2020 09/07/2019 COVID-19 Vaccine (2 - Eavngelina risk series) 08/16/2020 07/19/2020 Basic Metabolic Panel 12/09/2021 12/09/2020 , 09/11/2019, 09/10/2019, Additional history exists Influenza Vaccine (#1) 2023 , 05/31/2020, 01/26/2017, Additional history exists Alcohol/Substance Use Screening 04/11/2024 Depression Screening and Follow-Up 04/11/2024 Health Care Proxy Review 04/11/2024 Social Drivers of Health Annual Screening 04/11/2024 DTaP,Tdap,and Td Vaccines (2 - Td or Tdap) 04/15/2024 04/15/2014, 02/23/2000 Hepatitis B Vaccines Aged Out No long er eligible based on patient's age to complete this topic Medical Devices Implanted Type Area Ammonia Worker Device Identifier Shelf Expiration Date Model / Serial / Lot Stent Diversion J Single 7fr X 70mm - [id number] - [id number] Implanted:Qty: 1 on 08/30/2019 by Matt Adhikari MD at [facility] [employer] 03/16/2021 [id number] / [id number] / [id number] Stent Diversion J Single 7fr X 70mm - [id number] - [id number] Implanted:Qty: 1 on 08/30/2019 by Matt Adhikari MD at [facility] Stent [employer] 03/16/2021 [id number] / [id number] / [id number] Procedures * Due to [place] Tweetflow law, this organization might not be sharing negative HIV tests. Procedure Name Priority Date/Time Associated Diagnosis Comments BASIC METABOLIC PANEL Routine 12/09/2020 2:26 PM EDT Vesicovaginal fistula HEMOGLOBIN A1C Timed 09/07/2019 7:52 AM EDT from Last 3 Months or Most Recently Relevant to Health Maintenance Results * Due to [place] Tweetflow law, this organization might not be sharing negative HIV tests. * (ABNORMAL) Basic metabolic panel (12/09/2020 2:26 PM EDT) NA 139 135 - 145 mmol/L 12/09/2020 3:25 PM EDT [facility] K 4.1 3.5 - 5.3 mmol/L 12/09/2020 3:25 PM [facility] Cl 105 97 - 110 mmol/L 12/09/2020 3:25 PM [facility] CO2 28 24 - 32 mmol/L 12/09/2020 3:25 PM [facility] BUN 16 7 - 23 mg/dL 12/09/2020 3:25 PM [facility] Creatinine 0.55 0.50 - 1.20 mg/dL 12/09/2020 3:25 PM [facility] Glucose 155(H) 70 - 99 mg/dL 12/09/2020 3:25 PM [facility] Calcium 10.5 8.7 - 10.7 mg/dL 12/09/2020 3:25 PM [facility] Anion Gap 6 5 - 15 12/09/2020 3:25 PM [facility] eGFR Non- >90 >=90 mL/min/BS A 12/09/2020 3:25 PM [facility] eGFR >90 >=90 mL/min/BS A 12/09/2020 3:25 PM [facility] Comment: Units = mL/min/1.73 m2 [...] 2:26 PM EDT 12/09/2020 2:48 PM EDT us Piper Barton PRE ASSEMBLY WIRER LAB BLOOD ORDERABLES Final Result Performing Organization Address [facility] de Phone Number [facility] [address] [place] [address], * (ABNORMAL) Hemoglobin A1c (09/07/2019 7:52 AM EDT) Hemoglobin A1C 6.2(H) <5.7 % of total Hgb 09/07/2019 10:02 PM EDT [facility] Comment: For someone without known diabetes, a [...] (MG/DL) 131 (calc) 09/07/2019 10:02 PM EDT [facility] eAG (MMOL/L) 7.3 (calc) 09/07/2019 10:02 PM EDT [facility] Blood Implantable venous catheter submitted as specimen / Unknown Existing Catheter / Unknown 09/07/2019 7:52 AM EDT 09/07/2019 8:28 AM EDT Narrative [facility] - 09/07/2019 10:02 PM EDT [facility] Received Date: us Amara Fuentes PRE ASSEMBLY WIRER LAB BLOOD ORDERABLES Ginger l Result MARIA ARIZMENDI [address] [facility] 3[address], [place] [address], [place] [phone] [facility] [address] [facility] 3rd [address], [place] [address], [place] [phone] from Last 3 Months or Most Recently Relevant to Health Maintenance Insurance MEDICARE [facility] Advance Directives Documents on File Type Date Recorded Patient Investor Relations Coordinator Expl anation Health Care Proxy 09/06/2019 9:12 AM 09/04 * Full Code (Latest Code Status on File) Date Activated Date Inactivated Comments 07/26/2019 5:37 AM 07/26/2019 3:51 PM Care Teams Poultry Inseminator Relationship Specialty Start Date End Date Buzz Bullock [address] [place] [address] PCP - General Nurse Practitioner 06/13/19
--- OUTSIDE RECORDS SUMMARY | 2024-05-10 12:40 | XMS_ITS | Encounter Summary ---
Author Organization [employer] Address [address] [facility] 7t [place] [address] Care Team Providers Care Facing Cutting Machine Operator Name Role Phone Bibi Hernandez Primary Care Provider [phone] Encounter Details Date Type Department Care Team ([facility] st Contact Info) Description 05/10/2024 Orders Only GENERIC EXTERNAL DATA [...] Description 06/21/2024 10:30 AM EDT Office Visit [facility] [address] [place] [address] Bibi Hernandez ANP [address] [place], [place] [phone] documented as of this encounter Procedures Procedure Name Priority Date/Time Associated Diagnosis Comments GLUCOSE, WHOLE BLOOD Routine 05/10/2024 9:37 AM EST documented in this encounter Results * (ABNORMAL) Glucose, Whole Blood (05/10/2024 9:37 AM EST) Glucose, Whole Blood 290(H) 60 - 115 mg/dL [facility] Comment:METER #: [id number] 5Testing performed in the Endocrinology Department [address] , [address], [facility]. 05/10/2024 9:37 AM EST 05/10/2024 9:45 AM EST us Generic External Data Provider LAB BLOOD ORDERAB LES Final Result [facility] [address] [place] [address] [phone] documented in this encounter Visit Diagnoses Not on filedocumented in this encounter Additional Health Concerns Assessment Noted Time PHQ-9 Depression Total Score: 9 12/13/19 24 1:28 PM EDT documented as of this encounter Care Teams Facing Cutting Machine Operator Relationship Specialty Start Date End Date Bibi Hernandez ANP [address] [place] [phone] PCP - General Family Medicine 11/27/20 documented as of this encounter
== END 2024-05-10 10:05 | disposition home or self-care (01) ==
PROVIDERS: PCP Nurse Practitioner Primary Care; Visit Provider Nurse Practitioner Adult Health
DX: E11.65 Type 2 diabetes mellitus with hyperglycemia (principal)
CPT/HCPCS: 99214; G2211

== ENCOUNTER 2024-06-14 13:07 | Outpatient (AMB) | payer MEDICARE, MEDICAID, SELFPAY ==
--- NOTE | 2024-06-14 09:03 | A.OFFVIS_ITS ---
Vital Signs 06/14/24 13:13 Height 5 ft 4 in Weight 158 lb 11.725 oz BMI 27.2 BP 110/60 Blood Pressure Location Rt brachial Position Sitting Pulse 95 Pulse Source Pulse Oximeter Pulse Oximetry (%) 96 Oxygen Delivery Method Room Air Intake Visit Reasons: T2DM Intake Note: Patient presents today for a follow-up on Type 2 Diabetes Mellitus: Last Diabetic eye exam was on: DUE Last Podiatry exam was on: Does not see a Data Processing Systems Consultant Most recent HbA1c: 8.0%, 04/26/2024 Random Glucose- 224 mg/dL, Today Food Photographer Required: Yes Food Photographer Language: American Accompanied by: Daughter Allergies No Known Allergies [No Known Allergies*] Allergy (Verified 06/14/24 13:19) HPI Comments Details: 69 year female presenting for diabetic follow up. She she was last seen 05/10/24. Basal insulin has been changed from Lantus to Tresiba and that dose has been increased. Most recent A1c was 8% on 04/26/2024 down from previous 8.7%. She was recently admitted to [facility] with a blood clot and is on Eliquis. Had urology procedure Had tube placed, referred to urology [place] for jermaine moon Initially diagnosed with T2DM approx 1999. She stopped Mounjaro 2.5 weekly as she was losing weight,had absolutely no appetite and felt poorly. Current prescribed: metformin 1000 mg b.id. Tresiba 28 units weekly Was previously on a freestyle 2. Her daughter we will set up training for the 3+ that she has received. She has been checking her sugar by fingerstick in the patient is not aware of any specific readings but they have not been running low or high. Denies any interval hypoglycemia. Family history of T2DM in granfathers Type 2 DM . Reports eye exam is UTD. denies retinopathy. had cataract surgery Has neuropathy symptoms include: Numbness and tingling, denies pain or cramping does not see podiatry. has nephropathy, on ARB. Microalbumin 375 on 06/14/2023 PCP contacted for labs Has HLD, on statin. LDL 97 07/15/2023 Denies CAD, PVD,CVA Has prior h/o DVT Had diabetes education. [facility] Medical History (Updated 06/14/24 @ 09:18 by Ruby Avery NP) Blood clot in vein Hyperlipidemia HTN (hypertension) Diabetes type 2, uncontrolled Vitamin D deficiency Surgical History History of urostomy History of surgery S/P cystourethroscopy with dilation of urethral stricture H/O cystoscopy Hx of colostomy Family History (Updated 05/10/24 @ 09:21 by BJ Savage) Father No problems noted. Mother No problems noted. Social History Household Members: Children Alcohol intake: never Patient Tobacco Use Status: Former Tobacco user Second Hand Smoke Exposure: No Advance Directives Date on File: 05/30/20 service: No Current occupational status: unemployed Physical Exam Vital Signs: Last Vital Signs Pulse 95 06/14/24 13:13 BP 110/60 06/14/24 13:13 Pulse Ox 96 06/14/24 13:13 Oxygen Delivery Method Room Air 06/14/24 13:13 BMI result Body Mass Index 27.2 Const Other: Absence of Cushingoid features. Absence of acromegalic features. Neck exam reveals nl size thyroid about 15 gms. No thyroid nodules palpable. Heart S1 S2, Reg R/R. No M/R G. Skin exam reveals absence of vitiligo or acanthosis nigricans. No edema Visual exam of foot performed. No ulcerations or open lesions. No inter digit maceration or fissuring. No onychomycosis, no callouses. Sensation intact to monofilament exam. Vibratory sensation is normal with 128 Hz tuning fork. 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 Continue current medication. Her daughter will set up an appointment with Jena IVORY to get started on freestyle Yohannes 3+ with her android. If you develop significant illness with vomiting or fever keep hydrated and temporarily stop metformin. Notify Endocrine Clinic if sugars are over 250. Stop metformin prior to surgery or tests in which dye is injected in the body. The patient had an opportunity to ask questions regarding treatment plan. The patient expressed understanding and agreement with the above treatment plan. The patient is aware they should contact our office by phone for worsening glucose readings or for any low blood sugars which may warrant a change in diabetes medication. Compliance is encouraged with medications and any followup testing/consults which may have been ordered. Coding Level of Care Code Est Pt Level 4 (13339) Complex EM visit Add On G2211 Diagnoses Uncontrolled type 2 diabetes mellitus with hyperglycemia E11.65 Glycemic state: with hyperglycemia Time Spent (min) 30 Comment Time spent reviewing labs/provider notes, face to face, chart doc
[2024-06-14 13:13] VITALS: BP 110/60; PULSE 95; O2SAT 96; BMI 27.2
[2024-06-14 13:24] LABS: Glucose, Whole Blood 224 mg/dL (60-115)
--- OUTSIDE RECORDS SUMMARY | 2024-06-14 15:53 | XMS_ITS | Clinical Summary ---
Author Organization [facility] Address [address] [place] [address] Care Team Providers Care Milker Machine Name Role Phone Buzz Bullock Primary Care Provider [phone] Allergies Active Allergy Reactions Criticality Noted Date [...] Mammogram 1995 Osteoporosis Screening 2005 Pneumococcal Vaccine: 50+ Years (3 of 3 - PCV) 02/12/2012 02/11/2011, 02/22/2006 RSV Vaccine (60+ years old and patients) (1 - Risk 60-74 years 1-dose series) 2015 Zoster Vaccines (1 of 2) 11/24/2016 09/29/2016 Hemoglobin A1C 03/09/2020 09/07/2019 COVID-19 Vaccine (2 - Evangelina risk series) 08/16/2020 07/19/2020 Basic Metabolic Panel [...] this topic Medical Devices Implanted Type Area Prescription Eyeglass Maker Device Identifier Shelf Expiration Date Model / Serial / Lot Stent Diversion J Single 7fr X 70mm - [id number] - [id number] Implanted:Qty: 1 on 08/30/2019 by Matt Adhikari MD at [facility] Stent [employer]US 03/16/2021 [id number] / [id number] / [id number] Stent Diversion J Single 7fr X 70mm - [id number] - [id number] Implanted:Qty: 1 on 08/30/2019 by Matt Adhikari MD at [facility] [employer] 03/16/2021 [id number] / [id number] / [id number] Procedures * Due to [place] [employer] law, this organization might not be sharing negative HIV tests. Procedure Name Priority Date/Time Associated Diagnosis Comments BASIC METABOLIC PANEL Routine 12/09/2020 2:26 PM EDT Vesicovaginal fistula HEMOGLOBIN A1C Timed 09/07/2019 7:52 AM EDT from Last 3 Months or Most Recently Relevant to Health Maintenance Results * Due to [place] [employer] law, this organization might not be sharing negative HIV tests. * (ABNORMAL) Basic metabolic panel (12/09/2020 2:26 PM EDT) NA 139 135 - 145 mmol/L 12/09/2020 3:25 PM EDT [facility] K 4.1 3.5 - 5.3 mmol/L 12/09/2020 3:25 PM [facility] Cl 105 97 - 110 mmol/L 12/09/2020 3:25 PM [facility] CO2 28 24 - 32 mmol/L 12/09/2020 3:25 PM [facility] BUN 16 7 - 23 mg/dL 12/09/2020 3:25 PM [facility] Creatinine 0.55 0.50 - 1.20 mg/dL 12/09/2020 3:25 PM [facility] Glucose 155(H) 70 - 99 mg/dL 12/09/2020 3:25 PM [facility] Calcium 10.5 8.7 - 10.7 mg/dL 12/09/2020 3:25 PM [facility] Anion Gap 6 5 - 15 12/09/2020 3:25 PM [facility] eGFR Non- >90 >=90 mL/min/BS A 12/09/2020 3:25 PM [facility] eGFR >90 >=90 mL/min/BS A 12/09/2020 3:25 PM [facility] Comment: Units = mL/min/1.73 [...] 12/09/2020 2:48 PM EDT us Piper Barton DRIVER LICENSE AGENT LAB BLOOD ORDERABLES Final Result Performing Organization Address [facility] de Phone Number [facility] [address] [place] [address], * (ABNORMAL) Hemoglobin A1c (09/07/2019 7:52 AM EDT) Hemoglobin A1C 6.2(H) <5.7 % of total Hgb 09/07/2019 10:02 PM EDT [employer] Comment: For someone without known diabetes, a [...] (MG/DL) 131 (calc) 09/07/2019 10:02 PM EDT [employer] eAG (MMOL/L) 7.3 (calc) 09/07/2019 10:02 PM EDT [employer] Blood Implantable venous catheter submitted as specimen / Unknown Existing Catheter / Unknown 09/07/2019 7:52 AM EDT 09/07/2019 8:28 AM EDT Narrative [facility] - 09/07/2019 10:02 PM EDT [facility] Received Date: us Amara Fuentes DRIVER LICENSE AGENT LAB BLOOD ORDERABLES Ginger l Result MARIA ARIZMENDI [address] [facility] [address], [place] [address], [place] [phone] [facility] [address] [facility] [address], [place] [address], [place] [phone] from Last 3 Months or Most Recently Relevant to Health Maintenance Insurance MEDICARE [facility] Advance Directives Documents on File Type Date Recorded Patient Lab Manager Expl anation Health Care Proxy 09/06/2019 9:12 AM 09/04 * Full Code (Latest Code Status on File) Date Activated Date Inactivated Comments 07/26/2019 5:37 AM 07/26/2019 3:51 PM Care Teams Milker Machine Relationship Specialty Start Date End Date Buzz Bullock [address] [place] [id number] PCP - General Nurse Practitioner 06/13/19
--- OUTSIDE RECORDS SUMMARY | 2024-06-14 15:53 | XMS_ITS | Referral Summary ---
Author Organization [facility] Address [address] [place] [address] Care Team Providers Care Pottery Decoration Designer Name Role Phone Buzz Bullock Primary Care Provider [phone] Allergies Active Allergy Reactions Criticality Noted Date [...] on file Medical Devices Implanted Type Area Put In Beat Adjuster Device Identifier Shelf Expiration Date Model / Serial / Lot Stent Diversion J Single 7fr X 70mm - [id number] - [id number] Implanted:Qty: 1 on 08/30/2019 by Matt Adhikari MD at [facility] Stent [employer] 03/16/2021 [id number] / [id number] / [id number] Stent Diversion J Single 7fr X 70mm - [id number] - [id number] Implanted:Qty: 1 on 08/30/2019 by Matt Adhikari MD at [facility] Stent [employer] 03/16/2021 [id number] / [id number] / [id number] Procedures * Due to [place] state law, this organization might not be sharing negative HIV tests. Procedure Name Priority Date/Time Associated Diagnosis Comments BASIC METABOLIC PANEL Routine 12/09/2020 2:26 PM EDT Vesicovaginal fistula HEMOGLOBIN A1C Timed 09/07/2019 7:52 AM EDT from Last 3 Months or Most Recently Relevant to Health Maintenance Results * Due to [place] state law, this organization might not be sharing negative HIV tests. * (ABNORMAL) Basic metabolic panel (12/09/2020 2:26 PM EDT) NA 139 135 - 145 mmol/L 12/09/2020 3:25 PM EDT [facility] K 4.1 3.5 - 5.3 mmol/L 12/09/2020 3:25 PM EDT [facility] Cl 105 97 - 110 mmol/L 12/09/2020 3:25 PM EDT [facility] CO2 28 24 - 32 mmol/L 12/09/2020 3:25 PM EDT [facility] BUN 16 7 - 23 mg/dL 12/09/2020 3:25 PM EDT [facility] Creatinine 0.55 0.50 - 1.20 mg/dL 12/09/2020 3:25 PM EDT [facility] Glucose 155(H) 70 - 99 mg/dL 12/09/2020 3:25 PM EDT [facility] Calcium 10.5 8.7 - 10.7 mg/dL 12/09/2020 3:25 PM EDT [facility] Anion Gap 6 5 - 15 12/09/2020 3:25 PM EDT [facility] eGFR Non- >90 >=90 mL/min/BS A 12/09/2020 3:25 PM EDT [facility] eGFR >90 >=90 mL/min/BS A 12/09/2020 3:25 PM EDT [facility] Comment: Units = mL/min/1.73 [...] EDT 12/09/2020 2:48 PM EDT Piper Barton COOK [facility] LAB BLOOD ORDERABLES Final Result [facility] [address] [place] [address], * (ABNORMAL) Hemoglobin A1c (09/07/2019 7:52 AM EDT) Hemoglobin A1C 6.2(H) <5.7 % of total Hgb 09/07/2019 10:02 PM EDT [employer] Comment: For someone without known diabetes, a [...] (MG/DL) 131 (calc) 09/07/2019 10:02 PM EDT [employer] eAG (MMOL/L) 7.3 (calc) 09/07/2019 10:02 PM EDT [employer] Blood Implantable venous catheter submitted as specimen / Unknown Existing Catheter / Unknown 09/07/2019 7:52 AM EDT 09/07/2019 8:28 AM EDT Narrative MARIA ARIZMENDI - 09/07/2019 10:02 PM EDT [facility] Received Date: Amara Fuentes COOK [facility] LAB BLOOD ORDERABLES Ginger l Result MARIA CADETBANNERMARIE [address] [facility] [address], [place] [address], [place] [phone] [employer] [facility] [address] [facility] [address], [place] [address], from Last 3 Months or Most Recently Relevant to Health Maintenance Insurance MEDICARE [facility] Advance Directives Documents on File Type Date Recorded Patient Hyperbaric Technician Expl anation Health Care Proxy 09/06/2019 9:12 AM 09/04 * Full Code (Latest Code Status on File) Date Activated Date Inactivated Comments 07/26/2019 5:37 AM 07/26/2019 3:51 PM Care Teams Pottery Decoration Designer Relationship Specialty Start Date End Date Buzz Bullock [address] [place] [id number] PCP - General Nurse Practitioner 06/13/19
--- OUTSIDE RECORDS SUMMARY | 2024-06-14 15:53 | XMS_ITS ---
Author Organization [facility] Address [address] [place] [address] Care Team Providers Care Supervisor Wash House Name Role Phone Sujathakeith Buzz Zia Primary Care Provider [phone] Active Problems Problem Noted Date Diagnosed Date [...] 08/30/2019 Vesicovaginal fistula 07/20/2019 Impaired mobility Current Treatment and Therapy Plans No current plan information found. Past Treatment and Therapy Plans No past plan information found. Lifetime Dose Tracking * Chemical Lifetime Dose Automatic Entry Manual Entr y Fluoro Time 0.2 minutes 0.2 minutes 0 minutes Radiation - mGy 4.236 mGy 4.236 mGy 0 mGy Resolved Problems Problem Noted Date Diagnosed Date Resolved Date Postoperative hypovolemic shock 08/30/2019 08/30/2019
--- OUTSIDE RECORDS SUMMARY | 2024-06-14 15:53 | XMS_ITS | Encounter Summary ---
Author Organization [facility] Address [address] [place] [address] Care Team Providers Care Bottling Machine Operator Name Role Phone KobeBuzz Primary Care Provider [phone] Encounter Details Date Type Department Care Team (Late st Contact Info) Description 02/15/2020 Orders Only [facility] CT Scan [address] [place] [address] Efrem Rojas MD [address] [place], [place] [phone] Social History Tobacco Use Types Packs/Day Years [...] documented as of this encounter Care Teams Bottling Machine Operator Relationship Specialty Start Date End Date Buzz Bullock [address] [place] [address] PCP - General Nurse Practitioner 06/13/19 documented as of this encounter
--- OUTSIDE RECORDS SUMMARY | 2024-06-14 15:53 | XMS_ITS | Encounter Summary ---
Author Organization [facility] Address [address] [place] [address] Care Team Providers Care Enamel Applier Name Role Phone Kobe Buzz S Primary Care Provider [phone] Encounter Details Date Type Department Care Team (Late st Contact Info) Description 02/19/2020 Orders Only [facility] Interventional Radiology [address] [place] [address] Rhea Monahan MD [address] [place], [place] [phone] Social History Tobacco Use Types Packs/Day Years [...] documented as of this encounter Care Teams Enamel Applier Relationship Specialty Start Date End Date Buzz Bullock [address] [place] [address] PCP - General Nurse Practitioner 3/4/20 documented as of this encounter
== END 2024-06-14 13:36 | disposition home or self-care (01) ==
PROVIDERS: PCP Nurse Practitioner Primary Care; Visit Provider Nurse Practitioner Adult Health
DX: E11.65 Type 2 diabetes mellitus with hyperglycemia (principal)
CPT/HCPCS: 99214; G2211

== ENCOUNTER → 2024-06-14 13:07 | Outpatient (BNVA) | payer MEDICARE, MEDICAID, SELFPAY | PROVIDERS: PCP Nurse Practitioner Primary Care; Visit Provider Nurse Practitioner Adult Health | DX: E11.65 Type 2 diabetes mellitus with hyperglycemia (principal); Z79.4 Long term (current) use of insulin; Z79.84 Long term (current) use of oral hypoglycemic drugs | CPT/HCPCS: 82947; 99212 ==

== ENCOUNTER 2024-07-05 12:03 | Outpatient (AMB) | payer MEDICARE, MEDICAID, SELFPAY ==
--- NOTE | 2024-07-05 12:36 | MHC.AMDMED ---
Intake Intake Visit Reasons: T2DM Cyanide Pot Tender Required: Yes Cyanide Pot Tender Language: Sheet Metal Assembler Name: Pt's daughter Accompanied by: Daughter Allergies No Known Allergies [No Known Allergies*] Allergy (Verified 06/14/24 13:19) HPI Comprehensive Diabetes Asmnt Most Recent Diabetes Results: No Data to Display [facility] Medical History (Updated 06/14/24 @ 09:18 by Ruby Avery NP) Blood clot in vein Hyperlipidemia HTN (hypertension) Diabetes type 2, uncontrolled Vitamin D deficiency Surgical History History of urostomy History of surgery S/P cystourethroscopy with dilation of urethral stricture H/O cystoscopy Hx of colostomy Family History (Updated 05/10/24 @ 09:21 by BJ Savage) Father No problems noted. Mother No problems noted. Social History Household Members: Children Alcohol intake: never Patient Tobacco Use Status: Former Tobacco user Second Hand Smoke Exposure: No Advance Directives Date on File: 05/30/20 service: No Current occupational status: unemployed Assessment & Plan Assessment & Plan (1) Diabetes type 2, uncontrolled: Code(s): E11.65 - Type 2 diabetes mellitus with hyperglycemia Qualifiers: Glycemic state: with hyperglycemia Qualified Code(s): E11.65 - Type 2 diabetes mellitus with hyperglycemia Plan: Patient's cell phone is not compatible with Yohannes 3 angel, prescription request sent to provider for Yohannes 3 reader Patient Instructions: Patient's daughter will set up appointment once they receive Yohannes 3 reader Coding Level of Care Code Est Pt Level 1 (07379) Diagnoses Uncontrolled type 2 diabetes mellitus with hyperglycemia E11.65 Glycemic state: with hyperglycemia
--- OUTSIDE RECORDS SUMMARY | 2024-07-05 15:27 | XMS_ITS | Encounter Summary ---
Author Organization [employer] Address [address] [place] [address] Care Team Providers Care Disc Ruler Operator Name Role Phone Bibi Hernandez Primary Care Provider [phone] Reason for Visit * Reason Onset Date Comments chartprep 06/19/2024 Encounter Details Date Type Department Care Team ([facility] st Contact Info) Description 06/19/[address] [facility] MED & PEDS [address] [place], [place] [phone] Bibi Hernandez ANP [address] [place] [address] chartprep Social History Tobacco Use Types Packs/Day Years [...] encounter Miscellaneous Notes * Telephone Encounter - Kristi Ramirez [place] - 06/19/2024 12:19 PM EDT Chart Prep Labs: not applicable Images: done Vaccines due: yes Covid, tdap, pcv20, rsv, and zoster. Referrals: n/a Screenings: colonoscopy , mammogram , Foot Exam Overdue care gaps: A1C, Glucose, Sbirt, PHQ-9, NAOMIE-7 documented in this encounter Plan of Treatment Upcoming Encounters Date Type Department Care Team (Late st Contact Info) Description 08/23/2024 2:30 PM EDT Office Visit [facility] MEDICINE [address] [place] [address] Bibi Hernandez ANP [address] [place] [address] documented as of this encounter Visit Diagnoses Not on filedocumented in this encounter Additional Health Concerns Assessment Noted Time PHQ-9 Depression Total Score: 9 12/13/19 24 1:28 PM EDT documented as of this encounter Care Teams Disc Ruler Operator Relationship Specialty Start Date End Date Bibi Hernandez ANP [address] [place] [address] PCP - General Family Medicine 11/27/20 documented as of this encounter
--- OUTSIDE RECORDS SUMMARY | 2024-07-05 15:27 | XMS_ITS | Encounter Summary ---
Author Organization [facility] Address [address] [place] [address] Care Team Providers Care Type Rolling Machine Operator Name Role Phone Kobe Buzz S Primary Care Provider [phone] Encounter Details Date Type Department Care Team (Late st Contact Info) Description 02/19/2020 Orders Only [facility] Interventional Radiology [address] [place] [address] Rhea Monahan MD [address] [place], [place] [phone] Social History Tobacco Use Types Packs/Day Years [...] documented as of this encounter Care Teams Type Rolling Machine Operator Relationship Specialty Start Date End Date Buzz Bullock [address] [place] [address] PCP - General Nurse Practitioner 3/4/20 documented as of this encounter
--- OUTSIDE RECORDS SUMMARY | 2024-07-05 15:27 | XMS_ITS | Encounter Summary ---
Author Organization [facility] Address [address] [place] [address] Care Team Providers Care Blocking Machine Operator Second Name Role Phone KobeBuzz Primary Care Provider [phone] Encounter Details Date Type Department Care Team (Late st Contact Info) Description 02/15/2020 Orders Only [facility] CT Scan [address] [place] [address] Efrem Rojas MD [address] [place], [place] [phone] Social History Tobacco Use Types Packs/Day Years [...] documented as of this encounter Care Teams Blocking Machine Operator Second Relationship Specialty Start Date End Date Buzz Bullock [address] [place] [address] PCP - General Nurse Practitioner 06/13/19 documented as of this encounter
--- OUTSIDE RECORDS SUMMARY | 2024-07-05 15:27 | XMS_ITS | Encounter Summary ---
Author Organization [employer] Address [address] [facility] 7t [place] [address] Care Team Providers Care User Experience Researcher Name Role Phone Bibi Hernandez Primary Care Provider [phone] Encounter Details Date Type Department Care Team ([facility] st Contact Info) Description 06/14/2024 Orders Only GENERIC EXTERNAL DATA DEPARTMENT Provider, [...] Description 08/23/2024 2:30 PM EDT Office Visit [facility] MEDICINE [address] [place] [address] Bibi Hernandez ANP [address] [place], [place] [phone] documented as of this encounter Procedures Procedure Name Priority Date/Time Associated Diagnosis Comments GLUCOSE, WHOLE BLOOD Routine 06/14/2024 1:17 PM EST documented in this encounter Results * (ABNORMAL) Glucose, Whole Blood (06/14/2024 1:17 PM EST) Glucose, Whole Blood 224(H) 60 - 115 mg/dL [facility] Comment:METER #: [id number] 5Testing performed in the Endocrinology Department [address] , [address], [facility]. 06/14/2024 1:17 PM EST 06/14/2024 1:24 PM EST us Generic External Data Provider LAB BLOOD ORDERAB LES Final Result [facility] [address] [place] [address] [phone] documented in this encounter Visit Diagnoses Not on filedocumented in this encounter Additional Health Concerns Assessment Noted Time PHQ-9 Depression Total Score: 9 12/13/19 24 1:28 PM EDT documented as of this encounter Care Teams User Experience Researcher Relationship Specialty Start Date End Date Bibi Hernandez ANP [address] [place] [phone] PCP - General Family Medicine 11/27/20 documented as of this encounter
--- OUTSIDE RECORDS SUMMARY | 2024-07-05 15:27 | XMS_ITS | Referral Summary ---
Author Organization [facility] Address [address] [place] [address] Care Team Providers Care Discharge Door Operator Name Role Phone Buzz Bullock Primary Care Provider [phone] Allergies Active Allergy Reactions Criticality Noted Date [...] on file Medical Devices Implanted Type Area Java Manager Device Identifier Shelf Expiration Date Model / Serial / Lot Stent Diversion J Single 7fr X 70mm - [id number] - [id number] Implanted:Qty: 1 on 08/30/2019 by Matt Adhikari MD at [facility] Stent [employer] 03/16/2021 [id number] / [id number] / [id number] Stent Diversion J Single 7fr X 70mm - [id number] - [id number] Implanted:Qty: 1 on 08/30/2019 by Matt Adhikari MD at [facility] Stent [employer] 03/16/2021 [id number] / [id number] / [id number] Procedures * Due to [place] state law, this organization might not be sharing negative HIV tests. Procedure Name Priority Date/Time Associated Diagnosis Comments BASIC METABOLIC PANEL Routine 12/09/2020 2:26 PM EDT Vesicovaginal fistula HEMOGLOBIN A1C Timed 09/07/2019 7:52 AM EDT from Last 3 Months or Most Recently Relevant to Health Maintenance Results * Due to [place] state law, this organization might not be sharing negative HIV tests. * (ABNORMAL) Basic metabolic panel (12/09/2020 2:26 PM EDT) NA 139 135 - 145 mmol/L 12/09/2020 3:25 PM EDT [facility] K 4.1 3.5 - 5.3 mmol/L 12/09/2020 3:25 PM EDT [facility] Cl 105 97 - 110 mmol/L 12/09/2020 3:25 PM EDT [facility] CO2 28 24 - 32 mmol/L 12/09/2020 3:25 PM EDT [facility] BUN 16 7 - 23 mg/dL 12/09/2020 3:25 PM EDT [facility] Creatinine 0.55 0.50 - 1.20 mg/dL 12/09/2020 3:25 PM EDT [facility] Glucose 155(H) 70 - 99 mg/dL 12/09/2020 3:25 PM EDT [facility] Calcium 10.5 8.7 - 10.7 mg/dL 12/09/2020 3:25 PM EDT [facility] Anion Gap 6 5 - 15 12/09/2020 3:25 PM EDT [facility] eGFR Non- >90 >=90 mL/min/BS A 12/09/2020 3:25 PM EDT [facility] eGFR >90 >=90 mL/min/BS A 12/09/2020 3:25 PM EDT [facility] Comment: Units = mL/min/1.73 [...] EDT 12/09/2020 2:48 PM EDT Piper Barton DIRECTOR OF SPECIAL EDUCATION LAB BLOOD ORDERABLES Final Result [facility] [address] [place] [address], * (ABNORMAL) Hemoglobin A1c (09/07/2019 7:52 AM EDT) Hemoglobin A1C 6.2(H) <5.7 % of total Hgb 09/07/2019 10:02 PM EDT [employer] Comment: For someone without known diabetes, a [...] (MG/DL) 131 (calc) 09/07/2019 10:02 PM EDT [employer] eAG (MMOL/L) 7.3 (calc) 09/07/2019 10:02 PM EDT [employer] Blood Implantable venous catheter submitted as specimen / Unknown Existing Catheter / Unknown 09/07/2019 7:52 AM EDT 09/07/2019 8:28 AM EDT Narrative MARIA ARIZMENDI - 09/07/2019 10:02 PM EDT [facility] Received Date: Amara Fuentes DIRECTOR OF SPECIAL EDUCATION LAB BLOOD ORDERABLES Ginger l Result [facility] [address] [facility] 3rd [address], [place] [address], [place] [phone] [facility] [address] [facility] 3[address], [place] [address], from Last 3 Months or Most Recently Relevant to Health Maintenance Insurance MEDICARE [facility] Advance Directives Documents on File Type Date Recorded Patient Independent Trader Expl anation Health Care Proxy 09/06/2019 9:12 AM 09/04 * Full Code (Latest Code Status on File) Date Activated Date Inactivated Comments 07/26/2019 5:37 AM 07/26/2019 3:51 PM Care Teams Discharge Door Operator Relationship Specialty Start Date End Date Buzz Bullock [address] [place] [phone] PCP - General Nurse Practitioner 06/13/19
--- OUTSIDE RECORDS SUMMARY | 2024-07-05 15:27 | XMS_ITS | Encounter Summary ---
Author Organization [employer] Address [address] [facility] 7t [place] [address] Care Team Providers Care Blacksmith Assistant Name Role Phone Bibi Hernandez Primary Care Provider [phone] Encounter Details Date Type Department Care Team ([facility] st Contact Info) Description 03/23/2024 Orders Only [place] [facility] [address] [place], [place] [phone] Provider, MD Isabella Social History Tobacco Use [...] Description 08/23/2024 2:30 PM EDT Office Visit [facility] [address] [place], [place] [phone] Bibi Hernandez ANP [address] [place] [address] documented as of this encounter Procedures Procedure [...] documented as of this encounter Care Teams Blacksmith Assistant Relationship Specialty Start Date End Date Bibi Hernandez ANP [address] [place] [phone] PCP - General Family Medicine 11/27/20 documented as of this encounter
--- OUTSIDE RECORDS SUMMARY | 2024-07-05 15:27 | XMS_ITS | Clinical Summary ---
Author Organization [employer] Address [address] [facility] 7t [place] [address] Care Team Providers Care Lace Roller Name Role Phone Raz Richardson Primary Care Provider [phone] Allergies Active Allergy Reactions Criticality Noted Date [...] EVENING 90 tablet 3 10/31/19 24 Active BD Pen Needle Nila U/F 32G X 4 MM misc TEST BLOOD SUGAR 4 TIMES A DAY DIRECTED 100 each 11/22/19 24 Active Continuous Glucose Geospatial Technician (FreeStyle Yohannes 2 [place]) deviceIndications: Type 2 diabetes mellitus with hyperlipidemia (CMS/HCC) (CMS/HCC) Scan sensor every 8 hours 1 each 12/13/19 24 Active allopurinol (Zyloprim) 100 MG tablet TAKE 1 TABLET BY MOUTH EVERY MORNING 30 tablet 5 05/31/19 25 Active citalopram (CeleXA) 20 MG tablet TAKE 1 TABLET BY MOUTH EVERY MORNING 30 tablet 5 05/31/19 25 Active Active Problems Problem Noted Date Diagnosed [...] Encounters Date Type Department Care Team Description 06/19/2024 Telephone [facility] [address] [place], [place] [phone] Raz Richardson ANP chartprep 06/14/2024 Orders Only GENERIC EXTERNAL DATA DEPARTMENT Provider, Generic External Data 06/07/2024 Orders Only [employer] [facility] [address] [place] [address] Isabella Salinas MD 05/30/2024 Refill [facility] [address] [place] [address] Raz Richardson ANP 05/10/2024 Orders Only GENERIC EXTERNAL DATA DEPARTMENT Provider, Generic External Data 04/26/2024 Orders Only GENERIC EXTERNAL DATA DEPARTMENT Provider, Generic External Data from Last 3 Months Immunizations Name Administration [...] the past 12 months, has t he [employer] Sp[employer], gas, oil or water Info threatened to shut off services in your [...] Description 08/23/2024 2:30 PM EDT Office Visit [facility] [address] [place] [address] Raz Richardson, ANP [address] [place] [address] Health Maintenance Due Date Last Done Comments CT Colonography 1955 FIT DNA/Cologuard 1955 FIT 1955 FOBT 1955 Sigmoidoscopy 1955 Alcohol/Substance Use Screening 1967 Hepatitis C Screening 1973 Pneumococcal Vaccine: 50+ Years (2 of 2 - PCV) 02/12/2012 02/11/2011, 02/22/2006 RSV Patients and Patients Aged 60 years or older (1 - Risk 60-74 years 1-dose series) 2015 Zoster Vaccines (2 of 3) 11/24/2016 09/29/2016 Colonoscopy 11/01/2021 11/01/2016 Colorectal Cancer Screening 11/01/2021 COVID-19 Vaccine ( - season) 2023 07/05/2022, 04/14/2021, 07/19/2020 Diabetes: Hemoglobin A1C 03/13/2024 024, 06/16/2023, 07/05/2022, Additional history exists Mammogram 04/01/2024 04/01/2023, 01/09, 12/07/2019, Additional history exists DTaP/Tdap/Td Vaccines (2 - Td or Tdap) 04/15/2024 04/15/2014, 02/23/2000, 02/23/2000 Depression Monitoring (PHQ-9) 06/11/2024 12/13/2023, 12/13/2023 Diabetes: Urine Protein Screening 06/13/2024 06/14/2023, 07/17/2021 Lipid Panel 06/13/2024 06/14/2023, 02/15/2020 Diabetes: Foot Exam 06/15/2024 06/16/2023 SDOH Screening 11/27/2024 11/28/2023 Depression Screening 12/12/2024 12/13/2023, 12/13/19 Tobacco Screening 12/12/2024 12/13/2023 Eye Exam 09/01/2025 09/02/2023 Influenza Vaccine Completed 03/24/2024, , 01/25/2022, Additional history exists HIB Vaccines Aged Out No longer eligi [...] WHOLE BLOOD Routine 06/14/2024 1:[address] ABDOMEN PELVIS WO CONTRAST Routine 06/06/2024 1:37 PM EST GLUCOSE, WHOLE BLOOD Routine 05/10/2024 9:37 AM EST GLUCOSE, WHOLE BLOOD Routine 04/26/2024 2:03 PM EST POCT GLYCATED HEMOGLOBIN, TOTAL Routine 12/13/2023 1:50 PM EDT Type 2 diabetes mellitus with hyperlipidemia (CMS/HCC) ([facility]) ALBUMIN, RANDOM URINE W/CREATININE Routine 06/14/2023 9:05 AM EST LIPID PANEL, STANDARD Routine 06/14/2023 9:05 AM EST BI MAMMOGRAM SCREENING TOMOSYNTHESIS BILATERAL Routine 04/01/2023 1:08 PM EST HM COLONOSCOPY Routine 11/01/2016 from Last 3 Months or Most Recently Relevant to Health Maintenance Results * (ABNORMAL) Glucose, Whole Blood (06/14/2024 1:17 PM EST) Only the most recent of3 resultswithin the time period is included. Glucose, Whole Blood 224(H) 60 - 115 mg/dL [facility] Comment:METER #: [id number] 5Testing performed in the Endocrinology Department [address] , [address], [place]. 06/14/2024 1:17 PM EST 06/14/2024 1:24 PM EST us Generic External Data Provider LAB BLOOD ORDERAB LES Final Result [facility] [address] [place] [phone] * CT Abdomen Pelvis w/o Contrast (06/06/2024 1:37 PM EST) Anatomical Region Laterality Modality Body, Pelvis, Abdomen Computed T omography Historical Provider MD CHOUDHURY CT PROCEDURES Final R esult * (ABNORMAL) POCT HGB A1C (12/13/2023 1:50 PM EDT) Hemoglobin A1C 8.7(A) 4.0 - 6.0 % QC Media Lot # [id number] Lot# Expiration Date Blood 12/13/2023 1:50 PM EDT Raz GARCIA POINT OF CARE TEST ENTER/EDIT OR DERABLES Final Result * (ABNORMAL) Albumin, Random Urine W/Creatinine (06/14/2023 9:05 AM EST) Creatinine, Urine 87.63 mg/dL [facility] Microalbumin Urine 378.0 mg/L [facility] Microalbum Creatinine Ratio Ur 431.3(H) <30 ug/mg cr [facility] Comment:Albumin/Creatinine R atio Reference Ranges: Normal: < 30 ug/mg creatinine Microalbuminuria: 30 - 300 ug/mg creatinineClinical Albuminuria: > 300 ug/mg creatinine 06/14/2023 9:05 AM EST 06/14/2023 10:01 AM EST Generic External Data Provider LAB URINE ORDERAB LES Final Result [facility] [address] [place] [address] [phone] * (ABNORMAL) Lipid Panel, Standard (06/14/2023 9:05 AM EST) Triglycerides 188(H) <150 mg/dL [facility] Comment:Desirable Triglyceri de: less than 150 mg/dLBorderline High Triglyceride 150-199 mg/dLHigh Triglyceride: 200-499 mg/dLVery High Triglyceride: greater than or equal to 5OO mg/dL Cholesterol 200(H) <200 mg/dL [facility] Comment:Desirable Cholestero l: less than 200 mg/dLBorderline High Cholesterol: 200-239 mg/dLHigh Cholesterol: greater than 239 mg/dL LDL Cholesterol Calculated 125(H) <100 mg/dL [facility] Comment:Desirable LDL: less than 100 mg/dLNear Optimal/Above Optimal LDL: 110- 129 mg/dLBorderline High LDL: 130-159 mg/dLHigh LDL: 160-189 mg/dLVery High LDL: greater than or equal to 190 mg/dL HDL Cholesterol 38(L) >40 mg/dL [facility] Comment:Desirable HDL: great er than 40 mg/dL Note: This HDL assay may give artificially low results in patients with liver disease. 06/14/2023 9:05 AM EST 06/14/2023 9:05 AM EST us Generic External Data Provider LAB BLOOD ORDERAB LES Final Result Performing Organization Address City/State/[facility] Co de Phone Number [facility] [address] [place] [address] [phone] * BI Mammogram Screening Tomosynthesis Bilateral (04/01/2023 1:08 PM EST) Anatomical Region Laterality Modality Breast Bilateral Mammography 04/01/2023 1:08 PM EST Narrative 04/06/2023 4:42 AM EST ? [facility] [place] ? [address] ?[place] [address] ? Mammography Report ? Signed ? Patient: Conde,Chivo ?MR#: [id number] ?? 20 ? : 1955 ?Acct:[id number] ? Age/Sex: 68 / F ?ADM Date: 12/22/23 ? Loc: HO.MAMMO ? Attending Dr: Raz Richardson SUIT ATTENDANT ? Ordering Physician: RAZ RICHARDSON NP ?Results: 1Negative ? Date of Service: 04/01/23 ?Follow Up: 1 Year From Orig ?? inal Mammogram ? Procedure(s): MM tomosynthesis screening BI ?? Accession Number(s): [id number] ? cc: RAZ RICHARDSON NP ? EXAMINATION: ?? MM SCREENING DIGITAL BREAST TOMOSYNTHESIS, BILATERAL ? CLINICAL INFORMATION: ? Screening. Asymptomatic. ? COMPARISON: ?? Mammography: This study is compared with prior exams dating back to ?? 2016. ? TECHNIQUE: ?? Digital breast tomosynthesis is [...] MD in OV> ? 04/06/23 0438 ? DD/DT: 04/01/ 1308 ? TD/TT: ? Political Scientist: ? Procedure Note Donotuseinterpreter, Image - 04/06/20[facility] [address] [place], [place] [address] Mammography Report Signed Patient: Alecia Conde#: [id number] 20 : 5Acct:[id number] Age/Sex: 68 / FADM Date: 04/01/23 Loc: HO.MAMMO Attending Dr: Raz Richardson SUIT ATTENDANT Ordering Physician: RAZ RICHARDSON NPResults: 1Negative Date of Service: 04/01/23Follow Up: 1 Year From Orig inal Mammogram Procedure(s): MM tomosynthesis screening BI Accession Number(s): [id number] cc: ARZ RICHARDSON NP EXAMINATION: MM SCREENING DIGITAL BREAST [...] by Taya Perkins MD in OV> 04/06/23 8467 DD/ 1308 TD/TT: Political Scientist: Raz Richardson ANP IMG BI PROCEDURES Edited Result - Final * Hm Colonoscopy (11/01/2016) Colonoscopy Normal Normal 11/01/2016 Historical Provider MD HEALTH MAINTENANCE Final Result from Last 3 Months or Most Recently Relevant to Health Maintenance Insurance [facility] STANDARD MEDICARE * Guarantor: Chivo Conde Account Type Relation to Patient Date of Phone Billing Address Personal/Family Self [address] [place] [address] Care Teams Lace Roller Relationship Specialty Start Date End Date Raz Richardson ANP [address] [place] [address] PCP - General Family Medicine 11/27/20
--- OUTSIDE RECORDS SUMMARY | 2024-07-05 15:27 | XMS_ITS | Clinical Summary ---
Author Organization [facility] Address [address] [place] [address] Care Team Providers Care Manager Home Healthcare Name Role Phone Buzz Bullock Primary Care Provider [phone] Allergies Active Allergy Reactions Criticality Noted Date [...] 1955 Hepatitis C Screening 1955 Sigmoidoscopy 1955 Medicare AWV 1956 Ophthalmology Exam 1965 Urine Microalbumin 1965 Mammogram [...] this topic Medical Devices Implanted Type Area Headend Technician Device Identifier Shelf Expiration Date Model / Serial / Lot Stent Diversion J Single 7fr X 70mm - [id number] - [id number] Implanted:Qty: 1 on 08/30/2019 by Matt Adhikari MD at [facility] Stent [employer] 03/16/2021 [id number] / [id number] / [id number] Stent Diversion J Single 7fr X 70mm - [id number] - [id number] Implanted:Qty: 1 on 08/30/2019 by Matt Adhikari MD at [facility] Stent [employer] 03/16/2021 [id number] / [id number] / [id number] Procedures * Due to [place] [employer] law, this organization might not be sharing negative HIV tests. Procedure Name Priority Date/Time Associated Diagnosis Comments BASIC METABOLIC PANEL Routine 12/09/2020 2:26 PM EDT Vesicovaginal fistula HEMOGLOBIN A1C Timed 09/07/2019 7:52 AM EDT from Last 3 Months or Most Recently Relevant to Health Maintenance Results * Due to [place] [employer] law, this organization might not be sharing negative HIV tests. * (ABNORMAL) Basic metabolic panel (12/09/2020 2:26 PM EDT) NA 139 135 - 145 mmol/L 12/09/2020 3:25 PM EDT [facility] K 4.1 3.5 - 5.3 mmol/L 12/09/2020 3:25 PM [facility] Cl 105 97 - 110 mmol/L 12/09/2020 3:25 PM [facility] CO2 28 24 - 32 mmol/L 12/09/2020 3:25 PM [facility] BUN 16 7 - 23 mg/dL 12/09/2020 3:25 PM [facility] Creatinine 0.55 0.50 - 1.20 mg/dL 12/09/2020 3:25 PM [facility] Glucose 155(H) 70 - 99 mg/dL 12/09/2020 3:25 PM [facility] Calcium 10.5 8.7 - 10.7 mg/dL 12/09/2020 3:25 PM [facility] Anion Gap 6 5 - 15 12/09/2020 3:25 PM [facility] eGFR Non- >90 >=90 mL/min/BS A 12/09/2020 3:25 PM [facility] eGFR >90 >=90 mL/min/BS A 12/09/2020 3:25 PM [facility] Comment: Units = mL/min/1.73 [...] 12/09/2020 2:48 PM EDT us Piper Barton POLYMERIZATION ENGINEER LAB BLOOD ORDERABLES Final Result Performing Organization Address [facility] [place]/State/ZIP Co de Phone Number [facility] [address] [place] [address], * (ABNORMAL) Hemoglobin A1c (09/07/2019 7:52 AM EDT) Hemoglobin A1C 6.2(H) <5.7 % of total Hgb 09/07/2019 10:02 PM EDT [employer] Comment: For someone without known diabetes, a [...] (MG/DL) 131 (calc) 09/07/2019 10:02 PM EDT [employer] eAG (MMOL/L) 7.3 (calc) 09/07/2019 10:02 PM EDT [employer] Blood Implantable venous catheter submitted as specimen / Unknown Existing Catheter / Unknown 09/07/2019 7:52 AM EDT 09/07/2019 8:28 AM EDT Narrative [facility] - 09/07/2019 10:02 PM EDT [facility] Received Date: Amara Fuentes POLYMERIZATION ENGINEER LAB BLOOD ORDERABLES Ginger l Result MARIA ARIZMENDI [address], [place] [address], [place] [phone] [facility] [address], [place] [address], [place] [phone] from Last 3 Months or Most Recently Relevant to Health Maintenance Insurance MEDICARE [facility] Advance Directives Documents on File Type Date Recorded Patient Firmware Test Engineer Expl [facility] Proxy 09/06/2019 9:12 AM 09/04 * Full Code (Latest Code Status on File) Date Activated Date Inactivated Comments 07/26/2019 5:37 AM 07/26/2019 3:51 PM Care Teams Manager Home Healthcare Relationship Specialty Start Date End Date Buzz Bullock [address] [place] [address] PCP - General Nurse Practitioner 06/13/19
--- OUTSIDE RECORDS SUMMARY | 2024-07-05 15:27 | XMS_ITS | Encounter Summary ---
Author Organization [employer] Address [address] [facility] 7t [place] [address] Care Team Providers Care Anesthesiology Teacher Name Role Phone Bibi Hernandez Primary Care Provider Reason for Visit * Reason Onset Date Comments Med Refill Dec recall 02/02/2023 Encounter Details Date Type Department Care Team ([facility] st Contact Info) Description 02/02/2023 Refill [facility] [address] [place], [place] [phone] Nikky Perrin MD [address] [place] [address] Social History Tobacco Use Types Packs/Day Years Used Date Smoking Tobacco: Never Smokeless Tobacco: Never Alcohol Use Standard Drinks/Week Comments Not Currently 0 (1 standard drink = 0.6 oz pur e alcohol) Housing Stability Answer Date Recorded What is your housing situation today? I do not have housing (Staying with others, in a hotel, in a skilled nursing, living outside on the street, on a [...] Description 08/23/2024 2:30 PM EDT Office Visit [facility] [address] [place] [address] Bibi Hernandez ANP [address] [place] [address] documented as of this encounter Visit Diagnoses Not on filedocumented in this encounter Care Teams Anesthesiology Teacher Relationship Specialty Start Date End Date Bibi Hernandez ANP [address] [place] [phone] PCP - General Family Medicine 11/27/20 documented as of this encounter
--- OUTSIDE RECORDS SUMMARY | 2024-07-05 15:27 | XMS_ITS ---
Author Organization [facility] Address [address] [place] [address] Care Team Providers Care Fruit Coordinator Name Role Phone Sujathakeith Buzz Zia Primary Care Provider [phone] Active Problems Problem Noted Date Diagnosed Date [...]
--- OUTSIDE RECORDS SUMMARY | 2024-07-05 15:27 | XMS_ITS | Encounter Summary ---
Author Organization [employer] Address [address] [facility] 7t [place] [address] Care Team Providers Care Supervisor Machine Setter Name Role Phone Bibi Hernandez Primary Care Provider [phone] Encounter Details Date Type Department Care Team ([facility] st Contact Info) Description 06/07/2024 Orders Only [facility] [address] [place], [place] [phone] Provider, MD Isabella Social History Tobacco Use [...] Description 08/23/2024 2:30 PM EDT Office Visit [facility] [address] [place], [place] [phone] Bibi Hernandez ANP [address] [place] [address] documented as of this encounter Procedures Procedure Name Priority Date/Time Associated Diagnosis Comments CT ABDOMEN PELVIS WO CONTRAST Routine 06/06/2024 1:37 PM EST documented in this encounter Results * CT Abdomen Pelvis w/o Contrast (06/06/2024 [...] documented as of this encounter Care Teams Supervisor Machine Setter Relationship Specialty Start Date End Date Bibi Hernandez ANP [address] [place] [phone] PCP - General Family Medicine 11/27/20 documented as of this encounter
== END 2024-07-05 12:54 | disposition home or self-care (01) ==
LOC: HO.ENCR 12:04
PROVIDERS: PCP Nurse Practitioner Primary Care; Visit Provider Registered Nurse Diabetes Educator
DX: E11.65 Type 2 diabetes mellitus with hyperglycemia (principal)

== ENCOUNTER → 2024-07-05 12:03 | Outpatient (BNVA) | payer MEDICARE, MEDICAID, SELFPAY | PROVIDERS: PCP Nurse Practitioner Primary Care; Visit Provider Registered Nurse Diabetes Educator | DX: E11.65 Type 2 diabetes mellitus with hyperglycemia (principal) | CPT/HCPCS: 99211 ==

== ENCOUNTER 2024-09-18 12:55 | Outpatient (AMB) | payer MEDICARE, MEDICAID, SELFPAY ==
--- NOTE | 2024-09-18 07:37 | A.OFFVIS_ITS ---
Vital Signs 09/18/24 12:57 Height 5 ft 4 in Weight 163 lb 2.273 oz BMI 28.0 BP 120/70 Blood Pressure Location Rt brachial Position Sitting Pulse 81 Pulse Source Pulse Oximeter Pulse Oximetry (%) 97 Oxygen Delivery Method Room Air Intake Visit Reasons: T2DM Intake Note: Patient presents today for a follow-up on Type 2 Diabetes Mellitus: Last Diabetic eye exam was on: DUE Last Podiatry exam was on: Does not see a Test Manager Most recent HbA1c: 7.7%, 09/13/2024 Random Glucose- 265 mg/dL, Today Pressure Sealer And Tester Required: Yes Pressure Sealer And Tester Language: Computer Technology Teacher Services: Pressure Sealer And Tester Offered & Declined Accompanied by: Daughter Allergies No Known Allergies [No Known Allergies*] Allergy (Verified 09/18/24 13:01) Medication List - Last Reconciled 09/18/24 by Ruby Avery NP amlodipine 10 mg PO DAILY apixaban (Eliquis) 5 mg PO BID aspirin 81 mg PO DAILY atorvastatin 40 mg PO BEDTIME blood-glucose,turkey pinner,cont (FreeStyle Yohannes 3 [place]) As directed cefuroxime axetil 250 mg PO BID 10 days cholecalciferol (vitamin D3) 50 mcg PO QAM 30 days enoxaparin mg subcut ezetimibe (Zetia) 10 mg PO DAILY FreeStyle Yohannes 3 Plus Sensor (blood-glucose sensor) As directed every 15 days NS FreeStyle Lite Strips (blood sugar diagnostic) test blood sugar four times daily NS insulin degludec 28 units (0.28 mL) subcut BEDTIME 30 days NS irbesartan 150 mg PO DAILY lancets (TRUEplus Lancets) As directed metformin 1,000 mg PO BID Mounjaro (tirzepatide) 2.5 mg (0.5 mL) subcut QWEEK 4 weeks NS pen needle, diabetic (UltiCare Pen Needle) As directed HPI Comments Details: 69 year female presenting for diabetic follow up. She she was last seen 06/14/24. Basal insulin has been changed from Lantus to Tresiba and that dose has been increased. Most recent A1c 7.7% 09/18/24%, previous was 8% on 04/26/2024 down from previous 8.7%. She was recently admitted to [facility] with a blood clot and is on Eliquis. Had urology procedure Had tube placed, referred to urology [place] for jermaine moon Initially diagnosed with T2DM approx 1999. She stopped Mounjaro 2.5 weekly as she was losing weight,had absolutely no appetite and felt poorly. Her daughter was trained on how to use freestyle. Procedure for insertion and removal, reader was placed in [place], showed patient how to interpret arrows in went to test with with glucometer. Target sugars reviewed. How to read history was reviewed Current prescribed: metformin 1000 mg b.id. Tresiba 28 units weekly Has not been checking sugars last few weeks Denies any interval hypoglycemia. Family history of T2DM in granfathers Type 2 DM . Reports eye exam is UTD. denies retinopathy. had cataract surgery Has neuropathy symptoms include: Numbness and tingling, denies pain or cramping does not see podiatry. has nephropathy, on ARB. Microalbumin 375 on 06/14/2023 PCP contacted for labs Has HLD, on statin. LDL 97 07/15/2023 Denies CAD, PVD,CVA Has prior h/o DVT Had diabetes education. [facility] Medical History (Updated 06/14/24 @ 09:18 by Ruby Avery NP) Blood clot in vein Hyperlipidemia HTN (hypertension) Diabetes type 2, uncontrolled Vitamin D deficiency Surgical History History of urostomy History of surgery S/P cystourethroscopy with dilation of urethral stricture H/O cystoscopy Hx of colostomy Family History (Updated 05/10/24 @ 09:21 by BJ Savage) Father No problems noted. Mother No problems noted. Social History Household Members: Children Alcohol intake: never Patient Tobacco Use Status: Former Tobacco user Second Hand Smoke Exposure: No Advance Directives Date on File: 05/30/20 service: No Current occupational status: unemployed Physical Exam Vital Signs: Last Vital Signs Pulse 81 09/18/24 12:57 BP 120/70 09/18/24 12:57 Pulse Ox 97 09/18/24 12:57 Oxygen Delivery Method Room Air 09/18/24 12:57 BMI result Body Mass Index 28.0 Const Other: Absence of Cushingoid features. Absence of acromegalic features. Neck exam reveals nl size thyroid about 15 gms. No thyroid nodules palpable. Heart S1 S2, Reg R/R. No M/R G. Skin exam reveals absence of vitiligo or acanthosis nigricans. No edema Visual exam of foot performed. No ulcerations or open lesions. No inter digit maceration or fissuring. No onychomycosis, no callouses. Sensation intact to monofilament exam. Vibratory sensation is normal with 128 Hz tuning fork. 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 She would like to start on low-dose Mounjaro. This had been stopped in the past because she felt she was losing too much weight but she would like to restart. Reduce Tresiba to 24 units Continue metformin Mounjaro 2.5 mg weekly Side effects of GLP-1 agonist were reviewed: Nausea, vomiting, diarrhea, headache, dehydration or low blood sugar. Rare acute kidney injury which can result from dehydration. Pancreatitis and gallstones. Contraindicated in MEN or family history of thyroid medullary cancer. Orders: Orders AMB Hemoglobin A1c Today E11.65 - Type 2 diabetes mellitus with hyperglycemia Medications: New Mounjaro (tirzepatide) 2.5 mg (0.5 mL) subcut QWEEK 4 weeks 2 mL 11RF NS Changed From insulin degludec 28 units (0.28 mL) subcut BEDTIME 30 days 9 mL 11RF NS To insulin degludec 24 units (0.24 mL) subcut BEDTIME 30 days 9 mL 11RF NS Coding Level of Care Code Est Pt Level 4 (77828) Complex EM visit Add On G2211 Diagnoses Uncontrolled type 2 diabetes mellitus with hyperglycemia E11.65 Glycemic state: with hyperglycemia Time Spent (min) 30 Comment Time spent reviewing labs/provider notes, face to face, chart doc
[2024-09-18 12:57] VITALS: BP 120/70; PULSE 81; O2SAT 97; BMI 28.0
[2024-09-18 13:08] LABS: Glucose, Whole Blood 265 mg/dL (60-115)
--- OUTSIDE RECORDS SUMMARY | 2024-09-18 15:09 | XMS_ITS | Encounter Summary ---
Author Organization [employer] Address [address] [facility] [address] [place] [address] Care Team Providers Care Heat Set Operator Name Role Phone Bibi Hernandez Primary Care Provider [phone] Reason for Visit * Reason Onset Date Comments Med Refill Dec recall 02/02/2023 Encounter Details Date Type Department Care Team ([facility] st Contact Info) Description 02/02/[address] [facility] [address] [place], [place] [phone] Nikky Perrin MD [address] [place] [address] Social History Tobacco Use Types Packs/Day Years Used Date Smoking Tobacco: Never Smokeless Tobacco: Never Alcohol Use Standard Drinks/Week Comments Not Currently 0 (1 standard drink = 0.6 oz pur e alcohol) Housing Stability Answer Date Recorded What is your housing situation today? I do not have housing (Staying with others, in a hotel, in a prison, living outside on the street, on a [...] Care Team (Late st Contact Info) Description 11/08/2024 10:30 AM EDT Office Visit [facility] [address] [place] [address] Bibi Hernandez ANP [address] [place] [address] documented as of this encounter Visit Diagnoses Not on filedocumented in this encounter Care Teams Heat Set Operator Relationship Specialty Start Date End Date Bibi Hernandez ANP [address] [place] [address] PCP - General Family Medicine 11/27/20 documented as of this encounter
== END 2024-09-18 13:41 | disposition home or self-care (01) ==
LOC: HO.ENCR 12:56
PROVIDERS: PCP Nurse Practitioner Primary Care; Visit Provider Nurse Practitioner Adult Health
DX: E11.65 Type 2 diabetes mellitus with hyperglycemia (principal)
CPT/HCPCS: 99214; G2211

== ENCOUNTER → 2024-09-18 12:55 | Outpatient (BNVA) | payer MEDICARE, MEDICAID, SELFPAY | PROVIDERS: PCP Nurse Practitioner Primary Care; Visit Provider Nurse Practitioner Adult Health | DX: E11.65 Type 2 diabetes mellitus with hyperglycemia (principal); Z79.4 Long term (current) use of insulin; Z79.84 Long term (current) use of oral hypoglycemic drugs | CPT/HCPCS: 82947; 83036; 99212 ==

== ENCOUNTER 2024-11-26 10:13 | Outpatient (REF) | payer MEDICARE, MEDICAID, SELFPAY ==
--- NOTE | ~2024-11-26 | MM_ITS ---
EXAMINATION: MM SCREENING DIGITAL BREAST TOMOSYNTHESIS, BILATERAL CLINICAL INFORMATION: Screening. Asymptomatic. COMPARISON: Comparison made to multiple prior, most recent April 01, 2023, and most remote September 15, 2017. TECHNIQUE: Digital breast tomosynthesis is performed in both the craniocaudal and mediolateral oblique views along with computer-aided detection (CAD). FINDINGS: BREAST COMPOSITION: There are scattered areas of fibroglandular density (ACR BI-RADS breast composition Category b). BILATERAL BREASTS: No significant masses, suspicious calcifications or other abnormalities are seen in either breast. MM/MM tomosynthesis screening BI IMPRESSION: BILATERAL BREASTS: Negative, no mammographic evidence of malignancy. Normal interval follow-up is recommended in 12 months. ASSESSMENT: BI-RADS 1 - Negative RECOMMENDATION: Routine annual mammography screening. FOLLOW-UP: 1 year F/U This examination should not preclude the clinical evaluation of a suspicious palpable abnormality. This patient's information was entered into a reminder system with a target due date for their next mammogram. Electronically signed by: Aren Shine MD 11/27/2024 09:14 PM EDT
--- OUTSIDE RECORDS SUMMARY | 2024-11-26 11:10 | XMS_ITS | Encounter Summary ---
Author Organization [employer] Address [address] [facility] [address] [place] [address] Care Team Providers Care Forestry Adviser Name Role Phone Bibi Hernandez JOSE Primary Care Provider [phone] Ruby Avery Unavailable Reason for Visit * Reason Onset Date Comments Med Refill Dec recall 02/02/2023 Encounter Details Date Type Department Care Team ([facility] st Contact Info) Description 02/02/2023 Refill [facility] [address] [place], [place] [phone] Nikky Perrin MD [address] [place] [address] Social History Tobacco Use Types Packs/Day Years Used Date Smoking Tobacco: Never Smokeless Tobacco: Never Alcohol Use Standard Drinks/Week Comments Not Currently 0 (1 standard drink = 0.6 oz pur e alcohol) Housing Stability Answer Date Recorded What is your housing situation today? I do not have housing (Staying with others, in a hotel, in a nursing home, living outside on the street, on a [...] Care Team (Late st Contact Info) Description 02/08/2025 9:00 AM EDT Office Visit [facility] [address] [place] [address] Bibi Hernandez ANP [address] [place] [address] documented as of this encounter Visit Diagnoses Not on filedocumented in this encounter Care Teams Forestry Adviser Relationship Specialty Start Date End Date Bibi Hernandez ANP [address] [place] [address] PCP - General Family Medicine 11/27/20 Ruby Avery [address] [address] Endocrinology 11/07/24 documented as of this encounter
--- OUTSIDE RECORDS SUMMARY | 2024-11-26 11:10 | XMS_ITS | Encounter Summary ---
Author Organization [facility] Address [address] [place] [address] Care Team Providers Care Event Sales Assistant Name Role Phone SujathakeithBuzz Primary Care Provider [phone] Encounter Details Date Type Department Care Team (Late st Contact Info) Description 02/15/2020 Orders Only [facility] [address] [place], [place] [phone] Efrem Rojas MD [address] [place], [place] [phone] Social History Tobacco Use Types Packs/Day Years [...] documented as of this encounter Care Teams Event Sales Assistant Relationship Specialty Start Date End Date KobePhilippeBuzz Zia [address] [place] [address] PCP - General Nurse Practitioner 06/13/19 documented as of this encounter
== END 2024-11-26 10:14 | disposition home or self-care (01) ==
LOC: HO.MAMMO 10:13
PROVIDERS: PCP Nurse Practitioner Primary Care; Visit Provider Nurse Practitioner Primary Care
DX: Z12.31 Encounter for screening mammogram for malignant neoplasm of breast (principal)
CPT/HCPCS: 77063; 77067

== ENCOUNTER → 2024-11-26 10:15 | Outpatient (BNV) | payer MEDICARE, MEDICAID, SELFPAY | PROVIDERS: PCP Nurse Practitioner Primary Care; Visit Provider Radiology Body Imaging | DX: Z12.31 Encounter for screening mammogram for malignant neoplasm of breast (principal) | CPT/HCPCS: 77063; 77067 ==

== ENCOUNTER 2024-12-21 10:30 | Outpatient (AMB) | payer MEDICARE, MEDICAID, SELFPAY ==
[2024-12-21 10:31] VITALS: BP 132/62; PULSE 82; O2SAT 97; BMI 29.1
--- NOTE | 2024-12-21 10:31 | A.OFFVIS_ITS ---
Vital Signs 3 12/21/24 10:31 Height 5 ft 4 in Weight 169 lb 8.568 oz BMI 29.1 BP 132/62 Blood Pressure Location Lt brachial Position Sitting Pulse 82 Pulse Source Pulse Oximeter Pulse Oximetry (%) 97 Oxygen Delivery Method Room Air Intake Visit Reasons: DM Intake Note: Patient present today for Type 2 Diabetes Mellitus Last Diabetic eye exam: Patient has upcoming appt but unsure of date Last Podiatry Visit: Doesn't have one Random Glucose: 253 mg/dl HgA1C: 8.1% Aviation Electrician Required: Yes Aviation Electrician Language: Night Custodian Services: Aviation Electrician Offered & Declined Accompanied by: Daughter Allergies No Known Allergies (No Known Allergies*) Allergy (Verified 12/21/24 10:37) Medication List - Last Reconciled 12/21/24 by Rossana Quintero MD amlodipine 10 mg PO DAILY apixaban (Eliquis) 5 mg PO BID aspirin 81 mg PO DAILY atorvastatin 40 mg PO BEDTIME blood-glucose,post acute care nurse practitioner,cont (FreeStyle Yohannes 3 [place]) As directed cefuroxime axetil 250 mg PO BID 10 days cholecalciferol (vitamin D3) 50 mcg PO QAM 30 days enoxaparin mg subcut ezetimibe (Zetia) 10 mg PO DAILY FreeStyle Yohannes 3 Plus Sensor (blood-glucose sensor) As directed every 15 days NS FreeStyle Lite Strips (blood sugar diagnostic) test blood sugar four times daily NS insulin degludec 24 units (0.24 mL) subcut BEDTIME 30 days NS irbesartan 150 mg PO DAILY lancets (TRUEplus Lancets) As directed metformin 1,000 mg PO BID Mounjaro (tirzepatide) 2.5 mg (0.5 mL) subcut QWEEK 4 weeks NS pen needle, diabetic (UltiCare Pen Needle) As directed HPI Comments Details: 69 year female presenting for coming in for follow up of type 2 diabetes mellitus. Here today with daughter Harini Last seen September 2024 by Ruby Fajardo APRN. Initially diagnosed with T2DM approx 1999. Prior meds Basal insulin has been changed from Lantus to Tresiba and that dose has been increased. She stopped Mounjaro 2.5 weekly as she was losing weight,had absolutely no appetite and felt poorly. Restarted September 2024. Current prescribed: metformin 1000 mg b.id. Tresiba 25 units at bedtime (sometimes patient is saying she is taking it twice a day?) Mounjaro 2.5 mg weekly Fridays Most recent A1c 8.1% POC 12/21/24 7.7% 09/18/24%, 8% on 04/26/2024 down from previous 8.7%. ALICE Appe 3 downloaded from December 08, 2024 to December 21, 2024 Time CGM active 86% Average glucose 165 mg/dL G NJ 7.3% Glucose variability 28.6% Within target range 69% High 24% Very high 7% Low 0% Very low 0% Interpretation: Much improved glycemic control however still has postprandial spikes after breakfast at 09:00 and between 15:26. Family history of T2DM in granfathers Type 2 DM . Reports eye exam is UTD. denies retinopathy. had cataract surgery , has appt coming up Has neuropathy symptoms include: Numbness and tingling, denies pain or cramping does not see podiatry. has nephropathy, on irbesartan 150 mg daily Microalbumin 375 on 06/14/2023 PCP contacted for labs Has HLD, on atorvastatin 40 mg daily, Zetia 10 mg daily LDL 97 07/15/2023 Denies CAD, PVD,CVA Has prior h/o DVT, on Eliquis Had diabetes education. Physical exam General: sitting comfortably in no acute distress HEENT: normocephalic/atraumatic, Cardiac: normal heart sounds Pulm: normal breath sounds B/L, no added breath sounds Abd: not distended, no tenderness Extremities: no edema, no signs of myxedema Laboratory Tests 03/16/23 06/14/23 07/15/23 18:22 09:05 13:03 Hgb 10.9 L Hct 34.5 L Creatinine 1.22 Estimated GFR 44 Glucose (Clinic) Hgb A1c (Clinic) AST 21 ALT 15 Triglycerides 162 H Cholesterol 171 LDL Cholesterol, Calc 97 HDL Cholesterol 42 Urine Creatinine 87.63 Urine Microalbumin 378.0 Microalb/Creat Ratio 431.3 H 09/18/24 09/18/24 13:03 13:11 Hgb Hct Creatinine Estimated GFR Glucose (Clinic) 265 H Hgb A1c (Clinic) 7.7 H AST ALT Triglycerides Cholesterol LDL Cholesterol, Calc HDL Cholesterol Urine Creatinine Urine Microalbumin Microalb/Creat Ratio [facility] Medical History (Updated 06/14/24 @ 09:18 by Ruby Avery NP) Blood clot in vein Hyperlipidemia HTN (hypertension) Diabetes type 2, uncontrolled Vitamin D deficiency Surgical History History of urostomy History of surgery S/P cystourethroscopy with dilation of urethral stricture H/O cystoscopy Hx of colostomy Family History (Updated 05/10/24 @ 09:21 by BJ Savage) Father No problems noted. Mother No problems noted. Social History Household Members: Children Alcohol intake: never Patient Tobacco Use Status: Former Tobacco user Second Hand Smoke Exposure: No Advance Directives Date on File: 05/30/20 service: No Current occupational status: unemployed Physical Exam Vital Signs: Last Vital Signs Pulse 82 12/21/24 10:31 BP 132/62 12/21/24 10:31 Pulse Ox 97 12/21/24 10:31 Oxygen Delivery Method Room Air 12/21/24 10:31 BMI result Body Mass Index 29.1 Office Procedures Glucose Monitoring Details Details: See [facility] [address] - Glucose monitoring, continuous-physician I&R Procedure code (CPT) selection complete Results AMB Hemoglobin A1c 2 AMB Hemoglobin A1c 8.1 % Last Edit by BJ Tillman on 12/21/24 10:52 Results Reviewed Results Reviewed: Laboratory Last Values Glucose (Clinic) 253 mg/dL (60-115) H 12/21/24 10:39 Hgb A1c (Clinic) 8.1 % (4.0-6.0) H 12/21/24 10:41 Assessment & Plan Assessment & Plan (1) Diabetes type 2, uncontrolled: Code(s): E11.65 - Type 2 diabetes mellitus with hyperglycemia Category: Medical Qualifiers: Glycemic state: with hyperglycemia Qualified Code(s): E11.65 - Type 2 diabetes mellitus with hyperglycemia Plan: 69-year-old female with 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 At this point I will go up on her Mounjaro. It is very unclear how she has been taking the Tresiba patient tells me she has been taking 25 units on days 1 day and some days twice daily. I told her she can not just move around her doses like that and she has to do this under supervision. As this can result in severe hypoglycemia or hyperglycemia when we do not know what exactly she is doing. Daughter endorses she has some memory issues and that is why she might be doing that. We might have to titrate up her Tresiba if she is indeed requiring 50 units some days, however for now I told her to just go down to 25 units at bedtime as she was prescribed. Plan: -Tresiba 25 units at bedtime -metformin 1000 b.i.d. -increase Mounjaro to 5 mg weekly injection -no history of retinopathy, has a upcoming your eye appointment will patient -has a history of neuropathy -has microalbuminuria and a history of CKD, no recent labs done, ordered labs -follow up in 2-3 months Plan I spent 30 minutes in reviewing the record, seeing the patient and documenting in the medical record. Orders: Orders 2 AMB Hemoglobin A1c Today E11.65 - Type 2 diabetes mellitus with hyperglycemia, Z13.9 - Encounter for screening, unspecified Microalbumin, Random (w Creat) Today E11.65 - Type 2 diabetes mellitus with hyperglycemia, E78.2 - Mixed hyperlipidemia Vitamin B12 Today E11.65 - Type 2 diabetes mellitus with hyperglycemia, E78.2 - Mixed hyperlipidemia Lipid Panel Today E11.65 - Type 2 diabetes mellitus with hyperglycemia, E78.2 - Mixed hyperlipidemia Creatinine Today E11.65 - Type 2 diabetes mellitus with hyperglycemia, E78.2 - Mixed hyperlipidemia Aspartate Amino Transferase Today E11.65 - Type 2 diabetes mellitus with hyperglycemia, E78.2 - Mixed hyperlipidemia Alanine Aminotransferase Today E11.65 - Type 2 diabetes mellitus with hyperglycemia, E78.2 - Mixed hyperlipidemia Complete Blood Count no Diff Today E11.65 - Type 2 diabetes mellitus with hyperglycemia, E78.2 - Mixed hyperlipidemia AMB Glucose Monitoring Today E11.65 - Type 2 diabetes mellitus with hyperglycemia Medications: New 2 tirzepatide (Mounjaro) 5 mg (0.5 mL) subcut QWEEK 2 mL 5RF Discontinued 2 Mounjaro (tirzepatide) Discontinued Reason: Doctor's Order 2.5 mg (0.5 mL) subcut QWEEK 4 weeks 2 mL 11RF NS Patient Instructions: Increase Mounjaro to 5 mg weekly injection Continue metforming twice daily Continue Tresiba insulin 25 units at bedtime Do fasting blood work and urine prior to next appointment Coding Level of Care Code Est Pt Level 4 (12302) Diagnoses Uncontrolled type 2 diabetes mellitus with hyperglycemia E11.65 Glycemic state: with hyperglycemia CPT Codes Details - CPT: 50254 - Glucose monitoring, continuous-physician I&R ([id number]) Time Spent (min) 30
[2024-12-21 10:42] LABS: Glucose, Whole Blood 253 mg/dL (60-115)
--- OUTSIDE RECORDS SUMMARY | 2024-12-21 12:07 | XMS_ITS | Encounter Summary ---
Author Organization [facility] Address [address] [place] [address] Care Team Providers Care Ceo And Co Founder Name Role Phone KobeBuzz Primary Care Provider [phone] Encounter Details Date Type Department Care Team (Late st Contact Info) Description 02/15/2020 Orders Only [facility] [address] [place], [place] [phone] Efrem Rojas MD [address] [place], [place] [phone] Social History Tobacco Use Types Packs/Day Years [...] documented as of this encounter Care Teams Ceo And Co Founder Relationship Specialty Start Date End Date Kobe Buzz Zia [address] [place] [address] PCP - General Nurse Practitioner 06/13/19 documented as of this encounter
--- OUTSIDE RECORDS SUMMARY | 2024-12-21 12:07 | XMS_ITS | Clinical Summary ---
Author Organization [employer] Address [address] [facility] 7t [place] [address] Care Team Providers Care Health Care Liaison Name Role Phone Raz Richardson Primary Care Provider [phone] Ruby Avery Unavailable Allergies Active Allergy Reactions Criticality Noted Date Comments Acetaminophen Hives 01/01/2013 Iodinated Contrast Media Rash Medium 09/07/2019 Pt stated she gets a rash all over her body as well nausea at times Oxycodone Hives 01/01/2013 Medications metFORMIN (Glucophage) 1000 MG tablet Take 1 tablet by mouth every 12 (twelve) hours. Active Tresiba FlexTouch 100 UNIT/ML injection Inject 28 Units under the skin Once per day. 2 Active TRUEplus Lancets 33G miscIndications:Typ e 2 diabetes mellitus without complications (CMS/HCC) TEST BLOOD SUGAR 4 TIMES A DAY 100 each 4 Active Multiple Vitamins-Minerals (CertaVite/Antioxid ants) tablet TAKE 1 TABLET BY MOUTH EVERY MORNING 90 tablet 3 4 Active Aspirin Adult Low Strength 81 MG EC tablet TAKE 1 TABLET BY MOUTH AT BEDTIME 90 tablet 3 4 Active BD Pen Needle Nila U/F 32G X 4 MM misc TEST BLOOD SUGAR 4 TIMES A DAY DIRECTED 100 each 4 Active allopurinol (Zyloprim) 100 MG tablet TAKE 1 TABLET BY MOUTH EVERY MORNING 30 tablet 5 5 Active citalopram (CeleXA) 20 MG tablet TAKE 1 TABLET BY MOUTH EVERY MORNING 30 tablet 5 5 Active FREESTYLE LITE test stripIndications:Ty pe 2 diabetes mellitus without complications (CMS/HCC) TEST BLOOD SUGAR FOUR TIMES DAILY 200 strip 11 5 Active Eliquis 2.5 MG tablet Take 2.5 mg by mouth 2 times daily. 5 Active irbesartan (Avapro) 150 MG tablet TAKE 1 TABLET BY MOUTH EVERY MORNING 90 tablet 3 5 Active Continuous Glucose Sensor (FreeStyle Yohannes 3 Plus Sensor) [facility] [place] DIRECTED TO TEST BLOOD SUGAR CHANGE EVERY 15 DAYS 5 Active Mounjaro 2.5 MG/0.5ML solution auto-injector Inject 2.5 mg under the skin every 7 (seven) days. Active atorvastatin (Lipitor) 40 MG tabletIndications:T ype 2 diabetes mellitus with hyperlipidemia (CMS/HCC) (CMS/HCC) Take 1 tablet (40 mg) by mouth at bedtime. 90 tablet 3 5 Active amLODIPine (Norvasc) 10 MG tablet TAKE 1 TABLET BY MOUTH AT BEDTIME 90 tablet 3 5 Active Active Problems Problem Noted Date Diagnosed Date Deep vein thrombosis (DVT) of left iliofemoral v ein 04/18/2024 Overview (07/08/2024): Images from the original note were not included. She developed a macular rash to L santos, was switched to eliquis 2.5mg BID from lovenox. Rash did not respond to topical steroid per [facility] office note 05/22/24 Abnormal vaginal bleeding 09/01/2022 Cystitis 09/01/2022 Kidney [...] Encounters Date Type Department Care Team Description 12/21/2024 Orders Only GENERIC EXTERNAL DATA DEPARTMENT Provider, Generic External Data 11/29/2024 Abstract [facility] [address] [place] [address] Dai Rubin [place] 11/26/2024 Orders Only [facility] [address] [place] [address] [place] [address] Raz Richardson ANP 11/15/[address] [address] Raz Richardson ANP 11/08/2024 10:30 AM EDT Office Visit [address] [address] Raz Richardson ANP Deep vein thrombosis (DVT) of left iliofemoral vein (CMS/HCC) (Primary Dx); Type 2 diabetes mellitus with hyperlipidemia (CMS/HCC) (CMS/HCC); Essential hypertension; Colostomy present (CMS/HCC); Screening mammogram for breast cancer; Hospital discharge follow-up 11/08/2024 Travel 11/08/[address] [address] Raz Richardson ANP 11/07/[address] [address] Raz Richardson ANP chart prep from Last 3 Months Immunizations Immunization Administration Dates Next Due Influenza High-dose Quadriva lent Preservative Free 01/25/2022,01/05/2021 Influenza injectable quadriv alent IIV4 with preservative 01/15/2016 Influenza injectable quadriv alent preservative free 05/31/2020,01/26/2017 Influenza, IIV3, injectable 04/15/2014, 1,01/12/2010 Influenza, Split (incl. rené f[place] surface antigen) 01/11/2013,03/21/2012 Pfizer Covid-19 Vaccine 12+ Bivalent 07/05/2022 Pneumococcal Conjugate PCV 20 11/08/2024 Pneumococcal Polysaccharide PPSV23 02/11/2011, TD (adult), 2 Lf tetanus tox oid, preservative free, adsorbed 02/23/2000 Tdap 11/08/2024,04/15/2014 Zoster, live 09/29/2016 Social History Tobacco Use Types Packs/Day Years Used Date Smoking Tobacco: Never Smokeless Tobacco: Never Tobacco Cessation:Counseling Given: Not Answered Alcohol Use Standard Drinks/Week Comments Not Currently 0 (1 standard drink = 0.6 oz pur e alcohol) Depression Answer Date Recorded Patient Health Questionnaire-9 Score 8 11/08/2024 Patient Health Questionnaire-9 Score 8 11/08/2024 Last PHQ-9: Questionnaire Data Not on file 0 11/08/2024 Housing Stability Answer Date Recorded What is your housing situation today? I have sandi mina 11/28/[address] you li ve. Do you have problems with any of the following? Not on file 11/28/2024 Food Insecurity Answer Date Recorded Within the past 12 months, y ou worried that your food would run out before you got money to buy more: Never True 11/08/2024 Within the past 12 months,th e food [...] Date Recorded Patient Health Questionnaire-2 Score 2 11/08/2024 Internet Access Answer Date Recorded Internet Access [...] Sign Reading Time Taken Comments Blood Pressure 144/82 11/08/2024 10:35 AM EDT Pulse 94 11/08/2024 10:35 AM EDT Temperature 37.2 C (98.9 F) 12/13/2023 1:25 PM EDT Respiratory Rate 16 11/08/2024 10:35 AM EDT Oxygen Saturation 98% 12/13/2023 1:25 PM EDT Inhaled Oxygen Concentration - - Weight 75.8 kg (167 lb) 11/08/2024 10:35 AM EDT Height 162.6 cm (5' 4 ) 11/08/2024 10:35 AM EDT Body Mass Index 28.67 11/08/2024 10:35 AM EDT Plan of Treatment Upcoming Encounters Date Type Department Care Team (Late st Contact Info) Description 02/08/2025 9:00 AM EDT Office Visit [facility] [address] [place], [place] [phone] Raz Richardson, ANP [address] [place], [place] [phone] Health Maintenance Due Date Last Done Comments CT Colonography 1955 FIT DNA/Cologuard 1955 FIT 1955 FOBT 1955 Sigmoidoscopy 1955 Hepatitis C Screening 1973 RSV Patients and Patients Aged 60 years or older (1 - Risk 60-74 years 1-dose series) 2015 Zoster Vaccines (2 of 3) 11/24/2016 09/29/2016 Colonoscopy 11/01/2021 11/01/2016 Colorectal Cancer Screening 11/01/2021 Diabetes: Urine Protein Screening 06/13/2024 06/14/2023, 07/17/2021 Lipid Panel 06/13/2024 06/14/2023, 02/15/2020 SDOH Screening 11/27/2024 11/28/2023 COVID-19 Vaccine ( season) 2024 07/05/2022, 04/14/2021, 07/19/2020 Influenza Vaccine (#1) 2024 , 03/24/2024, 01/25/2022, Additional history exists Diabetes: Hemoglobin A1C 02/08/2025 025, 12/13/2023, 06/16/2023, Additional history exists Eye Exam 09/01/2025 09/02/2023 Alcohol/Substance Use Screening 11/08/2025 11/08/2024 Depression Screening 11/08/2025 11/08/2024, 11/09/19 25 Diabetes: Foot Exam 11/08/2025 11/08/2024, 11/08/2024, 11/08/2024, Additional history exists Tobacco Screening 11/08/2025 11/08/2024 Mammogram 11/26/2025 11/26/2024, 11/09, 04/01/2023, Additional history exists DTaP/Tdap/Td Vaccines (3 - Td or Tdap) 11/08/2034 11/08/2024, 04/15/2014, 02/23/2000, Additional history exists Pneumococcal Vaccine: 50+ Years Completed 11/08/2024, 02/11/2011, 02/22/2006 HIB Vaccines Aged Out No longer eligi [...] patient's age to complete this topic Meningococcal B Vaccine Aged Out No l onger eligible based on patient's age to complete [...] Associated Diagnosis Comments GLUCOSE, WHOLE BLOOD Routine 12/21/2024 10:39 AM EDT BI MAMMOGRAM SCREENING TOMOSYNTHESIS BILATERAL Routine 11/26/2024 10:18 AM EDT HM MAMMOGRAPHY Routine 11/26/2024 POCT GLYCATED HEMOGLOBIN, TOTAL Routine 11/08/2024 10:38 AM EDT Type 2 diabetes mellitus with hyperlipidemia (CMS/HCC) (CMS/HCC) POCT GLUCOSE Routine 11/08/2024 10:37 AM EDT Type 2 diabetes mellitus with hyperlipidemia (CMS/HCC) (CMS/HCC) ALBUMIN, RANDOM URINE W/CREATININE Routine 06/14/2023 9:05 AM EST LIPID PANEL, STANDARD Routine 06/14/2023 9:05 AM EST HM COLONOSCOPY Routine 11/01/2016 from Last 3 Months or Most Recently Relevant to Health Maintenance Results * (ABNORMAL) Glucose, Whole Blood (12/21/2024 10:39 AM EDT) Glucose, Whole Blood 253(H) 60 - 115 mg/dL [facility] Comment:METER #: [id number] 0Testing performed in the Endocrinology Department [address] , [address], [place]. 12/21/2024 10:3 9 AM EDT 12/21/2024 10:42 AM EDT us Generic External Data Provider LAB BLOOD ORDERAB LES Final Result [facility] [address] [place] [address] [phone] * BI Mammogram Screening Tomosynthesis Bilateral (11/26/2024 10:18 AM EDT) Anatomical Region Laterality Modality Breast Bilateral Mammography 11/26/2024 10:1 8 AM EDT Narrative 11/27/2024 9:16 PM EDT [facility] [address] [place] [address] Mammography Report Signed Patient: Chivo Conde MR#: [id number] [birth year] : 1955 Acct:[id number] Age/Sex: 69 / F ADM Date: 11/26/24 Loc: HO.MAMMO Attending Dr: Raz Richardson NP Ordering Physician: RAZ RICHARDSON NP Results: 1Negative Date of Service: 11/26/24 Follow Up: 1 Year From Orig inal Mammogram Procedure(s): MM tomosynthesis screening BI Accession Number(s): [id number] cc: RAZ RICHARDSON NP EXAMINATION: MM SCREENING DIGITAL BREAST TOMOSYNTHESIS, BILATERAL CLINICAL INFORMATION: Screening. Asymptomatic. COMPARISON: Comparison made to multiple prior, most recent April 01, 2023, and most remote September 15, 2017. TECHNIQUE: Digital breast tomosynthesis is performed in both the craniocaudal and mediolateral oblique views along with computer-aided detection (CAD). FINDINGS: BREAST COMPOSITION: There are scattered areas of fibroglandular density (ACR BI-RADS breast composition Category b). BILATERAL BREASTS: No significant masses, suspicious calcifications or other abnormalities are seen in either breast. MM/MM tomosynthesis screening BI IMPRESSION: BILATERAL BREASTS: Negative, no mammographic evidence of malignancy. Normal interval follow-up is recommended in 12 months. ASSESSMENT: BI-RADS 1 - Negative RECOMMENDATION: Routine annual mammography screening. FOLLOW-UP: 1 year F/U This examination should not preclude the clinical evaluation of a suspicious palpable abnormality. This patient's information was entered into a reminder system with a target due date for their next mammogram. Electronically signed by: Aren Shine MD 11/27/2024 09:14 PM EDT RP Dictated By: Aren Shine MD Signed By: <Electronically signed by Aren Shine MD in OV> 11/27/244 DD/ 1018 TD/TT: 11/26/24 1032 Worm Grower: Procedure Note Donotuseinterpreter, Image - 11/27/2024 [facility] [address] [place] [address] Mammography Report Signed Patient: Alecia Conde#: [id number] 20 : 5Acct:[id number] Age/Sex: 69 / FADM Date: 11/26/24 Loc: CB.MAMMO Attending Dr: Raz Richardson NP Ordering Physician: RAZ RICHARDSON NPResults: 1Negative Date of Service: 11/26/24Follow Up: 1 Year From Orig inal Mammogram Procedure(s): MM tomosynthesis screening BI Accession Number(s): [id number] cc: RAZ RICHARDSON NP EXAMINATION: MM SCREENING DIGITAL BREAST TOMOSYNTHESIS, BILATERAL CLINICAL INFORMATION: Screening. Asymptomatic. COMPARISON: Comparison made to multiple prior, most recent April 01, 2023, and most remote September 15, 2017. TECHNIQUE: Digital breast tomosynthesis is performed in both the craniocaudal and mediolateral oblique views along with computer-aided detection (CAD). FINDINGS: BREAST COMPOSITION: There are scattered areas of fibroglandular density (ACR BI-RADS breast composition Category b). BILATERAL BREASTS: No significant masses, suspicious calcifications or other abnormalities are seen in either breast. MM/MM tomosynthesis screening BI IMPRESSION: BILATERAL BREASTS: Negative, no mammographic evidence of malignancy. Normal interval follow-up is recommended in 12 months. ASSESSMENT: BI-RADS 1 - Negative RECOMMENDATION: Routine annual mammography screening. FOLLOW-UP: 1 year F/U This examination should not preclude the clinical evaluation of a suspicious palpable abnormality. This patient's information was entered into a reminder system with a target due date for their next mammogram. Electronically signed by: Aren Shine MD 11/27/2024 09:14 PM EDT RP Dictated By: Aren Shine MD Signed By: <Electronically signed by Aren Shine MD in OV> 11/27/24 2114 DD/ 1018 TD/TT: 11/26/24 1032 Worm Grower: Raz Richardson ANP IMG BI PROCEDURES Final Result * Mammography (11/26/2024) Mammogram BIRADS 1 Normal, Abnormal, BIRADS 1 , BIRADS 2 Anatomical Region Laterality Modality Other 11/26/2024 Historical Provider HEALTH MAINTENANCE Final Result * (ABNORMAL) POCT HGB A1C (11/08/2024 10:38 AM EDT) Hemoglobin A1C 8.2(A) 4.0 - 5.7 % QC Media Lot # [id number] Lot# Expiration Date [id number] Blood 11/08/2024 10:3 8 AM EDT Raz Richardson ANP POINT OF CARE TEST ENTER/EDIT OR DERABLES Final Result * (ABNORMAL) POCT Glucose (11/08/2024 10:37 AM EDT) Glucose Blood, POC 262(A) 60 - 200 mg/dL QC Media Lot # [id number] Lot# Expiration Date [id number] Blood Capillary blood specimen / Unknown 11/08/2024 10:37 AM EDT Raz Richardson ANP POINT OF CARE TEST ENTER/EDIT OR DERABLES Final Result * (ABNORMAL) Albumin, Random Urine W/Creatinine (06/14/2023 9:05 AM EST) Creatinine, Urine 87.63 mg/dL [facility] Microalbumin Urine 378.0 mg/L [facility] Microalbum Creatinine Ratio Ur 431.3(H) <30 ug/mg cr [facility] Comment:Albumin/Creatinine R atio Reference Ranges: Normal: < 30 ug/mg creatinine Microalbuminuria: 30 - 300 ug/mg creatinineClinical Albuminuria: > 300 ug/mg creatinine 06/14/2023 9:05 AM EST 06/14/2023 10:01 AM EST Generic External Data Provider LAB URINE ORDERAB LES Final Result [facility] [address] [place] [phone] * (ABNORMAL) Lipid Panel, Standard (06/14/2023 9:05 AM EST) Triglycerides 188(H) <150 mg/dL [facility] Comment:Desirable Triglyceri de: less than 150 mg/dLBorderline High Triglyceride 150-199 mg/dLHigh Triglyceride: 200-499 mg/dLVery High Triglyceride: greater than or equal to 5OO mg/dL Cholesterol 200(H) <200 mg/dL [facility] Comment:Desirable Cholestero l: less than 200 mg/dLBorderline High Cholesterol: 200-239 mg/dLHigh Cholesterol: greater than 239 mg/dL LDL Cholesterol Calculated 125(H) <100 mg/dL [facility] Comment:Desirable LDL: less than 100 mg/dLNear Optimal/Above Optimal LDL: 110- 129 mg/dLBorderline High LDL: 130-159 mg/dLHigh LDL: 160-189 mg/dLVery High LDL: greater than or equal to 190 mg/dL HDL Cholesterol 38(L) >40 mg/dL [facility] Comment:Desirable HDL: great er than 40 mg/dL Note: This HDL assay may give artificially low results in patients with liver disease. 06/14/2023 9:05 AM EST 06/14/2023 9:05 AM EST us Generic External Data Provider LAB BLOOD ORDERAB LES Final Result [facility] [address] [place] [address] [phone] * Colonoscopy (11/01/2016) Colonoscopy Normal Normal 11/01/2016 Historical Provider HEALTH MAINTENANCE Final Result from Last 3 Months or Most Recently Relevant to Health Maintenance Insurance [facility] STANDARD MEDICARE Care Teams Health Care Liaison Relationship Specialty Start Date End Date Raz Richardson ANP [address] [place] [phone] PCP - General Family Medicine 11/27/20 Ruby Avery [address] [place] [address] Endocrinology 11/07/24
--- OUTSIDE RECORDS SUMMARY | 2024-12-21 12:07 | XMS_ITS | Encounter Summary ---
Author Organization [employer] Address [address] [facility] 7t [place] [address] Care Team Providers Care Equipment Operating Engineer Name Role Phone Bibi Hernandez JOSE Primary Care Provider [phone] Ruby Avery Unavailable Encounter Details Date Type Department Care Team ([facility] Contact Info) Description 03/23/2024 Orders Only [facility] [address] [place] [address] Provider, MD Isabella Social History Tobacco Use [...] Description 02/08/2025 9:00 AM EDT Office Visit [facility] [address] [place] [address] Bibi Hernandez ANP [address] [place] [address] documented as of this encounter Procedures Procedure [...] documented as of this encounter Care Teams Equipment Operating Engineer Relationship Specialty Start Date End Date Bibi Hernandez ANP [address] [place] [address] PCP - General Family Medicine 11/27/20 Ruby Avery [address] [address] Endocrinology 11/07/24 documented as of this encounter
--- OUTSIDE RECORDS SUMMARY | 2024-12-21 12:07 | XMS_ITS | Encounter Summary ---
Author Organization [employer] Address [address] [facility] 7t [place] [address] Care Team Providers Care Reactor Service Operator Name Role Phone Bibi Hernandez JOSE Primary Care Provider Ruby Avery Unavailable Reason for Visit * Reason Onset Date Comments Med Refill Dec recall 02/02/2023 Encounter Details Date Type Department Care Team ([facility] st Contact Info) Description 02/02/2023 Refill [facility] [address] [place], [place] [phone] Nikky Perrin MD [address] [place] [address] Social History Tobacco Use Types Packs/Day Years [...] Description 02/08/2025 9:00 AM EDT Office Visit [facility] [address] [place] [address] Bibi Hernandez ANP [address] [place] [address] documented as of this encounter Visit Diagnoses Not on filedocumented in this encounter Care Teams Reactor Service Operator Relationship Specialty Start Date End Date Bibi Hernandez ANP [address] [place] [address] PCP - General Family Medicine 11/27/20 Ruby Avery [address] [address] Endocrinology 11/07/24 documented as of this encounter
--- OUTSIDE RECORDS SUMMARY | 2024-12-21 12:07 | XMS_ITS | Encounter Summary ---
Author Organization [facility] Address [address] [place] [address] Care Team Providers Care Binitrotoluene Operator Name Role Phone KobeBuzz Primary Care Provider Encounter Details Date Type Department Care Team (Late st Contact Info) Description 02/19/2020 Orders Only [facility] Interventional Radiology [address] [place] [address] Rhea Monahan MD [address] [place] [address] Social History Tobacco Use Types Packs/Day Years [...] documented as of this encounter Care Teams Binitrotoluene Operator Relationship Specialty Start Date End Date Buzz Bullock [address] [place] [address] PCP - General Nurse Practitioner 06/13/19 documented as of this encounter
--- OUTSIDE RECORDS SUMMARY | 2024-12-21 12:07 | XMS_ITS | Clinical Summary ---
Author Organization [facility] Address [address] [place] [address] Care Team Providers Care A/C Technician Name Role Phone Buzz Bullock Primary Care Provider [phone] Allergies Active Allergy Reactions Criticality Noted Date [...] 82 04/08/2021 2:18 PM EST Temperature 36.3 C (97.4 F) 04/08/2021 2:18 PM EST Respiratory Rate 18 09/11/2019 1:40 PM EDT [...] 12/09/2020 , 09/11/2019, 09/10/2019, Additional history exists Alcohol/Substance Use Screening 04/11/2024 Depression Screening and Follow-Up 04/11/2024 Fall Risk Screening 04/11/2024 Health Care Proxy Review 04/11/2024 Social Drivers of Health Annual Screening 04/11/2024 DTaP,Tdap,and Td Vaccines (2 - Td or Tdap) 04/15/2024 04/15/2014, 02/23/2000 Influenza Vaccine (#1) 2024 , 05/31/2020, 01/26/2017, Additional history exists Statin Therapy Completed 07/04/2019 Hepatitis B Vaccines Aged Out No long er eligible based on patient's age to complete this topic Medical Devices Implanted Type Area Esters And Emulsifiers Supervisor Device Identifier Shelf Expiration Date Model / Serial / Lot Stent Diversion J Single 7fr X 70mm - [id number] - [id number] Implanted:Qty: 1 on 08/30/2019 by Matt Adhikari MD at [facility] Stent [employer]LYMPUS 03/16/2021 [id number] / [id number] / [id number] Stent Diversion J Single 7fr X 70mm - [id number] - [id number] Implanted:Qty: 1 on 08/30/2019 by Matt Adhikari MD at [facility] [employer] 03/16/2021 [id number] / [id number] / [id number] Procedures * Due to [place] Fourand[employer] law, this organization might not be sharing negative HIV tests. Procedure Name Priority Date/Time Associated Diagnosis Comments BASIC METABOLIC PANEL Routine 12/09/2020 2:26 PM EDT Vesicovaginal fistula HEMOGLOBIN A1C Timed 09/07/2019 7:52 AM EDT from Last 3 Months or Most Recently Relevant to Health Maintenance Results * Due to [place] Fourand[employer] law, this organization might not be sharing negative HIV tests. * (ABNORMAL) Basic metabolic panel (12/09/2020 2:26 PM EDT) NA 139 135 - 145 mmol/L 12/09/2020 3:25 PM EDT [facility] K 4.1 3.5 - 5.3 mmol/L 12/09/2020 3:25 PM EDT [facility] Cl 105 97 - 110 mmol/L 12/09/2020 3:25 PM EDT [facility] CO2 28 24 - 32 mmol/L 12/09/2020 3:25 PM EDT [facility] BUN 16 7 - 23 mg/dL 12/09/2020 3:25 PM EDT [facility] Creatinine 0.55 0.50 - 1.20 mg/dL 12/09/2020 3:25 PM EDT [facility] Glucose 155(H) 70 - 99 mg/dL 12/09/2020 3:25 PM EDT [facility] Calcium 10.5 8.7 - 10.7 mg/dL 12/09/2020 3:25 PM EDT [facility] Anion Gap 6 5 - 15 12/09/2020 3:25 PM EDT [facility] eGFR Non- >90 >=90 mL/min/BS A 12/09/2020 3:25 PM EDT [facility] eGFR >90 >=90 mL/min/BS A 12/09/2020 3:25 PM T [facility] Comment: Units = mL/min/1.73 m2 Glomerular Filtration Rate (GFR) is estimated based on the CKD-EPI Creatinine Equation (2009). Stage Description GFR 1 Normal >=90 mL/min/BSA 2 Mildly decreased GFR 60-89 mL/min/BSA 3 Moderately decreased GFR 30-59 mL/min/BSA 4 Severely decreased GFR 15-29 mL/min/BSA 5 Kidney Failure <15 mL/min/BSA Blood Structure of peripheral vein / Unknown Venipuncture / Unknown 12/09/2020 2:26 PM EDT 12/09/2020 2:48 PM EDT Piper Per[facility] BLOOD ORDERABLES Final Result Performing Organization Address City/[facility]/ZIP Co de Phone Number [facility] [address] [place] [address], [place] * (ABNORMAL) Hemoglobin A1c (09/07/2019 7:52 AM EDT) Hemoglobin A1C 6.2(H) <5.7 % of total Hgb 09/07/2019 10:02 PM EDT [email or web address] Comment: For someone without known diabetes, a [...] (MG/DL) 131 (calc) 09/07/2019 10:02 PM EDT [email or web address] eAG (MMOL/L) 7.3 (calc) 09/07/2019 10:02 PM EDT [email or web address] Blood Implantable venous catheter submitted as specimen / Unknown Existing Catheter / Unknown 09/07/2019 7:52 AM EDT 09/07/2019 8:28 AM EDT Narrative [facility] - 09/07/2019 10:02 PM EDT [facility] Received Date: Amara Fuentes [facility] BLOOD ORDERABLES Ginger l Result [facility] [address] [facility] [address]rd [address], [place] [address], Flash Valet [facility] [address] [facility] [address], [place] [address], [place] [phone] from Last 3 Months or Most Recently Relevant to Health Maintenance Insurance MEDICARE [facility] Advance Directives Documents on File Type Date Recorded Patient Referral Nurse Expl [facility] Care Proxy 09/06/2019 9:12 AM 09/04 * Full Code (Latest Code Status on File) Date Activated Date Inactivated Comments 07/26/2019 5:37 AM 07/26/2019 3:51 PM Care Teams A/C Technician Relationship Specialty Start Date End Date Buzz Bullock [address] [place] [phone] PCP - General Nurse Practitioner 06/13/19
--- OUTSIDE RECORDS SUMMARY | 2024-12-21 12:07 | XMS_ITS | Encounter Summary ---
Author Organization [employer] Address [address] [facility] [address] [place] [address] Care Team Providers Care Commodity Industry Analyst Name Role Phone Bibi Hernandez JOSE Primary Care Provider [phone] Ruby Avery Unavailable Encounter Details Date Type Department Care Team ([facility] Contact Info) Description 06/07/2024 Orders Only [facility] [address] [place], [place] [id number] Provider, MD Isabella Social History Tobacco Use [...] Description 02/08/2025 9:00 AM EDT Office Visit [facility] [address] [place] [address] Bibi Hernandez ANP [address] [place] [address] documented as of this encounter Procedures Procedure [...] documented as of this encounter Care Teams Commodity Industry Analyst Relationship Specialty Start Date End Date Bibi Hernandez ANP [address] [place] [address] PCP - General Family Medicine 11/27/20 Ruby Avery [address] [address] Endocrinology 11/07/24 documented as of this encounter
--- OUTSIDE RECORDS SUMMARY | 2024-12-21 12:07 | XMS_ITS ---
Author Organization [facility] Address [address] [place] [address] Care Team Providers Care Service Station Helper Name Role Phone Kobe Buzz Zia Primary Care Provider [phone] Active Problems Problem Noted Date Diagnosed Date [...]
--- OUTSIDE RECORDS SUMMARY | 2024-12-21 12:07 | XMS_ITS | Encounter Summary ---
Author Organization [employer] Address [address] [facility] [address] [place] [address] Care Team Providers Care Board Finisher Name Role Phone Bibi Hernandez Primary Care Provider [phone] Ruby Avery Unavailable Encounter Details Date Type Department Care Team ([facility] Contact Info) Description 12/21/2024 Orders Only GENERIC EXTERNAL DATA [...] Description 02/08/2025 9:00 AM EDT Office Visit [facility] [address] [place] [address] Bibi Hernandez ANP [address] [place] [address] documented as of this encounter Procedures Procedure Name Priority Date/Time Associated Diagnosis Comments GLUCOSE, WHOLE BLOOD Routine 12/21/2024 10:39 AM EDT documented in this encounter Results * (ABNORMAL) Glucose, Whole Blood (12/21/2024 10:39 AM EDT) Glucose, Whole Blood 253(H) 60 - 115 mg/dL [facility] Comment:METER #: [id number] 0Testing performed in the Endocrinology Department [address] , [address], [facility]. 12/21/2024 10:3 9 AM EDT 12/21/2024 10:42 AM EDT us Generic External Data Provider LAB BLOOD ORDERAB LES Final Result [facility] [address] [place] [address] [phone] documented in this encounter Visit Diagnoses Not on filedocumented in this encounter Additional Health Concerns Assessment Noted Time PHQ-9 Depression Total Score: 8 11/09/19 25 10:45 AM EDT documented as of this encounter Care Teams Board Finisher Relationship Specialty Start Date End Date Bibi Hernandez ANP [address] [place] [address] PCP - General Family Medicine 11/27/20 Ruby Avery [address] [address] Endocrinology 11/07/24 documented as of this encounter
== END 2024-12-21 10:58 | disposition home or self-care (01) ==
LOC: HO.ENCR 10:30
PROVIDERS: PCP Nurse Practitioner Primary Care; Visit Provider Student in an Organized Health Care Education/Training Program
DX: Z13.9 Encounter for screening, unspecified (principal); E11.65 Type 2 diabetes mellitus with hyperglycemia
CPT/HCPCS: 95251; 99214

== ENCOUNTER → 2024-12-21 10:30 | Outpatient (BNVA) | payer MEDICARE, MEDICAID, SELFPAY | PROVIDERS: PCP Nurse Practitioner Primary Care; Visit Provider Student in an Organized Health Care Education/Training Program | DX: E11.65 Type 2 diabetes mellitus with hyperglycemia (principal); E78.2 Mixed hyperlipidemia; Z13.9 Encounter for screening, unspecified; Z79.4 Long term (current) use of insulin; Z79.85 Long-term (current) use of injectable non-insulin antidiabetic drugs | CPT/HCPCS: 82947; 83036; 99212 ==